=== PATIENT | male | born 1965 | race American Indian/Alaskan Native ===

== ENCOUNTER 2016-04-18 07:01 | Emergency (ER) | payer MEDICAID ==
[2016-04-18 07:39] VITALS: BP 104/67
--- NOTE | 2016-04-18 10:29 | Cat Scan Report ---
CT NECK WITHOUT CONTRAST: 04/18/16 09:53 CLINICAL: Choking, tracheostomy and history of swelling. COMPARISON: CT neck with contrast 01/03/16 and 10/10/15 TECHNIQUE: Volumetric acquisition and 1.25 mm axial scan reconstructions without contrast. FINDINGS: The airway and tracheostomy tube are satisfactory. Numerous bilateral surgical clips status post total laryngectomy. No mass, fluid collection or lymphadenopathy of the neck. Stable moderate thickening of the oral pharyngeal and hypopharyngeal mucosa. Bilateral ethmoid and maxillary sinusitis with air-fluid levels in the maxillary sinuses. The sphenoid sinuses are clear except for mild mucoperiosteal thickening of the right sphenoid sinus. IMPRESSION: Status post total laryngectomy. Persistent moderate idiopathic edema of the oropharynx and hypopharynx but no compromise of the airway.
--- NOTE | 2016-04-18 10:29 | Emergency Department Report ---
HPI - General Chief Complaint: Upper Respiratory Infection Time Seen by Provider: 04/18/16 08:26 - HPI HPI: Chief complaint: Choking HPI: Patient is 50-year-old male with history of throat cancer and has a chronic tracheostomy. Patient was seen yesterday at [facility] for the same problem of feeling like he was choking. Patient was diagnosed with bronchitis and started on Zithromax and a Medrol Dosepak. Patient states he's had 2 doses and is no better and came here. Patient has had previous problems with swelling to his neck area as gleaned from the old chart. Patient himself is difficult to evaluate as he cannot talk secondary to the trach and he cannot read or write. Most of the history was gained from or no questions. Finally patient was able to show me a text on his phone requesting pain medication until he can get back to see his doctor. Patient takes MS Contin daily and hydrocodone for breakthrough pain. Mode of arrival: EMS Source: Patient old chart Began: 4-5 days Duration: 4-5 days Context: Patient states he's been coughing up white sputum but denies fever but complains of chills. Quality: Unable to assess Severity: Improved with: Nothing Worsened with: Drinking fluids seems to make the choking worse Associated signs and symptoms: Denies nausea vomiting or diarrhea. 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 Removal of peg tube,. skin grafts, removed from left wrist and right inner thigh - Social History Smoking Status: Former Smoker Substance Use Type: None - Medications Home Medications: Home Medications Medication Instructions Recorded Confirmed Last Taken Type Docusate Sodium [Colace CAP] 100 mg PO BID PRN 10/01/15 04/18/16 04/18/16 History Hydrochlorothiazide [HCTZ] 25 mg PO QDAY 10/01/15 04/18/16 04/18/16 History Oxycodone HCl [Oxycontin] 10 mg PO QID 10/01/15 04/18/16 04/18/16 History Aspirin EC [Aspirin Enteric Coated 325 mg PO QDAY #30 tablet. 10/02/15 Unknown Rx TAB] Morphine ER [Ms Contin ER] 15 mg PO BID 10/10/15 04/18/16 04/18/16 History ALPRAZolam [Xanax TAB] 0.25 mg PO BID PRN #10 tab 10/28/15 04/18/16 Unknown Rx Pregabalin [Lyrica] 50 mg PO BID 10/28/15 04/18/16 04/18/16 History ALBUTEROL Inhaler [ProAir HFA 2 puff IH QID PRN #1 inhalation 03/05/16 04/18/16 Unknown Rx Inhaler] Cetirizine HCl [ZyrTEC] 10 mg PO QDAY #20 capsule 03/05/16 04/18/16 Unknown Rx Azithromycin [Zithromax Z-FLIP] 250 mg PO DAILY 04/18/16 04/18/16 04/18/16 History HYDROcodone/APAP 7.5-325 [[place] 1 each PO Q6HR PRN #14 tablet 04/18/16 Unknown Rx 7.5/325] methylPREDNISolone [Medrol Dose 0 mg PO QDAY 04/18/16 04/18/16 04/18/16 History Flip] ED Review of Systems ROS: Stated complaint: YOSVANY Other details as noted in HPI Comment: Unobtainable due to pts medical conditions (unable to obtain further than HPI neuro to trach and patient's inability to read and write) Physical Exam - Physical Exam Vital Signs: Vital Signs 04/18/16 07:20 Temperature 98.4 F Pulse Rate 84 Respiratory 16 Rate Blood Pressure 104/67 O2 Sat by Pulse 96 Oximetry Physical Exam: GENERAL: The patient is well-developed well-nourished . HEENT: Normocephalic. Atraumatic. Extraocular motions are intact. Patient has moist mucous membranes. Patient with a trach and collar. NECK: Supple. No meningitic signs are noted. There is no adenopathy noted. CHEST/LUNGS: Clear to auscultation. There is no respiratory distress noted. No respiratory difficulty and no drainage from the trach. HEART/CARDIOVASCULAR: Regular. There is no tachycardia. There is no gallop rub or murmur. ABDOMEN: Abdomen is soft, nontender. Patient has normal bowel sounds. There is no abdominal distention. SKIN: There is no rash. There is no edema. There is no diaphoresis. NEURO: The patient is awake, alert, and appropriate. The patient is cooperative. The patient has normal speech. MUSCULOSKELETAL: There is no tenderness or deformity. There is no limitation range of motion. There is no evidence of acute injury. ED Course Vital Signs 04/18/16 07:20 Temperature 98.4 F Pulse Rate 84 Respiratory 16 Rate Blood Pressure 104/67 O2 Sat by Pulse 96 Oximetry - Reevaluation(s) Reevaluation #1: 04/18/16 10:31 Respiratory checked trach and there is no problem. Patient then given hydrocodone with improvement. ED Medical Decision Making - Radiology Data Radiology results: report reviewed (CT of the neck showed no acute changes. Chronic edema.) Critical care attestation.: If time is entered above; I have spent that time in minutes in the direct care of this critically ill patient, excluding procedure time. ED Disposition Clinical Impression: Tracheostomy dependent Chronic pain Qualifiers: Chronic pain type: due to neoplasm Qualified Code(s): G89.3 - Neoplasm related pain (acute) (chronic) Disposition: DISCHARGED TO HOME OR SELFCARE Is pt being admited?: No Does the pt Need Aspirin: No Instructions: Tracheostomy Care (ED), Chronic Pain (ED) Prescriptions: HYDROcodone/APAP 7.5-325 [[place] 7.5/325] 1 each PO Q6HR PRN #14 tablet PRN Reason: Pain Referrals: RANDALL PÉREZ MD [Primary Care Provider] - 3-5 Days Time of Disposition: 10:42
[2016-04-18] MEDS ORDERED: NORCO 7.5/325 ONE (10:48)
[2016-04-18] MEDS ORDERED: NORCO 7.5/325 PO ONE (10:52)
== END 2016-04-18 10:58 | disposition home or self-care (01) ==
LOC: ED 07:01
DX: G89.3 Neoplasm related pain (acute) (chronic) (principal); I10 Essential (primary) hypertension; Z99.11 Dependence on respirator [ventilator] status; Z87.891 Personal history of nicotine dependence
CPT/HCPCS: 70490

== ENCOUNTER 2016-05-07 12:03 | Emergency (ER) | payer MEDICAID ==
--- NOTE | 2016-05-07 14:57 | XRay Report ---
CHEST 2 VIEWS INDICATION: Cough, fever. COMPARISON: 03/05/2016 FINDINGS: PA and lateral chest radiographs, 3 images, demonstrate better inspiration with now normal cardiomediastinal silhouette and clearing of bibasilar atelectasis. Slight increased right lateral costophrenic angle blunting though not excluded for subtle pleural fluid or pleural thickening. No large pleural effusions or CHF however. Multiple surgical clips about the thoracic inlet again seen. CONCLUSION: No significant acute chest process except for slight costophrenic angle blunting on the right, as described. Please correlate. Thank you for the opportunity to participate in this patient's care.
--- NOTE | 2016-05-07 18:14 | Emergency Department Report ---
- General Chief Complaint: Upper Respiratory Infection Stated Complaint: COUGH/YOSVANY Time Seen by Provider: 05/07/16 17:45 Source: patient Mode of arrival: Ambulatory Limitations: No Limitations - History of Present Illness Initial Comments: Patient with many PMH including HTN, TIA, and throat cancer w/ permanent tracheostomy c/o of cough productive of greenish sputum x 2 dyas. Reports fever and chills, body aches. Denies chest pain or discomfort, spitting/coughing up blood, SOB, wheezing, N/V/ D, abdominal discomfort, symptoms. Denies self treatment. Denies known sick contacts. - Related Data Home Medications Medication Instructions Recorded Confirmed Last Taken Docusate Sodium [Colace CAP] 100 mg PO BID PRN 10/01/15 04/18/16 04/18/16 Hydrochlorothiazide [HCTZ] 25 mg PO QDAY 10/01/15 04/18/16 04/18/16 Oxycodone HCl [Oxycontin] 10 mg PO QID 10/01/15 04/18/16 04/18/16 Morphine ER [Ms Contin ER] 15 mg PO BID 10/10/15 04/18/16 04/18/16 Pregabalin [Lyrica] 50 mg PO BID 10/28/15 04/18/16 04/18/16 methylPREDNISolone [Medrol Dose 0 mg PO QDAY 04/18/16 04/18/16 04/18/16 Flip] Previous Rx's Medication Instructions Recorded Last Taken Type Aspirin EC [Aspirin Enteric Coated 325 mg PO QDAY #30 tablet. 10/02/15 Unknown Rx TAB] ALPRAZolam [Xanax TAB] 0.25 mg PO BID PRN #10 tab 10/28/15 Unknown Rx Cetirizine HCl [ZyrTEC] 10 mg PO QDAY #20 capsule 03/05/16 Unknown Rx HYDROcodone/APAP 7.5-325 [[place] 1 each PO Q6HR PRN #14 tablet 04/18/16 Unknown Rx 7.5/325] ALBUTEROL Inhaler [ProAir HFA 2 puff IH QID PRN #1 inhalation 05/07/16 Unknown Rx Inhaler] Azithromycin [Zithromax Z-FLIP] 250 mg PO DAILY #6 tablet 05/07/16 Unknown Rx Allergies Allergy/AdvReac Type Severity Reaction Status Date / Time No Known Allergies Allergy Verified 05/07/16 14:15 ED Review of Systems ROS: Stated complaint: COUGH/YOSVANY Other details as noted in HPI Comment: All other systems reviewed and negative ED Past Medical Hx - Past Medical History Hx Hypertension: Yes Hx Congestive Heart Failure: No Hx Diabetes: No Hx Deep Vein Thrombosis: Yes (left upper extremity secondary to a port) Hx Asthma: No Hx COPD: No Additional medical history: throat cancer, trach placed 2012; 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 Removal of peg tube,. skin grafts, removed from left wrist and right inner thigh - Social History Smoking Status: Former Smoker Substance Use Type: None - Medications Home Medications: Home Medications Medication Instructions Recorded Confirmed Last Taken Type Docusate Sodium [Colace CAP] 100 mg PO BID PRN 10/01/15 04/18/16 04/18/16 History Hydrochlorothiazide [HCTZ] 25 mg PO QDAY 10/01/15 04/18/16 04/18/16 History Oxycodone HCl [Oxycontin] 10 mg PO QID 10/01/15 04/18/16 04/18/16 History Aspirin EC [Aspirin Enteric Coated 325 mg PO QDAY #30 tablet.dr 10/02/15 Unknown Rx TAB] Morphine ER [Ms Contin ER] 15 mg PO BID 10/10/15 04/18/16 04/18/16 History ALPRAZolam [Xanax TAB] 0.25 mg PO BID PRN #10 tab 10/28/15 04/18/16 Unknown Rx Pregabalin [Lyrica] 50 mg PO BID 10/28/15 04/18/16 04/18/16 History Cetirizine HCl [ZyrTEC] 10 mg PO QDAY #20 capsule 03/05/16 04/18/16 Unknown Rx HYDROcodone/APAP 7.5-325 [[place] 1 each PO Q6HR PRN #14 tablet 04/18/16 Unknown Rx 7.5/325] methylPREDNISolone [Medrol Dose 0 mg PO QDAY 04/18/16 04/18/16 04/18/16 History Flip] ALBUTEROL Inhaler [ProAir HFA 2 puff IH QID PRN #1 inhalation 05/07/16 Unknown Rx Inhaler] Azithromycin [Zithromax Z-FLIP] 250 mg PO DAILY #6 tablet 05/07/16 Unknown Rx ED Physical Exam - General Limitations: No Limitations General appearance: alert, in no apparent distress - Head Head exam: Present: atraumatic, normocephalic - Eye Eye exam: Present: normal appearance, PERRL, EOMI - ENT ENT exam: Present: normal exam, normal orophraynx, mucous membranes moist, TM's normal bilaterally, normal external ear exam - Neck Neck exam: Absent: normal inspection (thracheostomy), tenderness, meningismus, full ROM (contracture.), lymphadenopathy - Respiratory Respiratory exam: Present: normal lung sounds bilaterally. Absent: respiratory distress, wheezes, rales, rhonchi, stridor, chest wall tenderness, accessory muscle use, decreased breath sounds, prolonged expiratory - Cardiovascular Cardiovascular Exam: Present: regular rate, normal rhythm - GI/Abdominal GI/Abdominal exam: Present: soft, normal bowel sounds. Absent: distended, tenderness - Extremities Exam Extremities exam: Present: normal inspection, full ROM, normal capillary refill. Absent: tenderness, pedal edema, joint swelling, calf tenderness - Back Exam Back exam: Present: normal inspection, full ROM. Absent: tenderness, CVA tenderness (R), CVA tenderness (L) - Neurological Exam Neurological exam: Present: alert, oriented X3, normal gait, reflexes normal. Absent: motor sensory deficit - Psychiatric Psychiatric exam: Present: normal affect, normal mood - Skin Skin exam: Present: warm, dry, intact, normal color. Absent: rash, cyanosis, diaphoretic, petechiae, pallor ED Course Vital Signs 05/07/16 14:17 Temperature 99.1 F Pulse Rate 82 Respiratory 19 Rate Blood Pressure 142/81 O2 Sat by Pulse 100 Oximetry ED Medical Decision Making - Radiology Data Radiology results: report reviewed [facility] radiology report CXR, slight blunting of right costophrenic angle (see full report). - Differential Diagnosis pneumonia, bronchitis Critical care attestation.: If time is entered above; I have spent that time in minutes in the direct care of this critically ill patient, excluding procedure time. ED Disposition Clinical Impression: Bronchitis Disposition: DISCHARGED TO HOME OR SELFCARE Is pt being admited?: No Does the pt Need Aspirin: No Condition: Stable Instructions: Acute Bronchitis (ED) Prescriptions: ALBUTEROL Inhaler [ProAir HFA Inhaler] 2 puff IH QID PRN #1 inhalation PRN Reason: Shortness Of Breath Azithromycin [Zithromax Z-FLIP] 250 mg PO DAILY #6 tablet Referrals: DION GRIER MD [Primary Care Provider] - 2-3 Days
[2016-05-07 18:41] VITALS: BP 135/84
== END 2016-05-07 18:41 | disposition home or self-care (01) ==
LOC: ED 12:03
DX: J40 Bronchitis, not specified as acute or chronic (principal); I10 Essential (primary) hypertension; Z79.82 Long term (current) use of aspirin; Z86.73 Personal history of transient ischemic attack (TIA), and cerebral infarction without residual deficits; Z85.89 Personal history of malignant neoplasm of other organs and systems; Z86.718 Personal history of other venous thrombosis and embolism; Z87.891 Personal history of nicotine dependence
CPT/HCPCS: 71020

== ENCOUNTER 2016-05-21 05:23 | Inpatient (IN) | payer MEDICAID ==
[2016-05-21 07:45] LABS: Basophils % (Auto) 0.5 % (0.0-1.8); Eosinophils % (Auto) 0.5 % (0.0-4.3); Hemoglobin 9.6 gm/dl (11.8-15.2); Mean Corpuscular HGB Conc 33 % (32-34); Mean Corpuscular Hemoglobin 32 pg (28-32); Mean Corpuscular Volume 97 fl (84-94); Platelet Count 205 K/mm3 (140-440); Red Blood Count 2.99 M/mm3 (3.65-5.03); Red Cell Distribution Width 15.9 % (13.2-15.2); White Blood Count 4.9 K/mm3 (4.5-11.0)
--- NOTE | 2016-05-21 07:55 | Admit Criteria Form ---
Admission Criteria Documentation: SYNCOPE Clinical Indications for Admission to Inpatient Care ( Place 'X' for any and all applicable criteria): Admission is indicated for syncope and ANY ONE of the following (1)(2)(3)(4)(5) (6)(7) : [X ]I. Inpatient admission required rather than observation care (Also use Syncope: Observation Care Criteria as appropriate) because of ANY ONE of the following: [ ]a) Hemodynamic instability that is severe or persistent [ ]b) Cardiac arrhythmias of immediate concern identified or strongly suspected (eg, needs electrophysiologic study) [ ]c) Acute coronary syndrome identified (Also use Myocardial Infarction or Angina Criteria form ) [ ]d) Structural cardiac disorder (eg, aortic stenosis) suspected as cause that requires immediate correction [ ]e) Respiratory symptoms (eg, dyspnea, tachypnea) that are severe or persistent [X ]f) Neurologic signs or symptoms that are severe or persistent ( eg, stroke, seizures, altered mental status) [ ]g) Severe electrolyte abnormalities requiring inpatient care [ ]h) Supplemental oxygen or respiratory treatment for over 24 hrs that are performable only in acute inpatient setting [ ]i) IV fluid to replace significant ongoing (eg, for over 24 hrs ) losses (>3 L/m2 per day) [ ]j) Continuous intravenous infusion of anticoagulation, platelet inhibitor, vasoactive, or antiarrhythmic medication(15)(16) [ ]k) Pulmonary artery catheter monitoring [ ]l) Temporary pacemaker placement(17) [ ]m) Emergent cardioversion(18) [ ]n) Other conditions, treatment or monitoring requiring inpatient admission [ ]II. Suspicion of imminently dangerous cause (eg, rare causes like pericardial tamponade, pulmonary embolism) [ ]III. Syncope causing severe injury requiring hospitalization Extended stay beyond goal length of stay may be needed for(28) [ ]a) Dangerous arrhythmia(15)(23)(27)(29) [ ]b) Myocardial ischemia [ ]c) Seizure disorder [ ]d) Syncope-related injuries The original [place] content created by [employer] has been revised. The portions of the content which have been revised are identified through the use of italic text or in bold, and [facility] [employer] has neither reviewed nor approved the modified material. All other unmodified content is copyright [employer] [facility] [employer]. Please see references footnoted in the original [facility] edition 2016 Admission Criteria Met: Yes
[2016-05-21 08:15] LABS: Anion Gap 19 mmol/L; BUN/Creatinine Ratio 18.33; Blood Urea Nitrogen 11 mg/dL (9-20); Calcium 8.8 mg/dL (8.4-10.2); Carbon Dioxide 23 mmol/L (22-30); Chloride 98.1 mmol/L (98-107); Glucose 92 mg/dL (75-100); Potassium 3.7 mmol/L (3.6-5.0); Sodium 136 mmol/L (137-145)
--- NOTE | 2016-05-21 08:17 | Cat Scan Report ---
CT HEAD WITHOUT CONTRAST INDICATION: Headache. COMPARISON: 10/01/2015. FINDINGS: Noncontrast head CT again demonstrates age appropriate ventricles and sulci with mild periventricular and mild to moderate bilateral kruse radiata hypodense small vessel ischemic disease extending to the vertex as on axial image 39, series 2, amongst others. No definite acute infarct, hemorrhage, mass effect or midline shift. No abnormal extra-axial fluid collections. Normal posterior fossa with preserved basilar cisterns. Severe left and moderate to severe right ethmoid air cell opacification again noted as also mild bilateral sphenoid sinusitis. Right frontal sinus hypoplastic. Minimal left frontal sinus mucosal thickening. Moderate to severe bilateral mastoid air cell opacification also again seen. Mild atherosclerotic internal carotid artery calcifications. Intact calvarium. Normal scalp. Right earring. Right more than left external auditory canal debris may be directly visualized. Edentulous jaw. Numerous surgical clips in the neck. CONCLUSION: No acute intracranial CT abnormality or significant interval change with age appropriate atrophy, microvascular changes, extensive sinus disease and mastoiditis noted, as described. Thank you for the opportunity to participate in this patient's care.
--- NOTE | 2016-05-21 08:24 | Emergency Department Report ---
HPI - General Chief Complaint: Syncope Time Seen by Provider: 05/21/16 07:47 - HPI HPI: 50-year-old Afro[place] male presents to the emergency department by EMS from home after he had 4 episodes of loss of consciousness. Patient's brothers bedside and says that he heard the patient walking around and then heard a noise and found the patient unresponsive on the ground. He did not feel that the patient had a pulse that he started doing chest compressions and shaking the patient and eventually the patient appeared to take a deep breath and became more awake. After that time the patient was sitting on the bed and his eyes rolled in the back of his head and he appeared to become very rigid and unresponsive it again. The brother says that this happened about 4 times in total. The patient is been complaining of a headache down the left side of his face, 10 out of 10, that is been going on for the past few days. Patient is nonverbal at baseline secondary to a tracheostomy. Patient took 2 Tylenol this morning and one oxycodone. He has a past medical history of DVT to the left upper extremity secondary to a port, hypertension, throat cancer and trach placement. 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 Removal of peg tube,. skin grafts, removed from left wrist and right inner thigh - Social History Smoking Status: Former Smoker Substance Use Type: None - Medications Home Medications: Home Medications Medication Instructions Recorded Confirmed Last Taken Type Docusate Sodium [Colace CAP] 100 mg PO BID PRN 10/01/15 05/21/16 04/18/16 History Hydrochlorothiazide [HCTZ] 25 mg PO QDAY 10/01/15 05/21/16 04/18/16 History Oxycodone HCl [Oxycontin] 10 mg PO QID 10/01/15 05/21/16 04/18/16 History Morphine ER [Ms Contin ER] 15 mg PO BID 10/10/15 05/21/16 04/18/16 History Pregabalin [Lyrica] 50 mg PO BID 10/28/15 05/21/16 04/18/16 History HYDROcodone/APAP 7.5-325 [[place] 1 each PO Q6HR PRN #14 tablet 04/18/16 05/21/16 Unknown Rx 7.5/325] ALBUTEROL Inhaler [ProAir HFA 2 puff IH QID PRN #1 inhalation 05/07/16 05/21/16 Unknown Rx Inhaler] Potassium Chloride [K-Dur] 10 meq PO DAILY 05/21/16 05/21/16 Unknown History ED Review of Systems ROS: Stated complaint: SYNCOPE Other details as noted in HPI Comment: All other systems reviewed and negative Constitutional: denies: chills, fever Eyes: denies: eye pain, eye discharge, vision change ENT: denies: ear pain, throat pain Respiratory: denies: cough, shortness of breath, wheezing Cardiovascular: syncope. denies: chest pain, palpitations Gastrointestinal: denies: abdominal pain, nausea, diarrhea Genitourinary: denies: urgency, dysuria Musculoskeletal: denies: back pain, joint swelling, arthralgia Skin: denies: rash, lesions Neurological: headache. denies: numbness Physical Exam - Physical Exam Vital Signs: Vital Signs 05/21/16 05/21/16 05/21/16 05:26 05:57 06:00 Temperature 97.6 F Pulse Rate 52 L 50 L Respiratory 18 15 Rate Blood Pressure 83/57 89/55 78/47 Blood Pressure [Left] O2 Sat by Pulse 99 91 Oximetry 05/21/16 05/21/16 05/21/16 06:05 06:11 06:15 Temperature Pulse Rate 53 L 50 L 52 L Respiratory 17 16 22 Rate Blood Pressure 92/58 92/58 92/58 Blood Pressure [Left] O2 Sat by Pulse 99 95 97 Oximetry 05/21/16 05/21/16 05/21/16 06:21 06:25 06:31 Temperature Pulse Rate 49 L 74 58 L Respiratory 12 15 17 Rate Blood Pressure 92/58 92/58 89/55 Blood Pressure [Left] O2 Sat by Pulse 99 97 Oximetry 05/21/16 05/21/16 05/21/16 06:35 06:41 06:45 Temperature Pulse Rate 57 L 52 L 56 L Respiratory 19 14 14 Rate Blood Pressure 93/56 93/56 93/56 Blood Pressure [Left] O2 Sat by Pulse 100 97 74 L Oximetry 05/21/16 05/21/16 05/21/16 06:51 06:55 07:00 Temperature Pulse Rate 77 56 L 55 L Respiratory 17 15 19 Rate Blood Pressure 93/56 93/56 94/59 Blood Pressure [Left] O2 Sat by Pulse 99 95 97 Oximetry 05/21/16 05/21/16 05/21/16 07:05 07:11 07:15 Temperature Pulse Rate 57 L 52 L 58 L Respiratory 13 17 19 Rate Blood Pressure 94/59 94/59 94/59 Blood Pressure [Left] O2 Sat by Pulse 98 98 89 Oximetry 05/21/16 05/21/16 07:22 07:38 Temperature Pulse Rate 50 L 74 Respiratory 20 Rate Blood Pressure Blood Pressure 100/69 [Left] O2 Sat by Pulse Oximetry Physical Exam: GENERAL: The patient is well-developed well-nourished. HEENT: Normocephalic. Atraumatic. Extraocular motions are intact. Patient has moist mucous membranes. Pupils equal reactive to light bilateral. No nystagmus. NECK: Supple. Trachea is midline. Trach and collar in place. CHEST/LUNGS: Clear to auscultation. There is no respiratory distress noted. HEART/CARDIOVASCULAR: Regular. There is no tachycardia. There is no gallop rub or murmur. ABDOMEN: Abdomen is soft, nontender. Patient has normal bowel sounds. There is no abdominal distention. SKIN: There is no rash. There is no edema. There is no diaphoresis. NEURO: The patient is awake, alert, and oriented. The patient is cooperative. The patient has no focal neurologic deficits. Patient is nonverbal secondary to tracheostomy. MUSCULOSKELETAL: There is no tenderness or deformity. There is no limitation range of motion. There is no evidence of acute injury. ED Course Vital Signs 05/21/16 05/21/16 05/21/16 05:26 05:57 06:00 Temperature 97.6 F Pulse Rate 52 L 50 L Respiratory 18 15 Rate Blood Pressure 83/57 89/55 78/47 Blood Pressure [Left] O2 Sat by Pulse 99 91 Oximetry 05/21/16 05/21/16 05/21/16 06:05 06:11 06:15 Temperature Pulse Rate 53 L 50 L 52 L Respiratory 17 16 22 Rate Blood Pressure 92/58 92/58 92/58 Blood Pressure [Left] O2 Sat by Pulse 99 95 97 Oximetry 05/21/16 05/21/16 05/21/16 06:21 06:25 06:31 Temperature Pulse Rate 49 L 74 58 L Respiratory 12 15 17 Rate Blood Pressure 92/58 92/58 89/55 Blood Pressure [Left] O2 Sat by Pulse 99 97 Oximetry 05/21/16 05/21/16 05/21/16 06:35 06:41 06:45 Temperature Pulse Rate 57 L 52 L 56 L Respiratory 19 14 14 Rate Blood Pressure 93/56 93/56 93/56 Blood Pressure [Left] O2 Sat by Pulse 100 97 74 L Oximetry 05/21/16 05/21/16 05/21/16 06:51 06:55 07:00 Temperature Pulse Rate 77 56 L 55 L Respiratory 17 15 19 Rate Blood Pressure 93/56 93/56 94/59 Blood Pressure [Left] O2 Sat by Pulse 99 95 97 Oximetry 05/21/16 05/21/16 05/21/16 07:05 07:11 07:15 Temperature Pulse Rate 57 L 52 L 58 L Respiratory 13 17 19 Rate Blood Pressure 94/59 94/59 94/59 Blood Pressure [Left] O2 Sat by Pulse 98 98 89 Oximetry 05/21/16 05/21/16 07:22 07:38 Temperature Pulse Rate 50 L 74 Respiratory 20 Rate Blood Pressure Blood Pressure 100/69 [Left] O2 Sat by Pulse Oximetry ED Medical Decision Making - Lab Data Result diagrams: 05/21/16 07:30 05/21/16 07:30 - EKG Data -: EKG Interpreted by Me EKG shows normal: sinus rhythm, axis, intervals, QRS complexes, ST-T waves Rate: normal - EKG Data When compared to previous EKG there are: previous EKG unavailable Interpretation: normal EKG - Radiology Data Radiology results: report reviewed, image reviewed interpreted by me: Chest x-ray did not show any acute process. Heart is normal shape and size. No effusions. No pneumothorax. No signs of pneumonia seen. - Medical Decision Making This is a 50-year-old male presents to the emergency department after having 4 syncopal episodes that may have also been seizures, with 3 of them witnessed. Since being in the emergency department the patient has been awake and alert and there is been no further syncope or seizure-like activity. Patient's EKG shows normal sinus rhythm without ST elevation IA, dysrhythmia or ischemia. Patient's labs and an mostly unremarkable other than signs of hypothyroidism with a TSH greater than 25. However with multiple recurring episodes of loss of consciousness, the patient will need continued monitoring and further evaluation and has been accepted for admission by the hospitalist. - Differential Diagnosis syncope, seizure, brain bleed, CVA Critical Care Time: No Critical care attestation.: If time is entered above; I have spent that time in minutes in the direct care of this critically ill patient, excluding procedure time. ED Disposition Clinical Impression: Syncope Qualifiers: Syncope type: unspecified Qualified Code(s): R55 - Syncope and collapse Hypothyroid Qualifiers: Hypothyroidism type: unspecified Qualified Code(s): E03.9 - Hypothyroidism, unspecified Anemia Qualifiers: Anemia type: unspecified type Qualified Code(s): D64.9 - Anemia, unspecified Hypotension Qualifiers: Hypotension type: unspecified hypotension type Qualified Code(s): I95.9 - Hypotension, unspecified Disposition: OP ADMITTED IP TO THIS HOSP Is pt being admited?: Yes Condition: Stable Time of Disposition: 14:12
[2016-05-21] MEDS ORDERED: NACL 0.9% 1000 ML 1,000 ML IV ONE (08:25)
--- NOTE | 2016-05-21 10:56 | XRay Report ---
SINGLE VIEW CHEST: Compared to 05/07/16. HISTORY: Syncope/hypertension. FINDINGS: Normal cardiomediastinal silhouette. Trachea is midline. No consolidation, pneumothorax or pleural effusion. IMPRESSION: No acute cardiopulmonary findings.
[2016-05-21] MEDS ORDERED: DULCOLAX PR PRN (11:20)
[2016-05-21] MEDS ORDERED: TYLENOL PO PRN (11:20)
[2016-05-21] MEDS ORDERED: ZOFRAN IV PRN (11:20)
[2016-05-21] MEDS ORDERED: MILK OF MAGNESIA PO PRN (11:20)
[2016-05-21] MEDS ORDERED: ATIVAN IV PRN (11:24)
[2016-05-21] MEDS ORDERED: XANAX PO PRN (11:25)
[2016-05-21] MEDS ORDERED: CLARITIN PO ONE (11:26)
[2016-05-21] MEDS ORDERED: PROVENTIL IH PRN (11:26)
[2016-05-21] MEDS ORDERED: CLARITIN ONE (13:12)
[2016-05-21] MEDS ORDERED: COLACE PO PRN (14:28)
--- NOTE | 2016-05-21 14:34 | History and Physical Report ---
History of Present Illness Date of examination: 05/21/16 Date of admission: 05/21/16 11:20 Chief complaint: Witnessed Seizure History of present illness: Patient is a 50 year old male with hx of laryngeal carcinoma S/p Trach, HTN, Remote hx of DVT, skin graft who presented to the ER after 4 episodes of witnessed seizure following a syncopal episode. The patient who is non verbal secondary to the Trache and Throat CA according to the brother Who reported that he heard a loud noise and when he went to check on him found the patient unresponsive on the ground. he placed him on the bed and when he did not feel that the patient had a pulse that he started doing chest compressions and shaking the patient and eventually the patient appeared to take a deep breath and became more awake. After that time the patient was sitting on the bed and his eyes rolled in the back of his head and he appeared to become very rigid and unresponsive it again. The brother says that this happened about 4 times in total. The patient denies any knowledge of the event or any prior event. In the ER he complained of headache down the left side of his face, 10 out of 10, but reports its been going on for the past few days. ER documentation shows Patient took 2 Tylenol this morning and one oxycodone. ROS Constitutional: No fever, fatigue or weight loss. Skin: No rash. Eyes: No recent vision problems or eye pain. ENT: No congestion, ear pain, or sore throat. Endocrine: No thyroid problems. Cardiovascular: No chest pain. Respiratory: No cough, shortness of breath, congestion, or wheezing. Gastrointestinal: No abdominal pain, nausea, vomiting, or diarrhea. Genitourinary: No dysuria. Musculoskeletal: No joint swelling. Neurologic: Positive headache, from a reported seizure and syncopal episode . Hematologic: No unusual bruising or bleeding. Psychiatric: No psychiatric problems, hallucinations or depression. All other systems reviewed and otherwise negative. Past History Past Medical History: cancer (Throat CA), DVT (secondary to port) Past Surgical History: Other (tracheostomy, peg tube placement, skin graft) Family history: no significant family history Medications and Allergies Allergies Allergy/AdvReac Type Severity Reaction Status Date / Time No Known Allergies Allergy Verified 05/07/16 14:15 Home Medications Medication Instructions Recorded Confirmed Last Taken Type Docusate Sodium [Colace CAP] 100 mg PO BID PRN 10/01/15 05/21/16 04/18/16 History Hydrochlorothiazide [HCTZ] 25 mg PO QDAY 10/01/15 05/21/16 04/18/16 History Oxycodone HCl [Oxycontin] 10 mg PO QID 10/01/15 05/21/16 04/18/16 History Morphine ER [Ms Contin ER] 15 mg PO BID 10/10/15 05/21/16 04/18/16 History Pregabalin [Lyrica] 50 mg PO BID 10/28/15 05/21/16 04/18/16 History HYDROcodone/APAP 7.5-325 [[place] 1 each PO Q6HR PRN #14 tablet 04/18/16 05/21/16 Unknown Rx 7.5/325] ALBUTEROL Inhaler [ProAir HFA 2 puff IH QID PRN #1 inhalation 05/07/16 05/21/16 Unknown Rx Inhaler] Potassium Chloride [K-Dur] 10 meq PO DAILY 05/21/16 05/21/16 Unknown History Active Meds: Active Medications Acetaminophen (Tylenol) 650 mg PO Q4H PRN PRN Reason: Pain MILD(1-3)/Fever >100.5/HERNANDEZ Acetaminophen/Hydrocodone Bitart ([place] 7.5/325) 1 each PO Q6HR PRN PRN Reason: Pain Albuterol (Proventil) 2.5 mg IH Q4H PRN PRN Reason: shortness of breath Albuterol/Ipratropium (Duoneb 0.5 Mg-3 Mg/3 Ml Soln) 1 ampul IH TIDRT DB Alprazolam (Xanax) 0.25 mg PO BID PRN PRN Reason: Anxiety Bisacodyl (Dulcolax) 10 mg MA QDAY PRN PRN Reason: Constipation unrelieved by MOM Docusate Sodium (Colace) 100 mg PO BID PRN PRN Reason: Nausea And Vomiting Hydrochlorothiazide (Hctz) 25 mg PO QDAY DB Lorazepam (Ativan) 1 mg IV Q4H PRN PRN Reason: Seizures Magnesium Hydroxide (Milk Of Magnesia) 30 ml PO Q4H PRN PRN Reason: Constipation Morphine Sulfate (Ms Contin Er) 15 mg PO BID DB Ondansetron HCl (Zofran) 4 mg IV Q8H PRN PRN Reason: N/V unrelieved by Reglan Potassium Chloride (K-Dur) 10 meq PO DAILY DB Pregabalin (Lyrica) 50 mg PO BID DB Exam - Physical Exam Narrative exam: VITAL SIGNS: Reviewed. GENERAL: The patient appeared well nourished and normally developed. Vital signs as documented. HEAD: No signs of head trauma. EYES: Pupils are equal. Extraocular motions intact. EARS: Hearing grossly intact. MOUTH: Oropharynx is normal. NECK: Tracheostomy, no DJD CHEST: Chest with clear breath sounds bilaterally. No wheezes, rales, or rhonchi. CARDIAC: Regular rate and rhythm. S1 and S2, without murmurs, gallops, or rubs. VASCULAR: No Edema. Peripheral pulses normal and equal in all extremities. ABDOMEN: Soft, without detectable tenderness. No sign of distention. No rebound or guarding, and no masses palpated. Bowel Sounds normal. MUSCULOSKELETAL: Good range of motion of all major joints. Extremities without clubbing, cyanosis or edema. NEUROLOGIC EXAM: Alert and oriented x 3. No focal sensory or strength deficits. Speech normal. Follows commands. PSYCHIATRIC: Mood normal. SKIN: skin graft. - Constitutional Vitals: Temp Pulse Resp BP Pulse Ox 0.3 F L 59 L 18 114/72 97 05/21/16 13:00 05/21/16 13:00 05/21/16 13:00 05/21/16 13:00 05/21/16 13:00 Results - Labs CBC & Chem 7: 05/22/16 06:33 05/21/16 07:30 Labs: Laboratory Last Values WBC 4.9 K/mm3 (4.5-11.0) 05/21/16 07:30 RBC 2.99 M/mm3 (3.65-5.03) L 05/21/16 07:30 Hgb 9.6 gm/dl (11.8-15.2) L 05/21/16 07:30 Hct 29.0 % (35.5-45.6) L 05/21/16 07:30 MCV 97 fl (84-94) H 05/21/16 07:30 MCH 32 pg (28-32) 05/21/16 07:30 MCHC 33 % (32-34) 05/21/16 07:30 RDW 15.9 % (13.2-15.2) H 05/21/16 07:30 Plt Count 205 K/mm3 (140-440) 05/21/16 07:30 Lymph % (Auto) 12.0 % (13.4-35.0) L 05/21/16 07:30 [place] % (Auto) 9.4 % (0.0-7.3) H 05/21/16 07:30 Eos % (Auto) 0.5 % (0.0-4.3) 05/21/16 07:30 Baso % (Auto) 0.5 % (0.0-1.8) 05/21/16 07:30 Lymph # 0.6 K/mm3 (1.2-5.4) L 05/21/16 07:30 [place] # 0.5 K/mm3 (0.0-0.8) 05/21/16 07:30 Eos # 0.0 K/mm3 (0.0-0.4) 05/21/16 07:30 Baso # 0.0 K/mm3 (0.0-0.1) 05/21/16 07:30 Seg Neutrophils % 77.6 % (40.0-70.0) H 05/21/16 07:30 Seg Neutrophils # 3.8 K/mm3 (1.8-7.7) 05/21/16 07:30 Sodium 136 mmol/L (137-145) L 05/21/16 07:30 Potassium 3.7 mmol/L (3.6-5.0) 05/21/16 07:30 Chloride 98.1 mmol/L (98-107) 05/21/16 07:30 Carbon Dioxide 23 mmol/L (22-30) 05/21/16 07:30 Anion Gap 19 mmol/L 05/21/16 07:30 BUN 11 mg/dL (9-20) 05/21/16 07:30 Creatinine 0.6 mg/dL (0.8-1.5) L 05/21/16 07:30 Estimated GFR > 60 ml/min 05/21/16 07:30 BUN/Creatinine Ratio 18.33 % 05/21/16 07:30 Glucose 92 mg/dL (75-100) 05/21/16 07:30 Calcium 8.8 mg/dL (8.4-10.2) 05/21/16 07:30 Total Creatine Kinase 70 units/L (55-170) 05/21/16 09:41 Troponin T < 0.010 ng/mL (0.00-0.029) 05/21/16 09:31 TSH 25.270 mlU/mL (0.270-4.200) H 05/21/16 09:41 - Imaging and Cardiology MRI - head: pending Assessment and Plan Assessment and plan: Patient is a 50 year old male with hx of laryngeal carcinoma S/p Trach, HTN, Remote hx of DVT, skin graft who presented to the ER after 4 episodes of witnessed seizure following a syncopal episode. The patient who is non verbal secondary to the Trache and Throat CA according to the brother Who reported that he heard a loud noise and when he went to check on him found the patient unresponsive on the ground. he placed him on the bed and when he did not feel that the patient had a pulse that he started doing chest compressions and shaking the patient and eventually the patient appeared to take a deep breath and became more awake. After that time the patient was sitting on the bed and his eyes rolled in the back of his head and he appeared to become very rigid and unresponsive it again. The brother says that this happened about 4 times in total. The patient denies any knowledge of the event or any prior event. In the ER he complained of headache down the left side of his face, 10 out of 10, but reports its been going on for the past few days. ER documentation shows Patient took 2 Tylenol this morning and one oxycodone. * Recurrent seizure-witnessed with postictal phase * Syncope * Laryngeal carcinoma status post tracheostomy Plan * Admit to [facility] * Check echocardiogram * EEG * Neurology consult * Check MRI brain to rule out metastatic disease * Ativan IV when necessary for seizure * Resume Medications * DVT/GI Prophy Advance Directives: Yes Plan of care discussed with patient/family: Yes
[2016-05-21] MEDS: DUONEB 0.5 MG-3 MG/3 ML SOLN IH SCH ×2 (14:54→20:10)
[2016-05-21] MEDS: LYRICA PO SCH ×2 (15:13→22:00)
[2016-05-21] MEDS: MS CONTIN ER PO SCH ×2 (15:14→22:01)
--- NOTE | 2016-05-21 19:49 | Magnetic Resonance Report ---
FINAL REPORT PROCEDURE: MR BRAIN WO/W CON TECHNIQUE: Magnetic resonance imaging of the brain was performed before and after the IV injection of paramagnetic contrast. HISTORY: Seizure. History of throat cancer. COMPARISON: CT scan of the brain dated 05/21/2016. FINDINGS: Skull base and calvarium: Normal. Paranasal sinuses: Pansinusitis, with hypoplastic right frontal sinus. Findings most severe in the ethmoid sinuses. Mild rightward septal deviation. Bilateral mastoiditis. Cerebellum: No evidence of hemorrhage, ischemia or mass . Brainstem: No evidence of hemorrhage, ischemia or mass . Cerebrum: No evidence of hemorrhage, ischemia or mass. Mild atrophy. Subtle area of abnormal signal intensity on diffusion-weighted imaging seen in the medulla/foramina magnum. Similar punctate areas of abnormal diffusion weighted signal intensity in the bilateral basal ganglia. 2-3 millimeter areas of CSF signal intensity on FLAIR imaging seen bilaterally at the vertices. These do not enhance. Moderate periventricular white matter abnormal signal intensity, best seen on FLAIR imaging. Ventricles: Normal in size and morphology for the patient's age. Pituitary gland and sella: Normal. Globes and orbits: Normal. Vasculature: Normal arterial and venous flow voids. Abnormal enhancement: None. Other: None. IMPRESSION: Subtle focal area of abnormal diffusion weighted imaging in the foramen magnum/medulla with punctate areas of abnormal diffusion signal intensity in the basal ganglia, may be artifact. Consider further evaluation and followup if there is concern for subtle ischemia this area. Atrophy. White matter changes likely related to chronic small vessel ischemic change. Also consider demyelination, infectious/inflammatory process, and can be seen with migraines. 2-3 millimeters areas of CSF signal intensity in the bilateral vertices, likely prominent perivascular spaces. These can also be re-evaluated on followup examination. No enhancing mass lesion. Pansinusitis and mastoiditis.
[2016-05-22 07:06] LABS: Basophils % (Auto) 0.9 % (0.0-1.8); Eosinophils % (Auto) 0.9 % (0.0-4.3); Hematocrit 30.7 % (35.5-45.6); Hemoglobin 10.1 gm/dl (11.8-15.2); Mean Corpuscular HGB Conc 33 % (32-34); Mean Corpuscular Hemoglobin 32 pg (28-32); Mean Corpuscular Volume 96 fl (84-94); Platelet Count 234 K/mm3 (140-440); Red Blood Count 3.19 M/mm3 (3.65-5.03); Red Cell Distribution Width 16.1 % (13.2-15.2); White Blood Count 4.1 K/mm3 (4.5-11.0)
[2016-05-22 07:41] LABS: BUN/Creatinine Ratio 14.28; Blood Urea Nitrogen 10 mg/dL (9-20); Carbon Dioxide 26 mmol/L (22-30); Chloride 103.7 mmol/L (98-107); Glucose 91 mg/dL (75-100); Potassium 3.9 mmol/L (3.6-5.0); Sodium 142 mmol/L (137-145)
[2016-05-22 07:56] LABS: Anion Gap 16 mmol/L
[2016-05-22] MEDS: NORCO 7.5/325 PO PRN ×2 (08:05→16:15)
[2016-05-22] MEDS: DUONEB 0.5 MG-3 MG/3 ML SOLN IH SCH ×3 (08:23→19:29)
[2016-05-22] MEDS: HCTZ PO SCH (10:39)
[2016-05-22] MEDS: MS CONTIN ER PO SCH ×2 (10:39→21:51)
[2016-05-22] MEDS: K-DUR PO SCH (10:40)
[2016-05-22] MEDS: LYRICA PO SCH ×2 (10:45→21:50)
--- NOTE | 2016-05-22 13:48 | Progress Note ---
Assessment and Plan Assessment and plan: 1. Syncopal episode Syncopal episode followed by seizure activity per family member report Cardiac enzymes within normal limits, EKG with no ischemic changes; will obtain echocardiogram 2. New-onset seizures Patient with laryngeal cancer, concern for brain metastasis as etiology of seizures CT had obtained and showed no acute abnormality, age-related atrophy MRI brain also obtained and showed no mass, atrophy, softer changes not clearly described EEG ordered Will await neurology evaluation and recommendations Will rule out infection (chest x-ray normal, obtain UA) and other possible etiologies (electrolytes within normal limits; check UDS) 3. Hypothyroidism Levothyroxine dose unknown by family TSH elevated, but free T4 within normal limits Start levothyroxine 75 mcg and adjust if needed 3. Hypertension On HCTZ Monitor BP 4. Macrocytic anemia Check B12 and folate 5. Laryngeal carcinoma status post tracheostomy 6. Remote DVT port related 7. DVT prophylaxis Start Lovenox History Interval history: Doing well, no seizure activity after admitted, no other symptoms Family at bedside Hospitalist Physical - Constitutional Vitals: Temp Pulse Resp BP Pulse Ox 98.2 F 75 18 116/77 99 05/22/16 12:35 05/22/16 12:35 05/22/16 12:35 05/22/16 12:35 05/22/16 10:00 General appearance: Present: no acute distress, well-nourished - EENT Eyes: Present: PERRL, EOM intact - Neck Neck: Present: supple, normal ROM. Absent: masses or JVD - Respiratory Respiratory effort: normal Respiratory: bilateral: CTA, negative: rales, rhonchi, wheezing - Cardiovascular Rhythm: regular Heart Sounds: Present: S1 & S2. Absent: systolic murmur - Extremities Extremities: no ischemia - Abdominal General gastrointestinal: soft, non-tender, non-distended, normal bowel sounds - Neurologic Neurologic: CNII-XII intact, no focal deficits Results - Labs CBC & Chem 7: 05/22/16 06:33 05/22/16 06:33 Labs: Laboratory Last Values WBC 4.1 K/mm3 (4.5-11.0) L 05/22/16 06:33 RBC 3.19 M/mm3 (3.65-5.03) L 05/22/16 06:33 Hgb 10.1 gm/dl (11.8-15.2) L 05/22/16 06:33 Hct 30.7 % (35.5-45.6) L 05/22/16 06:33 MCV 96 fl (84-94) H 05/22/16 06:33 MCH 32 pg (28-32) 05/22/16 06:33 MCHC 33 % (32-34) 05/22/16 06:33 RDW 16.1 % (13.2-15.2) H 05/22/16 06:33 Plt Count 234 K/mm3 (140-440) 05/22/16 06:33 Lymph % (Auto) 23.7 % (13.4-35.0) 05/22/16 06:33 [place] % (Auto) 9.6 % (0.0-7.3) H 05/22/16 06:33 Eos % (Auto) 0.9 % (0.0-4.3) 05/22/16 06:33 Baso % (Auto) 0.9 % (0.0-1.8) 05/22/16 06:33 Lymph # 1.0 K/mm3 (1.2-5.4) L 05/22/16 06:33 [place] # 0.4 K/mm3 (0.0-0.8) 05/22/16 06:33 Eos # 0.0 K/mm3 (0.0-0.4) 05/22/16 06:33 Baso # 0.0 K/mm3 (0.0-0.1) 05/22/16 06:33 Seg Neutrophils % 64.9 % (40.0-70.0) 05/22/16 06:33 Seg Neutrophils # 2.7 K/mm3 (1.8-7.7) 05/22/16 06:33 Sodium 142 mmol/L (137-145) 05/22/16 06:33 Potassium 3.9 mmol/L (3.6-5.0) 05/22/16 06:33 Chloride 103.7 mmol/L (98-107) 05/22/16 06:33 Carbon Dioxide 26 mmol/L (22-30) 05/22/16 06:33 Anion Gap 16 mmol/L 05/22/16 06:33 BUN 10 mg/dL (9-20) 05/22/16 06:33 Creatinine 0.7 mg/dL (0.8-1.5) L 05/22/16 06:33 Estimated GFR > 60 ml/min 05/22/16 06:33 BUN/Creatinine Ratio 14.28 % 05/22/16 06:33 Glucose 91 mg/dL (75-100) 05/22/16 06:33 Calcium 9.0 mg/dL (8.4-10.2) 05/22/16 06:33 Total Creatine Kinase 70 units/L (55-170) 05/21/16 09:41 Troponin T < 0.010 ng/mL (0.00-0.029) 05/21/16 14:31 TSH 25.270 mlU/mL (0.270-4.200) H 05/21/16 09:41 Free T4 0.83 ng/dL (0.76-1.46) 05/22/16 10:14 - Imaging and Cardiology Chest x-ray: image reviewed (no acute process) CT Scan - head: report reviewed MRI - head: report reviewed
[2016-05-22 15:23] LABS: Urine Drugs of Abuse Note Disclamer
[2016-05-22 15:58] LABS: Bilirubin,Urine NEG (Negative); Blood,Urine NEG (Negative); Ketones,Urine NEG (Negative); Leukocyte Esterase,Urine NEG (Negative); Nitrite,Urine NEG (Negative); Protein,Urine <15 mg/dL mg/dL (Negative); Urobilinogen,Urine < 2.0 mg/dL (<2.0)
[2016-05-22 16:41] LABS: RBC,Urine < 1.0 /HPF (0.0-6.0); WBC,Urine < 1.0 /HPF (0.0-6.0)
[2016-05-22] MEDS: LOVENOX SUB-Q SCH (21:53)
[2016-05-23] MEDS: NORCO 7.5/325 PO PRN ×3 (01:48→14:28)
[2016-05-23] MEDS: SYNTHROID PO SCH (05:56)
[2016-05-23] MEDS: DUONEB 0.5 MG-3 MG/3 ML SOLN IH SCH (08:35)
[2016-05-23] MEDS: LYRICA PO SCH ×2 (09:01→22:09)
[2016-05-23] MEDS: K-DUR PO SCH (09:01)
[2016-05-23] MEDS: MS CONTIN ER PO SCH ×2 (09:02→22:08)
[2016-05-23] MEDS: HCTZ PO SCH (09:02)
--- NOTE | 2016-05-23 16:31 | Progress Note ---
Assessment and Plan Assessment and plan: 1. Syncopal episode Syncopal episode followed by seizure activity per family member report Cardiac enzymes within normal limits, EKG with no ischemic changes; echocardiogram obtaine, results pending 2. New-onset seizures Patient with laryngeal cancer, concern for brain metastasis as etiology of seizures CT had obtained and showed no acute abnormality, age-related atrophy MRI brain also obtained and showed no mass, atrophy, softer changes not clearly described EEG ordered Will await neurology evaluation and recommendations Other etiologies ruled out - infection (chest x-ray, UA normal) and other possible etiologies (electrolytes within normal limits; UDS negative except for opiates that he received after being admitted) 3. Hypothyroidism Levothyroxine dose unknown by family TSH elevated, but free T4 within normal limits Start levothyroxine 75 mcg and adjust if needed 4. Hypertension On HCTZ Monitor BP 5. Macrocytic anemia B12 and folate within normal limits 6. Laryngeal carcinoma status post tracheostomy 7. Remote DVT port related 8. DVT prophylaxis Lovenox History Interval history: Doing well, no seizure activity after admitted, no other symptoms Family present Hospitalist Physical - Constitutional Vitals: Temp Pulse Resp BP Pulse Ox 98.2 F 99 H 15 113/76 96 05/23/16 08:49 05/23/16 08:49 05/23/16 09:02 05/23/16 08:49 05/23/16 08:41 General appearance: Present: no acute distress, well-nourished - EENT Eyes: Present: PERRL, EOM intact - Neck Neck: Present: supple, normal ROM, other (trach). Absent: masses or JVD - Respiratory Respiratory effort: normal Respiratory: bilateral: CTA, negative: rales, rhonchi, wheezing - Cardiovascular Rhythm: regular Heart Sounds: Present: S1 & S2. Absent: systolic murmur - Extremities Extremities: no ischemia - Abdominal General gastrointestinal: soft, non-tender, non-distended, normal bowel sounds - Integumentary Integumentary: Present: warm, dry. Absent: jaundice, rash - Psychiatric Psychiatric: cooperative - Neurologic Neurologic: CNII-XII intact, no focal deficits Results - Labs CBC & Chem 7: 05/22/16 06:33 05/22/16 06:33 Labs: Laboratory Last Values WBC 4.1 K/mm3 (4.5-11.0) L 05/22/16 06:33 RBC 3.19 M/mm3 (3.65-5.03) L 05/22/16 06:33 Hgb 10.1 gm/dl (11.8-15.2) L 05/22/16 06:33 Hct 30.7 % (35.5-45.6) L 05/22/16 06:33 MCV 96 fl (84-94) H 05/22/16 06:33 MCH 32 pg (28-32) 05/22/16 06:33 MCHC 33 % (32-34) 05/22/16 06:33 RDW 16.1 % (13.2-15.2) H 05/22/16 06:33 Plt Count 234 K/mm3 (140-440) 05/22/16 06:33 Lymph % (Auto) 23.7 % (13.4-35.0) 05/22/16 06:33 [place] % (Auto) 9.6 % (0.0-7.3) H 05/22/16 06:33 Eos % (Auto) 0.9 % (0.0-4.3) 05/22/16 06:33 Baso % (Auto) 0.9 % (0.0-1.8) 05/22/16 06:33 Lymph # 1.0 K/mm3 (1.2-5.4) L 05/22/16 06:33 [place] # 0.4 K/mm3 (0.0-0.8) 05/22/16 06:33 Eos # 0.0 K/mm3 (0.0-0.4) 05/22/16 06:33 Baso # 0.0 K/mm3 (0.0-0.1) 05/22/16 06:33 Seg Neutrophils % 64.9 % (40.0-70.0) 05/22/16 06:33 Seg Neutrophils # 2.7 K/mm3 (1.8-7.7) 05/22/16 06:33 Sodium 142 mmol/L (137-145) 05/22/16 06:33 Potassium 3.9 mmol/L (3.6-5.0) 05/22/16 06:33 Chloride 103.7 mmol/L (98-107) 05/22/16 06:33 Carbon Dioxide 26 mmol/L (22-30) 05/22/16 06:33 Anion Gap 16 mmol/L 05/22/16 06:33 BUN 10 mg/dL (9-20) 05/22/16 06:33 Creatinine 0.7 mg/dL (0.8-1.5) L 05/22/16 06:33 Estimated GFR > 60 ml/min 05/22/16 06:33 BUN/Creatinine Ratio 14.28 % 05/22/16 06:33 Glucose 91 mg/dL (75-100) 05/22/16 06:33 POC Glucose 83 (70-105) 05/23/16 06:05 Calcium 9.0 mg/dL (8.4-10.2) 05/22/16 06:33 Total Creatine Kinase 70 units/L (55-170) 05/21/16 09:41 Troponin T < 0.010 ng/mL (0.00-0.029) 05/21/16 14:31 Vitamin B12 374.2 pg/mL (211-911) 05/22/16 15:13 Folate 15.87 ng/mL (7.3-26.0) 05/22/16 15:13 TSH 25.270 mlU/mL (0.270-4.200) H 05/21/16 09:41 Free T4 0.83 ng/dL (0.76-1.46) 05/22/16 10:14 Urine Color Straw (Yellow) 05/22/16 15:21 Urine Turbidity Clear (Clear) 05/22/16 15:21 Urine pH 6.0 (5.0-7.0) 05/22/16 15:21 Ur Specific Section 1.008 (1.003-1.030) 05/22/16 15:21 Urine Protein <15 mg/dl mg/dL (Negative) 05/22/16 15:21 Urine Glucose (UA) Neg mg/dL (Negative) 05/22/16 15:21 Urine Ketones Neg mg/dL (Negative) 05/22/16 15:21 Urine Blood Neg (Negative) 05/22/16 15:21 Urine Nitrite Neg (Negative) 05/22/16 15:21 Urine Bilirubin Neg (Negative) 05/22/16 15:21 Urine Urobilinogen < 2.0 mg/dL (<2.0) 05/22/16 15:21 Ur Leukocyte Esterase Neg (Negative) 05/22/16 15:21 Urine WBC (Auto) < 1.0 /HPF (0.0-6.0) 05/22/16 15:21 Urine RBC (Auto) < 1.0 /HPF (0.0-6.0) 05/22/16 15:21 Urine Opiates Screen Presumptive positive 05/22/16 15:21 Urine Methadone Screen Presumptive negative 05/22/16 15:21 Ur Barbiturates Screen Presumptive negative 05/22/16 15:21 Ur Phencyclidine Scrn Presumptive negative 05/22/16 15:21 Ur Amphetamines Screen Presumptive negative 05/22/16 15:21 U Benzodiazepines Scrn Presumptive negative 05/22/16 15:21 Urine Cocaine Screen Presumptive negative 05/22/16 15:21 U Marijuana (THC) Screen Presumptive negative 05/22/16 15:21 Drugs of Abuse Note Disclamer 05/22/16 15:21
[2016-05-23] MEDS: LOVENOX SUB-Q SCH (22:08)
[2016-05-24] MEDS: NORCO 7.5/325 PO PRN ×2 (06:15→13:55)
[2016-05-24] MEDS: SYNTHROID PO SCH (06:15)
[2016-05-24] MEDS: K-DUR PO SCH (10:02)
[2016-05-24] MEDS: MS CONTIN ER PO SCH (10:02)
[2016-05-24] MEDS: HCTZ PO SCH (10:02)
[2016-05-24] MEDS: LYRICA PO SCH (10:02)
--- NOTE | 2016-05-24 12:09 | Consultation ---
History of Present Illness Consult date: 05/24/16 Requesting physician: LEVON CUMMINGS Reason for Consult: syncope Chief complaint: loss of consciousness History of present illness: 50 year old male with hx of laryngeal carcinoma S/p Trach, HTN, Remote hx of DVT , skin graft who presented to the ER on 05/21 after a single episode of loss of consciousness. Pt was walking and felt lightheaded/faint. He then feels he fell and was told he lost consciousness. He was quickly back to consciousness within 1 min but does report he continued to have lightheadedness. There was no convulsion or tongue bite or clear residual deficit. Brother found pt without a pulse that he started doing chest compressions and shaking the patient and eventually the patient appeared to take a deep breath and became more awake. He may have had recurrent events of near loss of consciousness in upright position when assisted by brother but again no clear convulsion or tongue bite. The patient denies any knowledge of the event or any prior event. He complains of headache down the left side of his face, which has been ongoing for several days but improving. Past History Past Medical History: cancer (Throat CA), DVT (secondary to port) Past Surgical History: Other (tracheostomy, peg tube placement, skin graft) Family history: no significant family history Medications and Allergies Allergies Allergy/AdvReac Type Severity Reaction Status Date / Time No Known Allergies Allergy Verified 05/07/16 14:15 Home Medications Medication Instructions Recorded Confirmed Last Taken Type Docusate Sodium [Colace CAP] 100 mg PO BID PRN 10/01/15 05/21/16 04/18/16 History Hydrochlorothiazide [HCTZ] 25 mg PO QDAY 10/01/15 05/21/16 04/18/16 History Oxycodone HCl [Oxycontin] 10 mg PO QID 10/01/15 05/21/16 04/18/16 History Morphine ER [Ms Contin ER] 15 mg PO BID 10/10/15 05/21/16 04/18/16 History Pregabalin [Lyrica] 50 mg PO BID 10/28/15 05/21/16 04/18/16 History HYDROcodone/APAP 7.5-325 [[place] 1 each PO Q6HR PRN #14 tablet 04/18/16 05/21/16 Unknown Rx 7.5/325] ALBUTEROL Inhaler [ProAir HFA 2 puff IH QID PRN #1 inhalation 05/07/16 05/21/16 Unknown Rx Inhaler] Potassium Chloride [K-Dur] 10 meq PO DAILY 05/21/16 05/21/16 Unknown History Active Meds: Active Medications Acetaminophen (Tylenol) 650 mg PO Q4H PRN PRN Reason: Pain MILD(1-3)/Fever >100.5/HERNANDEZ Acetaminophen/Hydrocodone Bitart ([place] 7.5/325) 1 each PO Q6HR PRN PRN Reason: Pain, Moderate (4-6) Last Admin: 05/24/16 06:15 Dose: 1 each Albuterol (Proventil) 2.5 mg IH Q4H PRN PRN Reason: shortness of breath Alprazolam (Xanax) 0.25 mg PO BID PRN PRN Reason: Anxiety Bisacodyl (Dulcolax) 10 mg HI QDAY PRN PRN Reason: Constipation unrelieved by MOM Docusate Sodium (Colace) 100 mg PO BID PRN PRN Reason: Nausea And Vomiting Enoxaparin Sodium (Lovenox) 40 mg SUB-Q QDAY@2200 [facility] Last Admin: 05/23/16 22:08 Dose: 40 mg Hydrochlorothiazide (Hctz) 25 mg PO QDAY [facility] Last Admin: 05/24/16 10:02 Dose: 25 mg Levothyroxine Sodium (Synthroid) 75 mcg PO DAILY@0600 [facility] Last Admin: 05/24/16 06:15 Dose: 75 mcg Lorazepam (Ativan) 1 mg IV Q4H PRN PRN Reason: Seizures Magnesium Hydroxide (Milk Of Magnesia) 30 ml PO Q4H PRN PRN Reason: Constipation Morphine Sulfate (Ms Contin Er) 15 mg PO BID [facility] Last Admin: 05/24/16 10:02 Dose: 15 mg Ondansetron HCl (Zofran) 4 mg IV Q8H PRN PRN Reason: N/V unrelieved by Reglan Potassium Chloride (K-Dur) 10 meq PO DAILY [facility] Last Admin: 05/24/16 10:02 Dose: 10 meq Pregabalin (Lyrica) 50 mg PO BID [facility] Last Admin: 05/24/16 10:02 Dose: 50 mg Review of Systems All systems: negative Neurological: syncope, headaches Physical Examination - Vital Signs Vital Signs: Vital Signs Temp Pulse Resp BP Pulse Ox 97.6 F 52 L 18 83/57 99 05/21/16 05:26 05/21/16 05:26 05/21/16 05:26 05/21/16 05:05/21/16 05:26 - Constitutional General appearance: comfortable - EENT EENT: Present: ATNC, PERRL, mucous membranes moist, hearing intact - Respiratory Respiratory: Present: chest non-tender, normal breath sounds - Cardiovascular Cardiovascular: Present: regular rate Extremities: Present: no peripheral edema bilatateraly, no clubbing, cyanosis, no inflammation, no ischemia or petechiae - Gastrointestinal Gastrointestinal: Present: normoactive bowel sounds, non-distended - Integumentary Integumentary: Present: normal - Neurologic Cranial nerve examination: PERRL, EOMI, VFF, V1/V2/V3 grossly intact, face symmetric, tongue midline, intact, intact shoulder shrug, Intact Vestibulo- ocular r, normal palatal elevation Speech examination: other (speech anarthric but writing/reading normal) Sensorimotor examination: intact Detailed motor examination: full strength in all nickie Motor examination - right side: 5/5: biceps, triceps, wrist flexion, wrist extension, hot stone setter, hip flexors, knee extensors, dorsiflexion, toe extension (EHL) , plantarflexion Motor examination - left side: 5/5: biceps, triceps, wrist flexion, wrist extension, hot stone setter, hip flexors, knee extensors, dorsiflexion, toe extension (EHL) , plantarflexion Detailed sensory examination: intact, light touch, temperature Reflex and gait examination: normal gait Reflexes: 2+: ankle, bicep, knee, tricep - Musculoskeletal Musculoskeletal: Present: no fluid collection, no pain, normal range of motion - Psychiatric Psychiatric: Present: mood/affect appropriate, cooperative Results - Laboratory Findings CBC and BMP: 05/22/16 06:33 05/22/16 06:33 Abnormal Lab Findings: Abnormal Labs 05/22/16 05/22/16 06:33 06:33 WBC 4.1 L RBC 3.19 L Hgb 10.1 L Hct 30.7 L MCV 96 H RDW 16.1 H [place] % (Auto) 9.6 H Lymph # 1.0 L Creatinine 0.7 L - Diagnostic Findings Additional findings: MRI Brain nonacute T2 white matter disease Assessment and Plan 50 year old male with hx of laryngeal carcinoma S/p Trach on Chemo who is a/w at least 1 clear episode of LOC while walking w/ classic premonitory presyncopal syndrome and reported pulselessness. Pt may have had recurrent episodes when assisted to seated position accompanied by rigidity but no clear convulsion or tongue bite or clear residual deficit to suggest post ictal state. Clinical syn appears to be classic for orthostatic syncope. MRI Brain +/ - chronic small vessel disease/nonacute. BPs on arrival markedly hypotensive. Recs: 1. Telemetry bed w/ Q4 hour neuro checks 2. Labs: Serum/Urine Tox, UA/UCx, Electrolytes especially Na, Ca, Mg, and Glucose, TSH, 3. AED therapy: No clear indication for AED therapy 4. Orthostatic vital signs 5. Conservative management e.g. tapering of BP meds, [place] Hose, encourage PO intake, etc 6. With seemingly clear etiology for syncope there is no clear grounds for driving privilege withdrawal 7. We can revisit as needed. Pt neurologically clear for discharge.
--- NOTE | 2016-05-24 13:03 | Discharge Summary ---
Providers - Providers Date of Admission: 05/21/16 11:20 Date of discharge: 05/24/16 Attending physician: ELI HALEY CONSULTS; Neurology Primary care physician: NEUROLOGY EPILEPSY PHYSICIAN Hospitalization Reason for admission: seizure Condition: Stable Pertinent studies: CT head MRI brain ECHO Hospital course: Patient is a 50 years old -[place] male with history of laryngeal cancer status post tracheostomy was brought to the hospital for a possible syncopal episode followed by new onset seizure per family member report witnessed episodes; there were no tonicoclonic movements and no incontinence. CT head and brain MRI obtained to exclude the possibility of brain metastasis; also other causes have been ruled out. Evaluated by neurology considered that no other testing is warranted, there is no indication for AED and he can be safely discharged. Discharge diagnosis: 1. Syncopal episode Syncopal episode followed by seizure activity per family member report Cardiac enzymes within normal limits, EKG with no ischemic changes; echocardiogram normal Questionable; possible vasovagal syncope 2. New-onset seizures ? Patient with laryngeal cancer, concern for brain metastasis as etiology of seizures CT had obtained and showed no acute abnormality, age-related atrophy MRI brain also obtained and showed no mass, atrophy, subtle changes not clearly described EEG also obtained Other etiologies have been ruled out - infection (chest x-ray, UA normal) and other possible etiologies (electrolytes within normal limits; UDS negative except for opiates that he received after being admitted) Evaluated by Neurology and no indication for AED 3. Hypothyroidism TSH elevated, but free T4 within normal limits Continue levothyroxine 4. Hypertension On HCTZ; BP controlled 5. Macrocytic anemia B12 and folate within normal limits 6. Laryngeal carcinoma status post tracheostomy 7. Remote DVT port related Disposition: DISCHARGED TO HOME OR SELFCARE Time spent for discharge: 35 min Core Measure Documentation - Palliative Care Palliative Care/ Comfort Measures: Not Applicable - Core Measures Any of the following diagnoses?: none Exam - Physical Exam Narrative exam: Patient seen and examined; - Constitutional Vitals: Temp Pulse Resp BP Pulse Ox 98.3 F 64 20 120/70 97 05/24/16 08:10 05/24/16 08:10 05/24/16 08:10 05/24/16 08:10 05/24/16 09:35 General appearance: Present: no acute distress, well-nourished - EENT Eyes: Present: PERRL, EOM intact. Absent: scleral icterus, conjunctival injection - Neck Neck: Present: supple, normal ROM, other (trach). Absent: masses or JVD - Respiratory Respiratory effort: normal Respiratory: bilateral: CTA, negative: rales, rhonchi, wheezing - Cardiovascular Rhythm: regular Heart Sounds: Present: S1 & S2. Absent: systolic murmur - Extremities Extremities: no ischemia - Abdominal General gastrointestinal: Present: soft, non-tender, non-distended, normal bowel sounds - Integumentary Integumentary: Present: warm, dry. Absent: jaundice, rash - Musculoskeletal Musculoskeletal: strength equal bilaterally - Psychiatric Psychiatric: cooperative - Neurologic Neurologic: CNII-XII intact, no focal deficits Plan Activity: advance as tolerated Diet: low cholesterol, low salt Follow up with: PRIMARY CARE, [Primary Care Provider] - 3-5 Days Prescriptions: Levothyroxine [Synthroid] 75 mcg PO DAILY@0600 #30 tablet
[2016-05-24 17:54] VITALS: BP 0/0
[2016-05-24] MEDS ORDERED: FLUARIX QUAD 2016-2017(36 MOS+) IM ONE (18:30)
== END 2016-05-24 18:00 | disposition home or self-care (01) | DRG 312 ==
LOC: ED 05:23 → 3A 11:20
PROVIDERS: ADMIT Internal Medicine; ATTEND Internal Medicine
DX: R55 Syncope and collapse (principal); I10 Essential (primary) hypertension; D53.9 Nutritional anemia, unspecified; E03.9 Hypothyroidism, unspecified; Z86.718 Personal history of other venous thrombosis and embolism; Z93.0 Tracheostomy status; Z87.891 Personal history of nicotine dependence; Z83.3 Family history of diabetes mellitus; Z80.9 Family history of malignant neoplasm, unspecified; Z82.49 Family history of ischemic heart disease and other diseases of the circulatory system; Z85.21 Personal history of malignant neoplasm of larynx; R56.9 Unspecified convulsions
CPT/HCPCS: 36415; 70450; 70553; 71010; 80048; 80307; 81001; 82550; 82607; 82747; 82962; 84439; 84443; 84484; 85025; 90686; 93005; 93010; 93306; 94640; 94760; 95819; 96360; A9577; J1650

== ENCOUNTER 2016-08-05 16:41 | Emergency (ER) | payer MEDICAID ==
[2016-08-05 17:50] LABS: Basophils % (Auto) 0.9 % (0.0-1.8); Eosinophils % (Auto) 2.3 % (0.0-4.3); Hematocrit 35.5 % (35.5-45.6); Hemoglobin 11.6 gm/dl (11.8-15.2); Mean Corpuscular HGB Conc 33 % (32-34); Mean Corpuscular Hemoglobin 29 pg (28-32); Mean Corpuscular Volume 90 fl (84-94); Platelet Count 218 K/mm3 (140-440); Red Blood Count 3.94 M/mm3 (3.65-5.03); Red Cell Distribution Width 13.8 % (13.2-15.2); White Blood Count 4.1 K/mm3 (4.5-11.0)
[2016-08-05 18:10] LABS: Anion Gap 17 mmol/L; Blood Urea Nitrogen 13 mg/dL (9-20); Calcium 9.2 mg/dL (8.4-10.2); Carbon Dioxide 28 mmol/L (22-30); Chloride 99.6 mmol/L (98-107); Creatine Kinase 72 units/L (55-170); Creatine Kinase MB 1.1 ng/mL (0.0-4.0); Glucose 87 mg/dL (75-100); Potassium 3.8 mmol/L (3.6-5.0); Sodium 141 mmol/L (137-145)
[2016-08-05 22:57] VITALS: BP 113/74
[2016-08-05] MEDS ORDERED: NORCO 7.5/325 PO ONE (23:01)
[2016-08-05] MEDS ORDERED: ZOFRAN ODT PO ONE (23:01)
--- NOTE | 2016-08-05 23:05 | Emergency Department Report ---
HPI - General Chief Complaint: Chest Pain Time Seen by Provider: 08/05/16 21:03 - HPI HPI: The patient is a 50-year-old male presents for evaluation of chest pain. The patient reports left-sided chest pain, radiating into the left arm, mild in severity, sharp in quality, exacerbated with movement of the left arm at the shoulder joint, present since onset 1 night ago, approximately 24 hours prior to my evaluation. The patient denies fever, trauma to the chest, left shoulder, left arm, neck pain, parasthesias, dyspnea, cough, hemoptysis, palpitations, dizziness, syncope, unilateral leg swelling, calf muscle pain. Patient also denies cocaine or other stimulant use, history of DVT or PE, recent immobilization, or history of cancer. 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 Removal of peg tube,. skin grafts, removed from left wrist and right inner thigh - Social History Smoking Status: Never Smoker Substance Use Type: None - Medications Home Medications: Home Medications Medication Instructions Recorded Confirmed Last Taken Type Docusate Sodium [Colace CAP] 100 mg PO BID PRN 10/01/15 05/21/16 04/18/16 History Hydrochlorothiazide [HCTZ] 25 mg PO QDAY 10/01/15 05/21/16 04/18/16 History Oxycodone HCl [Oxycontin] 10 mg PO QID 10/01/15 05/21/16 04/18/16 History Morphine ER [Ms Contin ER] 15 mg PO BID 10/10/15 05/21/16 04/18/16 History Pregabalin [Lyrica] 50 mg PO BID 10/28/15 05/21/16 04/18/16 History HYDROcodone/APAP 7.5-325 [[place] 1 each PO Q6HR PRN #14 tablet 04/18/16 05/21/16 Unknown Rx 7.5-325 mg TAB] ALBUTEROL Inhaler [ProAir HFA 2 puff IH QID PRN #1 inhalation 05/07/16 05/21/16 Unknown Rx Inhaler] Potassium Chloride [K-Dur] 10 meq PO DAILY 05/21/16 05/21/16 Unknown History Levothyroxine [Synthroid] 75 mcg PO DAILY@0600 #30 tablet 05/24/16 Unknown Rx HYDROcodone/APAP 7.5-325 [[place] 1 each PO Q8HR PRN #12 tablet 08/05/16 Unknown Rx 7.5-325 mg TAB] ED Review of Systems ROS: Stated complaint: ARMS PAIN Other details as noted in HPI Constitutional: denies: fever ENT: denies: throat or neck pain Respiratory: denies: cough, shortness of breath Cardiovascular: reports chest pain Endocrine: denies unexplained weight loss or gain Gastrointestinal: denies: abdominal pain, nausea Genitourinary: denies: dysuria Musculoskeletal: denies: leg swelling Skin: denies: rash Neurological: denies: headache Hematological/Lymphatic: denies: easy bleeding or easy bruising Psych: denies sadness or hopelessness Physical Exam - Physical Exam Vital Signs: Vital Signs 08/05/16 08/05/16 08/05/16 17:09 20:49 20:51 Temperature 98.4 F Pulse Rate 68 55 L 55 L Respiratory 16 17 19 Rate Blood Pressure 124/82 O2 Sat by Pulse 97 99 99 Oximetry 08/05/16 08/05/16 08/05/16 20:55 20:56 21:00 Temperature Pulse Rate 56 L 53 L Respiratory 15 18 15 Rate Blood Pressure 122/78 O2 Sat by Pulse 98 99 Oximetry 08/05/16 08/05/16 08/05/16 21:01 21:05 21:11 Temperature Pulse Rate 71 54 L 53 L Respiratory 13 16 Rate Blood Pressure 122/78 122/78 O2 Sat by Pulse 99 98 Oximetry 08/05/16 08/05/16 08/05/16 21:15 21:21 21:25 Temperature Pulse Rate 57 L 58 L 55 L Respiratory 15 18 15 Rate Blood Pressure 122/78 122/78 122/78 O2 Sat by Pulse 99 97 95 Oximetry 08/05/16 08/05/16 08/05/16 21:30 21:35 21:41 Temperature Pulse Rate 58 L 60 71 Respiratory 12 16 15 Rate Blood Pressure 116/71 116/71 116/71 O2 Sat by Pulse 97 97 97 Oximetry 08/05/16 08/05/16 08/05/16 21:45 21:51 21:55 Temperature Pulse Rate 62 59 L 60 Respiratory 22 16 16 Rate Blood Pressure 116/71 116/71 116/71 O2 Sat by Pulse 98 99 97 Oximetry 08/05/16 08/05/16 08/05/16 22:01 22:05 22:11 Temperature Pulse Rate 94 H 60 59 L Respiratory 23 16 16 Rate Blood Pressure 116/71 116/71 116/71 O2 Sat by Pulse 89 96 97 Oximetry 08/05/16 08/05/16 08/05/16 22:15 22:21 22:25 Temperature Pulse Rate 57 L 58 L 57 L Respiratory 17 17 16 Rate Blood Pressure 116/71 116/71 116/71 O2 Sat by Pulse 96 95 96 Oximetry 08/05/16 08/05/16 08/05/16 22:30 22:35 22:41 Temperature Pulse Rate 57 L 59 L 61 Respiratory 14 16 14 Rate Blood Pressure 113/74 113/74 113/74 O2 Sat by Pulse 96 96 96 Oximetry 08/05/16 08/05/16 22:45 22:51 Temperature Pulse Rate 62 62 Respiratory 16 19 Rate Blood Pressure 113/74 113/74 O2 Sat by Pulse 96 97 Oximetry Physical Exam: General: well-nourished, well-developed, no acute distress Head: Normocephalic, atraumatic Eyes: normal sclera ENT: Mucous membranes are pink and moist Neck: trachea midline, neck supple, No neck stiffness, no cervical adenopathy Respiratory: Breath sounds equal bilaterally, no wheezing, rales, or rhonchi Cardio: S1 and S2 present, no murmurs, rubs, gallops, capillary refill is brisk Abdomen: Normoactive bowel sounds, soft abdomen, no rigidity, no guarding or rebound tenderness Chest WALL/Back: tenderness to palpation of the left chest wall present, no crepitus, swelling, fluctuance, ecchymosis or redness, no CVA tenderness with percussion Musc: Full passive range of motion to the left shoulder intact Skin: No rash Neuro: no facial drooping, normal speech Psych: Normal affect ED Course Vital Signs 08/05/16 08/05/16 08/05/16 17:09 20:49 20:51 Temperature 98.4 F Pulse Rate 68 55 L 55 L Respiratory 16 17 19 Rate Blood Pressure 124/82 O2 Sat by Pulse 97 99 99 Oximetry 08/05/16 08/05/16 08/05/16 20:55 20:56 21:00 Temperature Pulse Rate 56 L 53 L Respiratory 15 18 15 Rate Blood Pressure 122/78 O2 Sat by Pulse 98 99 Oximetry 08/05/16 08/05/16 08/05/16 21:01 21:05 21:11 Temperature Pulse Rate 71 54 L 53 L Respiratory 13 16 Rate Blood Pressure 122/78 122/78 O2 Sat by Pulse 99 98 Oximetry 08/05/16 08/05/16 08/05/16 21:15 21:21 21:25 Temperature Pulse Rate 57 L 58 L 55 L Respiratory 15 18 15 Rate Blood Pressure 122/78 122/78 122/78 O2 Sat by Pulse 99 97 95 Oximetry 08/05/16 08/05/16 08/05/16 21:30 21:35 21:41 Temperature Pulse Rate 58 L 60 71 Respiratory 12 16 15 Rate Blood Pressure 116/71 116/71 116/71 O2 Sat by Pulse 97 97 97 Oximetry 08/05/16 08/05/16 08/05/16 21:45 21:51 21:55 Temperature Pulse Rate 62 59 L 60 Respiratory 22 16 16 Rate Blood Pressure 116/71 116/71 116/71 O2 Sat by Pulse 98 99 97 Oximetry 08/05/16 08/05/16 08/05/16 22:01 22:05 22:11 Temperature Pulse Rate 94 H 60 59 L Respiratory 23 16 16 Rate Blood Pressure 116/71 116/71 116/71 O2 Sat by Pulse 89 96 97 Oximetry 08/05/16 08/05/16 08/05/16 22:15 22:21 22:25 Temperature Pulse Rate 57 L 58 L 57 L Respiratory 17 17 16 Rate Blood Pressure 116/71 116/71 116/71 O2 Sat by Pulse 96 95 96 Oximetry 08/05/16 08/05/16 08/05/16 22:30 22:35 22:41 Temperature Pulse Rate 57 L 59 L 61 Respiratory 14 16 14 Rate Blood Pressure 113/74 113/74 113/74 O2 Sat by Pulse 96 96 96 Oximetry 08/05/16 08/05/16 22:45 22:51 Temperature Pulse Rate 62 62 Respiratory 16 19 Rate Blood Pressure 113/74 113/74 O2 Sat by Pulse 96 97 Oximetry ED Medical Decision Making - Lab Data Result diagrams: 08/05/16 17:35 08/05/16 17:35 - Medical Decision Making The patient was seen and examined by myself. The patient is placed on a cardiac monitor technician and continuous pulse ox. On initial evaluation, the patient was found to be in no distress. EKG was negative for findings suggestive of acute cardiac infarct. Labs and imaging are obtained. The patient is given a tablet of [place] for his pain. Chest x-ray is negative for pneumothorax, focal consolidation, pulmonary vascular congestion, pleural effusion, or other obvious acute cardiopulmonary disease process. Lab results were non-concerning including levels of troponin, WBC, hemoglobin, hematocrit, electrolytes, renal function. The patient was reevaluated and reported that their symptoms were markedly improved. As the patient has a AZAR risk score less than 2, and a well 's score less than 2, the patient is at low risk of ACS or pulmonary emboli etiology of their symptoms. The patient is stable for discharge with outpatient follow-up. The patient is given follow-up and return instructions. The patient expressed understanding and agreed with the plan. The patient is discharged in stable condition. Critical care attestation.: If time is entered above; I have spent that time in minutes in the direct care of this critically ill patient, excluding procedure time. ED Disposition Clinical Impression: Acute chest pain Disposition: DISCHARGED TO HOME OR SELFCARE Is pt being admited?: No Does the pt Need Aspirin: No Condition: Stable Instructions: Chest Pain (ED), Shoulder Sprain (ED) Prescriptions: HYDROcodone/APAP 7.5-325 [[place] 7.5-325 mg TAB] 1 each PO Q8HR PRN #12 tablet PRN Reason: Pain Referrals: PRIMARY CARE, [Primary Care Provider] - 3-5 Days Time of Disposition: 23:02
--- NOTE | 2016-08-06 07:24 | XRay Report ---
CHEST 2 VIEWS INDICATION: Chest pain. Prior laryngectomy for throat cancer. COMPARISON: 05/21/2016 FINDINGS: PA and lateral chest radiographs now demonstrate mild bibasilar horizontal atelectasis. Otherwise clear lungs. No pleural effusions or CHF. Normal cardiomediastinal silhouette. Multiple surgical josefa about the lower neck/upper chest again present. An upper abdominal surgical clip anteriorly may also be seen. Intact bones. CONCLUSION: Mild bibasilar atelectasis and few other incidental findings, as above. Thank you for the opportunity to participate in this patient's care.
== END 2016-08-05 23:39 | disposition home or self-care (01) ==
LOC: ED 16:41
DX: R07.89 Other chest pain (principal); I10 Essential (primary) hypertension; Z86.718 Personal history of other venous thrombosis and embolism; Z98.890 Other specified postprocedural states
CPT/HCPCS: 36415; 71020; 80048; 82550; 82553; 84484; 85025; 93005; 93010; 99285; Q0162

== ENCOUNTER 2016-12-21 13:14 | Emergency (ER) | payer MEDICAID ==
--- NOTE | 2016-12-21 13:29 | Emergency Department Report ---
Chief Complaint: Dyspnea/Respdistress Stated Complaint: SOB/DIZZINESS W/TRACH Time Seen by Provider: 12/21/16 13:25 - HPI History of Present Illness: pt c/o feeling hot and dizzy. pt has a hx of laryngeal cancer and trach - ROS Review of Systems: + dizziness - chest pain + decrease po intake - Exam Vital Signs: Vital Signs 12/21/16 13:23 Temperature 98.3 F Pulse Rate 81 Respiratory 18 Rate Blood Pressure 128/85 O2 Sat by Pulse 99 Oximetry Physical Exam: pt is alert, with trach steady gait MSE screening note: Focused history and physical exam performed. Due to findings the following was ordered: ekg, labs, xr ED Disposition for MSE Condition: Stable
--- NOTE | 2016-12-21 14:00 | XRay Report ---
ROUTINE CHEST, TWO VIEWS: HISTORY: Fever, dizziness. The trachea, heart, mediastinal contour, lung le and bony thorax are unremarkable. Multiple surgical clips near the thoracic inlet are noted. No significant change since 08/05/16. IMPRESSION: No acute cardiopulmonary process.
[2016-12-21 15:21] LABS: Basophils % (Auto) 0.8 % (0.0-1.8); Eosinophils % (Auto) 1.4 % (0.0-4.3); Hematocrit 41.1 % (35.5-45.6); Hemoglobin 13.1 gm/dl (11.8-15.2); Mean Corpuscular HGB Conc 32 % (32-34); Mean Corpuscular Hemoglobin 28 pg (28-32); Mean Corpuscular Volume 87 fl (84-94); Platelet Count 264 K/mm3 (140-440); Red Cell Distribution Width 13.3 % (13.2-15.2); White Blood Count 5.9 K/mm3 (4.5-11.0)
[2016-12-22 06:02] LABS: Alanine Aminotransferase 6 units/L (7-56); Albumin 4.5 g/dL (3.9-5); Albumin/Globulin Ratio 1.8 %; Alkaline Phosphatase 70 units/L (35-129); Anion Gap 29 mmol/L; BUN/Creatinine Ratio 15.71; Blood Urea Nitrogen 11 mg/dL (9-20); Calcium 9.9 mg/dL (8.4-10.2); Carbon Dioxide 20 mmol/L (22-30); Chloride 95.8 mmol/L (98-107); Glucose 66 mg/dL (75-100); Potassium 4.6 mmol/L (3.6-5.0); Sodium 140 mmol/L (137-145)
[2016-12-22] MEDS: TYLENOL PO ONE (06:04)
--- NOTE | 2016-12-22 06:33 | Emergency Department Report ---
HPI - General Chief Complaint: Dyspnea/Respdistress Time Seen by Provider: 12/21/16 13:25 - HPI HPI: Patient came to er with sob, headache, facial discomfort. patient has been taking meds at home without relief. patient states headache, is frontal, without radiation or neck pain. patient has had similar headache in the past. patient states that symptoms have been there for about 3 days but worse today. patient denies any fever, chills, thick secretions from trach, nausea or vomiting. Patient has a history of throat cancer secondary to tobacco abuse and currently has a tracheostomy and therefore is mostly nonverbal but does communicate by mouthing words and with hand gestures. Patient has not taken anything for symptoms prior to presentation. No history of VT, CVA, PE/DVT. 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 Removal of peg tube,. skin grafts, removed from left wrist and right inner thigh - Social History Smoking Status: Former Smoker Substance Use Type: Prescribed - Medications Home Medications: Home Medications Medication Instructions Recorded Confirmed Last Taken Type Docusate Sodium [Colace CAP] 100 mg PO BID 10/01/15 12/22/16 04/18/16 History Hydrochlorothiazide [HCTZ] 25 mg PO QDAY 10/01/15 12/22/16 04/18/16 History Oxycodone HCl [Oxycontin] 10 mg PO QID PRN 10/01/15 12/22/16 04/18/16 History Pregabalin [Lyrica] 50 mg PO BID 10/28/15 12/22/16 04/18/16 History Potassium Chloride [K-Dur] 20 meq PO DAILY 05/21/16 12/22/16 Unknown History Albuterol Sulfate [Albuterol 0.63% 0.63 mg IH Q4H PRN 12/22/16 12/22/16 Unknown History NEBS] Aspirin [Aspirin TAB] 325 mg PO QDAY 12/22/16 12/22/16 Unknown History Fluticasone/Salmeterol [Advair 1 puff IH BID 12/22/16 12/22/16 Unknown History Diskus 250-50 mcg] Ibuprofen [Motrin 800 MG tab] 800 mg PO Q8HR PRN #45 tablet 12/22/16 Unknown Rx Levothyroxine [Synthroid] 125 mcg PO QAM 12/22/16 12/22/16 Unknown History Magnesium Oxide [Mag-Ox] 400 mg PO QDAY 12/22/16 12/22/16 Unknown History Morphine Sulfate [Ms Contin] 120 mg PO Q8H PRN 12/22/16 12/22/16 Unknown History Pantoprazole [Protonix TAB] 40 mg PO QDAY #30 tablet 12/22/16 Unknown Rx Simvastatin [Zocor TAB] 40 mg PO QHS 12/22/16 12/22/16 Unknown History ED Review of Systems ROS: Stated complaint: SOB/DIZZINESS W/TRACH Other details as noted in HPI Comment: All other systems reviewed and negative Constitutional: no symptoms reported Musculoskeletal: as per HPI Neurological: headache Physical Exam - Physical Exam Vital Signs: Vital Signs 12/21/16 12/22/16 12/22/16 13:23 01:03 01:26 Temperature 98.3 F Pulse Rate 81 60 Respiratory 18 16 Rate Blood Pressure 128/85 128/92 Blood Pressure [Left] O2 Sat by Pulse 99 99 99 Oximetry 12/22/16 12/22/16 05:26 06:04 Temperature Pulse Rate 67 Respiratory 16 15 Rate Blood Pressure Blood Pressure 136/80 [Left] O2 Sat by Pulse 100 Oximetry Physical Exam: GENERAL: The patient is well-developed well-nourished. Patient does not appear in any acute distress. HEENT: Normocephalic. Atraumatic. Extraocular motions are intact. Patient has moist mucous membranes. Pupils equal reactive to light bilaterally. NECK: Supple. Patient has a tracheostomy and collar in place. There is some chronic scarring to the bilateral neck that appears consistent with previous radiation therapy. CHEST/LUNGS: Clear to auscultation. There is no respiratory distress noted. HEART/CARDIOVASCULAR: Regular. There is no tachycardia. There is no gallop rub or murmur. ABDOMEN: Abdomen is soft, nontender. Patient has normal bowel sounds. There is no abdominal distention. SKIN: There is no rash. There is no edema. There is no diaphoresis. NEURO: The patient is awake, alert, and oriented. Patient is nonverbal secondary to his tracheostomy but is responsive. The patient is cooperative. The patient has no focal neurologic deficits. The patient has normal speech and gait. MUSCULOSKELETAL: There is no tenderness or deformity. There is no limitation range of motion. There is no evidence of acute injury. ED Course Vital Signs 12/21/16 12/22/16 12/22/16 13:23 01:03 01:26 Temperature 98.3 F Pulse Rate 81 60 Respiratory 18 16 Rate Blood Pressure 128/85 128/92 Blood Pressure [Left] O2 Sat by Pulse 99 99 99 Oximetry 12/22/16 12/22/16 05:26 06:04 Temperature Pulse Rate 67 Respiratory 16 15 Rate Blood Pressure Blood Pressure 136/80 [Left] O2 Sat by Pulse 100 Oximetry - Reevaluation(s) Reevaluation #1: 12/22/16 06:40 patient has been in er for about 17 hrs prior to me seeing him. he appears stable and lab results were discussed with him at length. He was given tylenol for his headache. ED Medical Decision Making - Lab Data Result diagrams: 12/21/16 15:05 12/21/16 15:05 Critical care attestation.: If time is entered above; I have spent that time in minutes in the direct care of this critically ill patient, excluding procedure time. ED Disposition Clinical Impression: Gastritis Qualifiers: Gastritis type: other gastritis Chronicity: chronic Gastritis bleeding: without bleeding Qualified Code(s): K29.50 - Unspecified chronic gastritis without bleeding Headache Qualifiers: Headache type: tension-type Headache chronicity pattern: acute headache Intractability: not intractable Qualified Code(s): G44.209 - Tension-type headache, unspecified, not intractable Disposition: DC-01 TO HOME OR SELFCARE Is pt being admited?: No Does the pt Need Aspirin: No Condition: Stable Instructions: Gastritis (ED), Tension Headache (ED) Prescriptions: Ibuprofen [Motrin 800 MG tab] 800 mg PO Q8HR PRN #45 tablet PRN Reason: Pain Pantoprazole [Protonix TAB] 40 mg PO QDAY #30 tablet Referrals: NHAN HOFFMAN MD [Primary Care Provider] - 3-5 Days PRITESH MENON MD [Staff Physician] - 3-5 Days
[2016-12-22 06:41] VITALS: BP 134/80
== END 2016-12-22 06:55 | disposition home or self-care (01) ==
LOC: ED 13:14
DX: K29.50 Unspecified chronic gastritis without bleeding (principal); G44.209 Tension-type headache, unspecified, not intractable; I10 Essential (primary) hypertension; I82.402 Acute embolism and thrombosis of unspecified deep veins of left lower extremity; Z87.891 Personal history of nicotine dependence
CPT/HCPCS: 36415; 71020; 80053; 82962; 83690; 84443; 85025; 93005; 93010

== ENCOUNTER 2017-01-02 22:31 | Emergency (ER) | payer MEDICAID ==
[2017-01-03] MEDS ORDERED: XYLOCAINE 1% 20 mL INFILTRATI ONE (01:58)
[2017-01-03] MEDS ORDERED: XYLOCAINE 2% INFILTRATI ONE ×2 (02:02→02:13)
[2017-01-03] MEDS ORDERED: LET TOPICAL TP ONE ×2 (02:03→02:13)
[2017-01-03 02:52] VITALS: BP 144/89
[2017-01-03] MEDS ORDERED: MOTRIN PO ONE ×2 (02:55→03:03)
--- NOTE | 2017-01-03 02:55 | Emergency Department Report ---
- General Chief complaint: Earache Stated complaint: LFT EAR DISCOMFORT Time Seen by Provider: 01/03/17 01:24 Source: patient Mode of arrival: Ambulatory Limitations: Other - History of Present Illness Initial comments: 51M PMH trach p/w c/o feeling of insect in his left ear x 5 hours. States he feels it moving in his ear complaint: foreign body (insect left ear) Onset/Timin -: hour(s) Severity: moderate Severity scale (0 -10): 4 Quality: constant Consistency: constant Worsens with: none Context: none Treatments Prior to Arrival: none - Related Data Home Medications Medication Instructions Recorded Confirmed Last Taken RX: Docusate Sodium [Colace CAP] 100 mg PO BID 10/01/15 12/22/16 04/18/16 RX: Hydrochlorothiazide [HCTZ] 25 mg PO QDAY 10/01/15 12/22/16 04/18/16 RX: Oxycodone HCl [Oxycontin] 10 mg PO QID PRN 10/01/15 12/22/16 04/18/16 RX: Pregabalin [Lyrica] 50 mg PO BID 10/28/15 12/22/16 04/18/16 RX: Potassium Chloride [K-Dur] 20 meq PO DAILY 05/21/16 12/22/16 Unknown Albuterol Sulfate [Albuterol 0.63% 0.63 mg IH Q4H PRN 12/22/16 12/22/16 Unknown NEBS] Aspirin [Aspirin TAB] 325 mg PO QDAY 12/22/16 12/22/16 Unknown Fluticasone/Salmeterol [Advair 1 puff IH BID 12/22/16 12/22/16 Unknown Diskus 250-50 mcg] Levothyroxine [Synthroid] 125 mcg PO QAM 12/22/16 12/22/16 Unknown Magnesium Oxide [Mag-Ox] 400 mg PO QDAY 12/22/16 12/22/16 Unknown Morphine Sulfate [Ms Contin] 120 mg PO Q8H PRN 12/22/16 12/22/16 Unknown Simvastatin [Zocor TAB] 40 mg PO QHS 12/22/16 12/22/16 Unknown Previous Rx's Medication Instructions Recorded Last Taken Type RX: Ibuprofen [Motrin 800 MG tab] 800 mg PO Q8HR PRN #45 tablet 12/22/16 Unknown Rx RX: Pantoprazole [Protonix TAB] 40 mg PO QDAY #30 tablet 12/22/16 Unknown Rx Ibuprofen [Motrin] 800 mg PO Q8HR PRN #15 tablet 01/03/17 Unknown Rx Neomy/Polymyx B/Hc (Otic) Soln 4 drops OTIC TID #1 bottle 01/03/17 Unknown Rx [Cortisporin (Otic) Soln] Allergies Allergy/AdvReac Type Severity Reaction Status Date / Time No Known Allergies Allergy Verified 05/07/16 14:15 Abscess Boil HPI - HPI Chief Complaint: Earache Stated Complaint: LFT EAR DISCOMFORT Time Seen by Provider: 01/03/17 01:24 Home Medications: Home Medications Medication Instructions Recorded Confirmed Last Taken RX: Docusate Sodium [Colace CAP] 100 mg PO BID 10/01/15 12/22/16 04/18/16 RX: Hydrochlorothiazide [HCTZ] 25 mg PO QDAY 10/01/15 12/22/16 04/18/16 RX: Oxycodone HCl [Oxycontin] 10 mg PO QID PRN 10/01/15 12/22/16 04/18/16 RX: Pregabalin [Lyrica] 50 mg PO BID 10/28/15 12/22/16 04/18/16 RX: Potassium Chloride [K-Dur] 20 meq PO DAILY 05/21/16 12/22/16 Unknown Albuterol Sulfate [Albuterol 0.63% 0.63 mg IH Q4H PRN 12/22/16 12/22/16 Unknown NEBS] Aspirin [Aspirin TAB] 325 mg PO QDAY 12/22/16 12/22/16 Unknown Fluticasone/Salmeterol [Advair 1 puff IH BID 12/22/16 12/22/16 Unknown Diskus 250-50 mcg] Levothyroxine [Synthroid] 125 mcg PO QAM 12/22/16 12/22/16 Unknown Magnesium Oxide [Mag-Ox] 400 mg PO QDAY 12/22/16 12/22/16 Unknown Morphine Sulfate [Ms Contin] 120 mg PO Q8H PRN 12/22/16 12/22/16 Unknown Simvastatin [Zocor TAB] 40 mg PO QHS 12/22/16 12/22/16 Unknown Previous Rx's Medication Instructions Recorded Last Taken Type RX: Ibuprofen [Motrin 800 MG tab] 800 mg PO Q8HR PRN #45 tablet 12/22/16 Unknown Rx RX: Pantoprazole [Protonix TAB] 40 mg PO QDAY #30 tablet 12/22/16 Unknown Rx Ibuprofen [Motrin] 800 mg PO Q8HR PRN #15 tablet 01/03/17 Unknown Rx Neomy/Polymyx B/Hc (Otic) Soln 4 drops OTIC TID #1 bottle 01/03/17 Unknown Rx [Cortisporin (Otic) Soln] Allergies/Adverse Reactions: Allergies Allergy/AdvReac Type Severity Reaction Status Date / Time No Known Allergies Allergy Verified 05/07/16 14:15 ED Review of Systems ROS: Stated complaint: LFT EAR DISCOMFORT Other details as noted in HPI Constitutional: denies: chills, fever Eyes: denies: eye pain, eye discharge, vision change ENT: ear pain (left ear discomfort). denies: throat pain Respiratory: denies: cough, shortness of breath, wheezing Cardiovascular: denies: chest pain, palpitations Endocrine: no symptoms reported Gastrointestinal: denies: abdominal pain, nausea, diarrhea Genitourinary: denies: urgency, dysuria Musculoskeletal: denies: back pain, joint swelling, arthralgia Skin: denies: rash, lesions Neurological: denies: headache, weakness, paresthesias Psychiatric: denies: anxiety, depression Hematological/Lymphatic: denies: easy bleeding, easy bruising ED Past Medical Hx - Past Medical History Previous Medical History?: Yes Hx Hypertension: Yes Hx Congestive Heart Failure: No Hx Diabetes: No Hx Deep Vein Thrombosis: Yes (left upper extremity secondary to a port) Hx Asthma: No Hx COPD: No Additional medical history: throat cancer, trach placed 2012; 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 Removal of peg tube,. skin grafts, removed from left wrist and right inner thigh - Social History Smoking Status: Former Smoker Substance Use Type: None - Medications Home Medications: Home Medications Medication Instructions Recorded Confirmed Last Taken Type RX: Docusate Sodium [Colace CAP] 100 mg PO BID 10/01/15 12/22/16 04/18/16 History RX: Hydrochlorothiazide [HCTZ] 25 mg PO QDAY 10/01/15 12/22/16 04/18/16 History RX: Oxycodone HCl [Oxycontin] 10 mg PO QID PRN 10/01/15 12/22/16 04/18/16 History RX: Pregabalin [Lyrica] 50 mg PO BID 10/28/15 12/22/16 04/18/16 History RX: Potassium Chloride [K-Dur] 20 meq PO DAILY 05/21/16 12/22/16 Unknown History Albuterol Sulfate [Albuterol 0.63% 0.63 mg IH Q4H PRN 12/22/16 12/22/16 Unknown History NEBS] Aspirin [Aspirin TAB] 325 mg PO QDAY 12/22/16 12/22/16 Unknown History Fluticasone/Salmeterol [Advair 1 puff IH BID 12/22/16 12/22/16 Unknown History Diskus 250-50 mcg] Levothyroxine [Synthroid] 125 mcg PO QAM 12/22/16 12/22/16 Unknown History Magnesium Oxide [Mag-Ox] 400 mg PO QDAY 12/22/16 12/22/16 Unknown History Morphine Sulfate [Ms Contin] 120 mg PO Q8H PRN 12/22/16 12/22/16 Unknown History RX: Ibuprofen [Motrin 800 MG tab] 800 mg PO Q8HR PRN #45 tablet 12/22/16 Unknown Rx RX: Pantoprazole [Protonix TAB] 40 mg PO QDAY #30 tablet 12/22/16 Unknown Rx Simvastatin [Zocor TAB] 40 mg PO QHS 12/22/16 12/22/16 Unknown History Ibuprofen [Motrin] 800 mg PO Q8HR PRN #15 tablet 01/03/17 Unknown Rx Neomy/Polymyx B/Hc (Otic) Soln 4 drops OTIC TID #1 bottle 01/03/17 Unknown Rx [Cortisporin (Otic) Soln] ED Physical Exam - General Limitations: Other General appearance: alert, in no apparent distress - Head Head exam: Present: atraumatic, normocephalic - Eye Eye exam: Present: normal appearance - ENT ENT exam: Present: mucous membranes moist - Expanded ENT Exam Expanded TM/Canal exam: Erythema: Left TM (insect visible in left ear canal) - Neck Neck exam: Present: normal inspection - Respiratory Respiratory exam: Present: normal lung sounds bilaterally. Absent: respiratory distress - Cardiovascular Cardiovascular Exam: Present: regular rate, normal rhythm. Absent: systolic murmur, diastolic murmur, rubs, gallop - GI/Abdominal GI/Abdominal exam: Present: soft, normal bowel sounds - Rectal Rectal exam: Present: deferred - Extremities Exam Extremities exam: Present: normal inspection - Back Exam Back exam: Present: normal inspection - Neurological Exam Neurological exam: Present: alert, oriented X3 - Psychiatric Psychiatric exam: Present: normal affect, normal mood - Skin Skin exam: Present: warm, dry, intact, normal color. Absent: rash ED Course Vital Signs 01/02/17 01/03/17 01/03/17 23:48 02:51 03:19 Temperature 98.7 F Pulse Rate 86 80 Respiratory 18 18 18 Rate Blood Pressure 127/81 Blood Pressure 144/89 [Left] O2 Sat by Pulse 98 99 Oximetry - Foreign Body Removal Ear Location: ear canal (L) Foreign Body Suspected: insect (earwig bug) If Insect Suspected: ear canal instilled with Foreign Body Removed: yes Foreign Body Removal Technique: forceps Tympanic Membrane Intact: Yes Patient Tolerated Procedure: no complications ED Medical Decision Making - Medical Decision Making a/p: insect removal left ear canal 1- removal successful, insect intact, post removal examination shows some canal erythema, will give ABX drops, TM is intact on exam 2- f/u with PMD, motrin prn for pain Critical care attestation.: If time is entered above; I have spent that time in minutes in the direct care of this critically ill patient, excluding procedure time. ED Disposition Clinical Impression: Foreign body in left ear Qualifiers: Encounter type: initial encounter Qualified Code(s): T16.2XXA - Foreign body in left ear, initial encounter Disposition: TO HOME OR SELFCARE Is pt being admited?: No Does the pt Need Aspirin: No Condition: Stable Instructions: Ear Foreign Body (ED) Prescriptions: Ibuprofen [Motrin] 800 mg PO Q8HR PRN #15 tablet PRN Reason: Pain Neomy/Polymyx B/Hc (Otic) Soln [Cortisporin (Otic) Soln] 4 drops OTIC TID #1 bottle Referrals: HEIDI ALANIS MD [Staff Physician] - 3-5 Days Forms: Work/School Release Form(ED)
[2017-01-03] MEDS ORDERED: MOTRIN ONE (03:07)
== END 2017-01-03 03:20 | disposition home or self-care (01) ==
LOC: ED 22:31
DX: T16.2XXA Foreign body in left ear, initial encounter (principal); I10 Essential (primary) hypertension; Z86.718 Personal history of other venous thrombosis and embolism; Z87.891 Personal history of nicotine dependence; Z79.82 Long term (current) use of aspirin; W45.8XXA Other foreign body or object entering through skin, initial encounter; Y93.89 Activity, other specified; Y92.89 Other specified places as the place of occurrence of the external cause; Y99.8 Other external cause status

== ENCOUNTER 2017-01-06 04:26 | Emergency (ER) | payer MEDICAID ==
[2017-01-06 05:29] LABS: Anion Gap 19 mmol/L; Blood Urea Nitrogen 9 mg/dL (9-20); Carbon Dioxide 26 mmol/L (22-30); Chloride 100.3 mmol/L (98-107); Glucose 87 mg/dL (75-100); Potassium 3.9 mmol/L (3.6-5.0); Sodium 141 mmol/L (137-145)
[2017-01-06 05:44] LABS: Basophils % (Auto) 0.5 % (0.0-1.8); Hematocrit 34.4 % (35.5-45.6); Hemoglobin 11.6 gm/dl (11.8-15.2); Mean Corpuscular HGB Conc 34 % (32-34); Mean Corpuscular Hemoglobin 29 pg (28-32); Mean Corpuscular Volume 85 fl (84-94); Platelet Count 255 K/mm3 (140-440); Red Blood Count 4.06 M/mm3 (3.65-5.03); Red Cell Distribution Width 13.1 % (13.2-15.2); White Blood Count 6.3 K/mm3 (4.5-11.0)
--- NOTE | 2017-01-06 07:30 | XRay Report ---
ROUTINE CHEST, TWO VIEWS: HISTORY: Cough. The trachea, heart, mediastinal contour, lung le and bony thorax are unremarkable. Numerous surgical clips are noted in the neck, correlate with history. No significant change since 12/21/16. IMPRESSION: No acute cardiopulmonary process identified.
[2017-01-06] MEDS ORDERED: MORPHINE IV ONE (13:46)
[2017-01-06] MEDS ORDERED: NORCO 5/325 PO ONE (13:53)
--- NOTE | 2017-01-06 13:53 | Emergency Department Report ---
ED General Adult HPI - General Chief complaint: Dyspnea/Respdistress Stated complaint: YOSVANY Time Seen by Provider: 01/06/17 13:27 Source: patient, EMS Mode of arrival: Ambulatory Limitations: No Limitations - History of Present Illness Initial comments: Patient is a 51-year-old male past medical history of laryngeal cancer status post tracheostomy who presents with bilateral shoulder pain. Patient states that short pain started 5 hours ago. Patient is nonverbal and is communicating via written text. Patient states the pains an 8 out of 10 moving the shoulders makes it worse nothing makes it better. He states that he has some slight shortness of breath but that's typical for him. His pain is an achy type of pain. And radiates bilaterally through his shoulders. Patient also states that he's been feeling cold and sweaty. No nausea or fever or chest pain. Severity scale (0 -10): 10 - Related Data Home Medications Medication Instructions Recorded Confirmed Last Taken Docusate Sodium [Colace CAP] 100 mg PO BID 10/01/15 12/22/16 04/18/16 Hydrochlorothiazide [HCTZ] 25 mg PO QDAY 10/01/15 12/22/16 04/18/16 Oxycodone HCl [Oxycontin] 10 mg PO QID PRN 10/01/15 12/22/16 04/18/16 Potassium Chloride [K-Dur] 20 meq PO DAILY 05/21/16 12/22/16 Unknown Albuterol Sulfate [Albuterol 0.63% 0.63 mg IH Q4H PRN 12/22/16 12/22/16 Unknown NEBS] Aspirin [Aspirin TAB] 325 mg PO QDAY 12/22/16 12/22/16 Unknown Fluticasone/Salmeterol [Advair 1 puff IH BID 12/22/16 12/22/16 Unknown Diskus 250-50 mcg] Levothyroxine [Synthroid] 125 mcg PO QAM 12/22/16 12/22/16 Unknown Magnesium Oxide [Mag-Ox] 400 mg PO QDAY 12/22/16 12/22/16 Unknown Morphine Sulfate [Ms Contin] 120 mg PO Q8H PRN 12/22/16 12/22/16 Unknown Simvastatin [Zocor TAB] 40 mg PO QHS 12/22/16 12/22/16 Unknown Previous Rx's Medication Instructions Recorded Last Taken Type Ibuprofen [Motrin 800 MG tab] 800 mg PO Q8HR PRN #45 tablet 12/22/16 Unknown Rx Pantoprazole [Protonix TAB] 40 mg PO QDAY #30 tablet 12/22/16 Unknown Rx Ibuprofen [Motrin] 800 mg PO Q8HR PRN #15 tablet 01/03/17 Unknown Rx Neomy/Polymyx B/Hc (Otic) Soln 4 drops OTIC TID #1 bottle 01/03/17 Unknown Rx [Cortisporin (Otic) Soln] HYDROcodone/APAP 10-325 [[place] 1 each PO Q6HR PRN #15 tablet 01/06/17 Unknown Rx 10/325] Pregabalin [Lyrica] 50 mg PO BID #30 capsule 01/06/17 Unknown Rx Allergies Allergy/AdvReac Type Severity Reaction Status Date / Time No Known Allergies Allergy Verified 05/07/16 14:15 ED Review of Systems ROS: Stated complaint: YOSVANY Other details as noted in HPI Constitutional: denies: chills, fever Eyes: denies: eye pain, eye discharge, vision change ENT: denies: ear pain, throat pain Respiratory: shortness of breath. denies: cough, wheezing Cardiovascular: denies: chest pain, palpitations Endocrine: no symptoms reported Gastrointestinal: denies: abdominal pain, nausea, diarrhea Genitourinary: denies: urgency, dysuria Musculoskeletal: other (shoulder pain). 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 Removal of peg tube,. skin grafts, removed from left wrist and right inner thigh - Social History Smoking Status: Never Smoker Substance Use Type: None - Medications Home Medications: Home Medications Medication Instructions Recorded Confirmed Last Taken Type Docusate Sodium [Colace CAP] 100 mg PO BID 10/01/15 12/22/16 04/18/16 History Hydrochlorothiazide [HCTZ] 25 mg PO QDAY 10/01/15 12/22/16 04/18/16 History Oxycodone HCl [Oxycontin] 10 mg PO QID PRN 10/01/15 12/22/16 04/18/16 History Potassium Chloride [K-Dur] 20 meq PO DAILY 05/21/16 12/22/16 Unknown History Albuterol Sulfate [Albuterol 0.63% 0.63 mg IH Q4H PRN 12/22/16 12/22/16 Unknown History NEBS] Aspirin [Aspirin TAB] 325 mg PO QDAY 12/22/16 12/22/16 Unknown History Fluticasone/Salmeterol [Advair 1 puff IH BID 12/22/16 12/22/16 Unknown History Diskus 250-50 mcg] Ibuprofen [Motrin 800 MG tab] 800 mg PO Q8HR PRN #45 tablet 12/22/16 Unknown Rx Levothyroxine [Synthroid] 125 mcg PO QAM 12/22/16 12/22/16 Unknown History Magnesium Oxide [Mag-Ox] 400 mg PO QDAY 12/22/16 12/22/16 Unknown History Morphine Sulfate [Ms Contin] 120 mg PO Q8H PRN 12/22/16 12/22/16 Unknown History Pantoprazole [Protonix TAB] 40 mg PO QDAY #30 tablet 12/22/16 Unknown Rx Simvastatin [Zocor TAB] 40 mg PO QHS 12/22/16 12/22/16 Unknown History Ibuprofen [Motrin] 800 mg PO Q8HR PRN #15 tablet 01/03/17 Unknown Rx Neomy/Polymyx B/Hc (Otic) Soln 4 drops OTIC TID #1 bottle 01/03/17 Unknown Rx [Cortisporin (Otic) Soln] HYDROcodone/APAP 10-325 [[place] 1 each PO Q6HR PRN #15 tablet 01/06/17 Unknown Rx 10/325] Pregabalin [Lyrica] 50 mg PO BID #30 capsule 01/06/17 Unknown Rx ED Physical Exam - General Limitations: No Limitations General appearance: alert, in no apparent distress - Head Head exam: Present: atraumatic, normocephalic - Eye Eye exam: Present: normal appearance - ENT ENT exam: Present: mucous membranes moist - Neck Neck exam: Present: other (tracheostomy ) - Respiratory Respiratory exam: Present: normal lung sounds bilaterally. Absent: respiratory distress - Cardiovascular Cardiovascular Exam: Present: regular rate, normal rhythm. Absent: systolic murmur, diastolic murmur, rubs, gallop - GI/Abdominal GI/Abdominal exam: Present: soft, normal bowel sounds - Rectal Rectal exam: Present: deferred - Extremities Exam Extremities exam: Present: normal inspection - Back Exam Back exam: Present: normal inspection - Neurological Exam Neurological exam: Present: alert, oriented X3 - Psychiatric Psychiatric exam: Present: normal affect, normal mood - Skin Skin exam: Present: warm, dry, intact, normal color. Absent: rash ED Course Vital Signs 01/06/17 01/06/17 04:39 11:30 Temperature 98.6 F 98.5 F Pulse Rate 72 64 Respiratory 18 20 Rate Blood Pressure 119/82 Blood Pressure 131/90 [Left] O2 Sat by Pulse 99 100 Oximetry - Reevaluation(s) Reevaluation #1: 01/06/17 16:13 Patient is feeling better after after IV pain medication I will send patient home ED Medical Decision Making - Lab Data Result diagrams: 01/06/17 04:47 01/06/17 04:47 Lab Results 01/06/17 01/06/17 01/06/17 Range/Units 04:38 04:47 04:47 WBC 6.3 (4.5-11.0) K/mm3 RBC 4.06 (3.65-5.03) M/mm3 Hgb 11.6 L (11.8-15.2) gm/dl Hct 34.4 L (35.5-45.6) % MCV 85 (84-94) fl MCH 29 (28-32) pg MCHC 34 (32-34) % RDW 13.1 L (13.2-15.2) % Plt Count 255 (140-440) K/mm3 Lymph % (Auto) 11.7 L (13.4-35.0) % [place] % (Auto) 6.2 (0.0-7.3) % Eos % (Auto) 1.0 (0.0-4.3) % Baso % (Auto) 0.5 (0.0-1.8) % Lymph # 0.7 L (1.2-5.4) K/mm3 [place] # 0.4 (0.0-0.8) K/mm3 Eos # 0.1 (0.0-0.4) K/mm3 Baso # 0.0 (0.0-0.1) K/mm3 Seg Neutrophils % 80.6 H (40.0-70.0) % Seg Neutrophils # 5.1 (1.8-7.7) K/mm3 Sodium 141 (137-145) mmol/L Potassium 3.9 (3.6-5.0) mmol/L Chloride 100.3 (98-107) mmol/L Carbon Dioxide 26 (22-30) mmol/L Anion Gap 19 mmol/L BUN 9 (9-20) mg/dL Creatinine 0.6 L (0.8-1.5) mg/dL Estimated GFR > 60 ml/min BUN/Creatinine Ratio 15.00 % Glucose 87 (75-100) mg/dL POC Glucose 91 (70-105) Calcium 10.0 (8.4-10.2) mg/dL - Radiology Data Radiology results: report reviewed Chest x-ray: No acute cardiopulmonary disease - Medical Decision Making Chief medical diagnosis: Shoulder sprain Differential medical diagnosis: Pneumonia, electrolyte abnormality I'll give patient IV pain medication, CBC, CMP, chest x-ray Patient states he does not want a breathing treatment and he feels that he feels good to go after that IV pain medication. He is asking for refills on his Lyrica and his [place]. Patient given discharge instructions and additional verbal discharge instructions were given. He agrees with discharge. Critical care attestation.: If time is entered above; I have spent that time in minutes in the direct care of this critically ill patient, excluding procedure time. ED Disposition Clinical Impression: SOB (shortness of breath), Laryngeal cancer, Tracheostomy care Shoulder pain, bilateral Qualifiers: Chronicity: acute Qualified Code(s): M25.511 - Pain in right shoulder; M25.512 - Pain in left shoulder Disposition: - TO HOME OR SELFCARE Is pt being admited?: No Does the pt Need Aspirin: No Condition: Stable Instructions: Tracheostomy Care (ED), Shoulder Sprain (ED) Prescriptions: HYDROcodone/APAP 10-325 [[place] 10/325] 1 each PO Q6HR PRN #15 tablet PRN Reason: Pain Pregabalin [Lyrica] 50 mg PO BID #30 capsule Referrals: REED JOHNSON MD [Primary Care Provider] - 3-5 Days
[2017-01-06 16:53] VITALS: BP 126/78
== END 2017-01-06 17:35 | disposition home or self-care (01) ==
LOC: ED 04:26
DX: M25.511 Pain in right shoulder (principal); R06.02 Shortness of breath; C32.9 Malignant neoplasm of larynx, unspecified; I10 Essential (primary) hypertension
CPT/HCPCS: 36415; 71020; 80048; 82962; 85025; 96374; 99284; J2270

== ENCOUNTER 2017-06-03 14:24 | Emergency (ER) | payer MEDICAID ==
[2017-06-03 15:15] LABS: Basophils # (Auto) 0.1 K/mm3 (0.0-0.1); Basophils % (Auto) 1.3 % (0.0-1.8); Eosinophils # (Auto) 0.2 K/mm3 (0.0-0.4); Eosinophils % (Auto) 2.6 % (0.0-4.3); Hematocrit 40.8 % (35.5-45.6); Hemoglobin 13.2 gm/dl (11.8-15.2); Lymphocytes # (Auto) 1.4 K/mm3 (1.2-5.4); Lymphocytes % (Auto) 23.4 % (13.4-35.0); Mean Corpuscular HGB Conc 32 % (32-34); Mean Corpuscular Hemoglobin 28 pg (28-32); Mean Corpuscular Volume 87 fl (84-94); Monocytes # (Auto) 0.4 K/mm3 (0.0-0.8); Monocytes % (Auto) 7.6 % (0.0-7.3); Platelet Count 279 K/mm3 (140-440); Red Blood Count 4.68 M/mm3 (3.65-5.03); Red Cell Distribution Width 12.9 % (13.2-15.2)
[2017-06-03 15:29] LABS: Alanine Aminotransferase 12 units/L (7-56); Albumin 4.4 g/dL (3.9-5); BUN/Creatinine Ratio 20; Blood Urea Nitrogen 10 mg/dL (9-20); Calcium 9.5 mg/dL (8.4-10.2); Hemolysis Index 10; Lipase 11 units/L (13-60)
[2017-06-03 15:32] LABS: INR 0.83 (0.87-1.13)
[2017-06-03 15:33] LABS: Partial Thromboplastin Time 37.8 Sec. (24.2-36.6)
--- NOTE | 2017-06-03 16:03 | Emergency Department Report ---
Blank Doc - Documentation Documentation: Patient is a 51-year-old -[place] male whose presenting with a GI bleed times 2:02 days. Patient states he has some mild crampy l
[2017-06-03] MEDS ORDERED: K-DUR PO ONE (17:53)
--- NOTE | 2017-06-03 17:53 | Emergency Department Report ---
ED GI Bleed HPI - General Chief complaint: GI Bleed Stated complaint: GIB Time Seen by Provider: 06/03/17 15:43 Source: patient Mode of arrival: Ambulatory Limitations: Other - History of Present Illness Initial comments: This is a 51 y.o. male presents with bloody stools for 2 days. Patient reports 2 episodes. He is currently receiving chemotherapy for throat cancer. Recent tracheostomy, used written verbalization. Patient states he went for treatment and had to have potassium replaced because chemotherapy is causing depletion. He is having abdominal pain intermittently in lower abdomen. Denies constipation, hemorrhoids, or nausea/vomiting. MD complaint: blood streaked stool -: days(s) (2) Location: periumbilical Radiation: none Severity scale (0 -10): 5 Quality: cramping Consistency: intermittent Improves with: none Worsens with: none Associated Symptoms: abdominal pain (periumbilical pain) Treatments Prior to Arrival: OTC meds (prescribed medication) - Related Data Home Medications Medication Instructions Recorded Confirmed Last Taken Docusate Sodium [Colace CAP] 100 mg PO BID 10/01/15 12/22/16 04/18/16 Hydrochlorothiazide [HCTZ] 25 mg PO QDAY 10/01/15 12/22/16 04/18/16 Oxycodone HCl [Oxycontin] 10 mg PO QID PRN 10/01/15 12/22/16 04/18/16 Potassium Chloride [K-Dur] 20 meq PO DAILY 05/21/16 12/22/16 Unknown Albuterol Sulfate [Albuterol 0.63% 0.63 mg IH Q4H PRN 12/22/16 12/22/16 Unknown NEBS] Aspirin [Aspirin TAB] 325 mg PO QDAY 12/22/16 12/22/16 Unknown Fluticasone/Salmeterol [Advair 1 puff IH BID 12/22/16 12/22/16 Unknown Diskus 250-50 mcg] Levothyroxine [Synthroid] 125 mcg PO QAM 12/22/16 12/22/16 Unknown Magnesium Oxide [Mag-Ox] 400 mg PO QDAY 12/22/16 12/22/16 Unknown Morphine Sulfate [Ms Contin] 120 mg PO Q8H PRN 12/22/16 12/22/16 Unknown Simvastatin [Zocor TAB] 40 mg PO QHS 12/22/16 12/22/16 Unknown Previous Rx's Medication Instructions Recorded Last Taken Type Ibuprofen [Motrin 800 MG tab] 800 mg PO Q8HR PRN #45 tablet 12/22/16 Unknown Rx Pantoprazole [Protonix TAB] 40 mg PO QDAY #30 tablet 12/22/16 Unknown Rx Ibuprofen [Motrin] 800 mg PO Q8HR PRN #15 tablet 01/03/17 Unknown Rx Neomy/Polymyx B/Hc (Otic) Soln 4 drops OTIC TID #1 bottle 01/03/17 Unknown Rx [Cortisporin (Otic) Soln] HYDROcodone/APAP 10-325 [[place] 1 each PO Q6HR PRN #15 tablet 01/06/17 Unknown Rx 10/325] Pregabalin [Lyrica] 50 mg PO BID #30 capsule 01/06/17 Unknown Rx Allergies Allergy/AdvReac Type Severity Reaction Status Date / Time No Known Allergies Allergy Verified 06/03/17 14:29 ED Review of Systems ROS: Stated complaint: GIB Other details as noted in HPI Constitutional: denies: chills, fever Respiratory: denies: cough, shortness of breath, wheezing Cardiovascular: denies: chest pain, palpitations Gastrointestinal: abdominal pain (periumbilical), hematochezia (2 times). denies: nausea, diarrhea Neurological: denies: headache, weakness, paresthesias ED Past Medical Hx - Past Medical History Hx Hypertension: Yes Hx Congestive Heart Failure: No Hx Diabetes: No Hx Deep Vein Thrombosis: Yes (left upper extremity secondary to a port) Hx Asthma: No Hx COPD: No Additional medical history: throat cancer, trach placed 2012; 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 Removal of peg tube,. skin grafts, removed from left wrist and right inner thigh - Social History Smoking Status: Never Smoker Substance Use Type: None - Medications Home Medications: Home Medications Medication Instructions Recorded Confirmed Last Taken Type Docusate Sodium [Colace CAP] 100 mg PO BID 10/01/15 12/22/16 04/18/16 History Hydrochlorothiazide [HCTZ] 25 mg PO QDAY 10/01/15 12/22/16 04/18/16 History Oxycodone HCl [Oxycontin] 10 mg PO QID PRN 10/01/15 12/22/16 04/18/16 History Potassium Chloride [K-Dur] 20 meq PO DAILY 05/21/16 12/22/16 Unknown History Albuterol Sulfate [Albuterol 0.63% 0.63 mg IH Q4H PRN 12/22/16 12/22/16 Unknown History NEBS] Aspirin [Aspirin TAB] 325 mg PO QDAY 12/22/16 12/22/16 Unknown History Fluticasone/Salmeterol [Advair 1 puff IH BID 12/22/16 12/22/16 Unknown History Diskus 250-50 mcg] Ibuprofen [Motrin 800 MG tab] 800 mg PO Q8HR PRN #45 tablet 12/22/16 Unknown Rx Levothyroxine [Synthroid] 125 mcg PO QAM 12/22/16 12/22/16 Unknown History Magnesium Oxide [Mag-Ox] 400 mg PO QDAY 12/22/16 12/22/16 Unknown History Morphine Sulfate [Ms Contin] 120 mg PO Q8H PRN 12/22/16 12/22/16 Unknown History Pantoprazole [Protonix TAB] 40 mg PO QDAY #30 tablet 12/22/16 Unknown Rx Simvastatin [Zocor TAB] 40 mg PO QHS 12/22/16 12/22/16 Unknown History Ibuprofen [Motrin] 800 mg PO Q8HR PRN #15 tablet 01/03/17 Unknown Rx Neomy/Polymyx B/Hc (Otic) Soln 4 drops OTIC TID #1 bottle 01/03/17 Unknown Rx [Cortisporin (Otic) Soln] HYDROcodone/APAP 10-325 [[place] 1 each PO Q6HR PRN #15 tablet 01/06/17 Unknown Rx 10/325] Pregabalin [Lyrica] 50 mg PO BID #30 capsule 01/06/17 Unknown Rx ED Physical Exam - General Limitations: Other General appearance: alert, in no apparent distress - Respiratory Respiratory exam: Present: normal lung sounds bilaterally. Absent: respiratory distress - Cardiovascular Cardiovascular Exam: Present: regular rate, normal rhythm. Absent: systolic murmur, diastolic murmur, rubs, gallop - GI/Abdominal GI/Abdominal exam: Present: soft, tenderness (at umbilical on palpation), normal bowel sounds. Absent: distended, guarding, rebound, rigid, organomegaly , mass - Rectal Rectal exam: Present: deferred - Neurological Exam Neurological exam: Present: alert, oriented X3, normal gait - Skin Skin exam: Present: warm, dry, intact, normal color. Absent: rash ED Course Vital Signs 06/03/17 14:29 Temperature 98.2 F Pulse Rate 96 H Respiratory 18 Rate Blood Pressure 139/90 O2 Sat by Pulse 100 Oximetry ED Medical Decision Making - Lab Data Result diagrams: 06/03/17 14:47 06/03/17 14:47 - Radiology Data Radiology results: report reviewed, image reviewed IMPRESSION: 1. no acute intra-abdominal process noted. No etiology for gastrointestinal hemorrhage is seen. 2. Common bile duct is mildly dilated without definite etiology. 3. Left adrenal mass which should be further evaluated with dedicated adrenal CT. 4. High-density material layering in the dependent stomach. This is probably related to prior oral contrast administration or oral ingestion of calcium (TUMS). - Medical Decision Making 51 y.o. male presents with abdominal pain and hematochezia for 2 days. Currently receiving chemotherapy. Received treatment 06/01/2017. Patient examined by me and in no distress. Vitals stable. EKG read and obtained by Peter Elizondo and NS. CT of abdomen and pelvis obtained and read by radiologist. Patient informed of left adrenal mass, which require dedicated adrenal CT. Obtained CBC, CMP, PT, and PTT/INR. Potassium 3.4 and replaced with klor-con 40 mEq po once in ER. Referred to gastroenterology for outpatient CT of adrenal. No prescriptions started. Discharged home. Critical care attestation.: If time is entered above; I have spent that time in minutes in the direct care of this critically ill patient, excluding procedure time. ED Disposition Clinical Impression: Bloody stools, Adrenal mass, left Disposition: DC-01 TO HOME OR SELFCARE Is pt being admited?: No Does the pt Need Aspirin: No Condition: Stable Instructions: Laxative, Stool Softeners (By mouth), High Fiber Diet (ED) Additional Instructions: Follow up with Gastroenterology for CT of adrenal. Referrals: LUNA AGRAWAL MD [Staff Physician] - 3-5 Days CRISTIANA CHERRY MD [Staff Physician] - 3-5 Days Time of Disposition: 21:47 Print Language: YORUBA
[2017-06-03] MEDS ORDERED: NACL ONE (19:03)
--- NOTE | 2017-06-03 20:47 | Cat Scan Report ---
FINAL REPORT EXAM: CT ABDOMEN PELVIS W CON HISTORY: GI bleed TECHNIQUE: Standard enhanced CT of the abdomen and pelvis. Coronal and sagittal reconstruction was also performed. Delayed imaging through the kidneys and bladder is and obtained. Contrast: Intravenous contrast was given. PRIORS: None. FINDINGS: Within the abdomen, the liver, spleen, pancreas, gallbladder, adrenal glands, and kidneys are unremarkable. The common bile duct measures 8.9 mm in diameter which is abnormal for the patient's age. However, no obstructing mass or calculus is noted. The gallbladder is not distended. No intrahepatic biliary dilatation is noted. There is a 2.6 x 2.2 cm well-defined mass in the left adrenal gland. This partially enhances. Differential is in broad. This should be further evaluated with dedicated adrenal CT. High-density material layers in the stomach, probably due to prior oral contrast or oral ingestion of calcium (TUMS). No evidence for retroperitoneal or pelvic lymphadenopathy is seen. Moderate stool is present throughout the colon. The bowel loops have normal caliber. No soft tissue mass, fluid collection, inflammatory change, or free air is seen within the abdomen or pelvis. The appendix is normal. Mild calcification of the aorta is seen. Within the pelvis, the bladder is collapsed. The prostate is normal. No evidence for mass or lymphadenopathy is seen in the pelvis. Images through the upper abdomen include the lung bases which are expanded and clear. Bony structures show no focal abnormalities and are intact. IMPRESSION: 1. no acute intra-abdominal process noted. No etiology for gastrointestinal hemorrhage is seen. 2. Common bile duct is mildly dilated without definite etiology. 3. Left adrenal mass which should be further evaluated with dedicated adrenal CT. 4. High-density material layering in the dependent stomach. This is probably related to prior oral contrast administration or oral ingestion of calcium (TUMS).
[2017-06-03 22:03] VITALS: BP 129/84
== END 2017-06-03 22:06 | disposition home or self-care (01) ==
LOC: ED 14:24
DX: K92.1 Melena (principal); E27.8 Other specified disorders of adrenal gland; I10 Essential (primary) hypertension
CPT/HCPCS: 36415; 74177; 80053; 83690; 85025; 85610; 85730; 86850; 86900; 86901; 93005; 93010; 99284; Q9967

== ENCOUNTER 2017-10-20 07:23 | Emergency (ER) | payer MEDICAID ==
[2017-10-20 07:48] VITALS: BP 100/72
[2017-10-20 08:18] LABS: Basophils % (Auto) 0.7 % (0.0-1.8); Eosinophils # (Auto) 0.1 K/mm3 (0.0-0.4); Eosinophils % (Auto) 1.8 % (0.0-4.3); Hematocrit 39.5 % (35.5-45.6); Hemoglobin 13.1 gm/dl (11.8-15.2); Lymphocytes # (Auto) 0.8 K/mm3 (1.2-5.4); Lymphocytes % (Auto) 12.6 % (13.4-35.0); Mean Corpuscular HGB Conc 33 % (32-34); Mean Corpuscular Hemoglobin 29 pg (28-32); Mean Corpuscular Volume 88 fl (84-94); Monocytes # (Auto) 0.5 K/mm3 (0.0-0.8); Monocytes % (Auto) 8.4 % (0.0-7.3); Platelet Count 272 K/mm3 (140-440); Red Cell Distribution Width 13.2 % (13.2-15.2)
[2017-10-20 08:48] LABS: Alanine Aminotransferase 9 units/L (7-56); BUN/Creatinine Ratio 20; Blood Urea Nitrogen 10 mg/dL (9-20); Calcium 9.3 mg/dL (8.4-10.2); Hemolysis Index 12
[2017-10-20] MEDS ORDERED: XYLOCAINE 2%/ EPI 1:200,000 INFILTRATI ONE (11:37)
[2017-10-20] MEDS ORDERED: TRIPLE ANTIBIOTIC TP ONE (11:38)
--- NOTE | 2017-10-20 11:42 | Emergency Department Report ---
ED Head Trauma HPI - General Chief complaint: Wound/Laceration Stated complaint: LAC. TO HEAD/FALL Time Seen by Provider: 10/20/17 11:28 Source: patient Mode of arrival: Ambulatory Limitations: No Limitations - History of Present Illness Initial comments: 52-year-old female past medical history past medical history DVT COPD hypertension throat cancer trach placed 2013 presents with complaint of laceration to anterior forehead. Patient states that at 7 AM he got up to go to the bathroom and he felt slightly faint and fell and hit his head on the ground. Patient is fully lucid is able to communicate although he has difficulty with speech secondary to his trach. Patient is audible however. Patient also uses phone to text message to communicate. Patient is ambulatory. Denies any neck pain. Visible 3-4 cm laceration horizontally across forehead. MD Complaint: head injury, head pain -: This morning Mechanism of Injury: mechanical fall Location: frontal Loss of Consciousness: no Previous Trauma to this Area: Yes Other Injuries: laceration Associated Symptoms: denies other symptoms - Related Data Home Medications Medication Instructions Recorded Confirmed Last Taken Docusate Sodium [Colace CAP] 100 mg PO BID 10/01/15 12/22/16 04/18/16 Hydrochlorothiazide [HCTZ] 25 mg PO QDAY 10/01/15 12/22/16 04/18/16 Oxycodone HCl [Oxycontin] 10 mg PO QID PRN 10/01/15 12/22/16 04/18/16 Potassium Chloride [K-Dur] 20 meq PO DAILY 05/21/16 12/22/16 Unknown Albuterol Sulfate [Albuterol 0.63% 0.63 mg IH Q4H PRN 12/22/16 12/22/16 Unknown NEBS] Aspirin [Aspirin TAB] 325 mg PO QDAY 12/22/16 12/22/16 Unknown Fluticasone/Salmeterol [Advair 1 puff IH BID 12/22/16 12/22/16 Unknown Diskus 250-50 mcg] Levothyroxine [Synthroid] 125 mcg PO QAM 12/22/16 12/22/16 Unknown Magnesium Oxide [Mag-Ox] 400 mg PO QDAY 12/22/16 12/22/16 Unknown Morphine Sulfate [Ms Contin] 120 mg PO Q8H PRN 12/22/16 12/22/16 Unknown Simvastatin [Zocor TAB] 40 mg PO QHS 12/22/16 12/22/16 Unknown Previous Rx's Medication Instructions Recorded Last Taken Type Ibuprofen [Motrin 800 MG tab] 800 mg PO Q8HR PRN #45 tablet 12/22/16 Unknown Rx Pantoprazole [Protonix TAB] 40 mg PO QDAY #30 tablet 12/22/16 Unknown Rx Ibuprofen [Motrin] 800 mg PO Q8HR PRN #15 tablet 01/03/17 Unknown Rx Neomy/Polymyx B/Hc (Otic) Soln 4 drops OTIC TID #1 bottle 01/03/17 Unknown Rx [Cortisporin (Otic) Soln] HYDROcodone/APAP 10-325 [[place] 1 each PO Q6HR PRN #15 tablet 01/06/17 Unknown Rx 10/325] Pregabalin [Lyrica] 50 mg PO BID #30 capsule 01/06/17 Unknown Rx Acetaminophen [Acetaminophen TAB] 500 mg PO Q6HR PRN #20 tablet 10/20/17 Unknown Rx Allergies/Adverse reactions: Allergies Allergy/AdvReac Type Severity Reaction Status Date / Time No Known Allergies Allergy Verified 10/20/17 07:43 ED Review of Systems ROS: Stated complaint: LAC. TO HEAD/FALL Other details as noted in HPI Constitutional: denies: chills, fever Eyes: denies: eye pain, eye discharge, vision change ENT: as per HPI. denies: ear pain, throat pain Respiratory: denies: cough, shortness of breath, wheezing Cardiovascular: denies: chest pain, palpitations Endocrine: no symptoms reported Gastrointestinal: denies: abdominal pain, nausea, diarrhea Genitourinary: denies: urgency, dysuria Musculoskeletal: denies: back pain, joint swelling, arthralgia Skin: denies: rash, lesions Neurological: denies: headache, weakness, paresthesias Psychiatric: denies: anxiety, depression Hematological/Lymphatic: denies: easy bleeding, easy bruising ED Past Medical Hx - Past Medical History Hx Hypertension: Yes Hx Congestive Heart Failure: No Hx Diabetes: No Hx Deep Vein Thrombosis: Yes (left upper extremity secondary to a port) Hx Asthma: No Hx COPD: No Additional medical history: throat cancer, trach placed 2012; 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 Removal of peg tube,. skin grafts, removed from left wrist and right inner thigh - Social History Smoking Status: Former Smoker Substance Use Type: None - Medications Home Medications: Home Medications Medication Instructions Recorded Confirmed Last Taken Type Docusate Sodium [Colace CAP] 100 mg PO BID 10/01/15 12/22/16 04/18/16 History Hydrochlorothiazide [HCTZ] 25 mg PO QDAY 10/01/15 12/22/16 04/18/16 History Oxycodone HCl [Oxycontin] 10 mg PO QID PRN 10/01/15 12/22/16 04/18/16 History Potassium Chloride [K-Dur] 20 meq PO DAILY 05/21/16 12/22/16 Unknown History Albuterol Sulfate [Albuterol 0.63% 0.63 mg IH Q4H PRN 12/22/16 12/22/16 Unknown History NEBS] Aspirin [Aspirin TAB] 325 mg PO QDAY 12/22/16 12/22/16 Unknown History Fluticasone/Salmeterol [Advair 1 puff IH BID 12/22/16 12/22/16 Unknown History Diskus 250-50 mcg] Ibuprofen [Motrin 800 MG tab] 800 mg PO Q8HR PRN #45 tablet 12/22/16 Unknown Rx Levothyroxine [Synthroid] 125 mcg PO QAM 12/22/16 12/22/16 Unknown History Magnesium Oxide [Mag-Ox] 400 mg PO QDAY 12/22/16 12/22/16 Unknown History Morphine Sulfate [Ms Contin] 120 mg PO Q8H PRN 12/22/16 12/22/16 Unknown History Pantoprazole [Protonix TAB] 40 mg PO QDAY #30 tablet 12/22/16 Unknown Rx Simvastatin [Zocor TAB] 40 mg PO QHS 12/22/16 12/22/16 Unknown History Ibuprofen [Motrin] 800 mg PO Q8HR PRN #15 tablet 01/03/17 Unknown Rx Neomy/Polymyx B/Hc (Otic) Soln 4 drops OTIC TID #1 bottle 01/03/17 Unknown Rx [Cortisporin (Otic) Soln] HYDROcodone/APAP 10-325 [[place] 1 each PO Q6HR PRN #15 tablet 01/06/17 Unknown Rx 10/325] Pregabalin [Lyrica] 50 mg PO BID #30 capsule 01/06/17 Unknown Rx Acetaminophen [Acetaminophen TAB] 500 mg PO Q6HR PRN #20 tablet 10/20/17 Unknown Rx ED Physical Exam - General Limitations: No Limitations General appearance: alert, in no apparent distress - Head Head exam: Present: normocephalic - Expanded Head Exam Expanded Head exam: Present: laceration 1 - Horizontal laceration here 4cm not bleeding actively - Eye Eye exam: Present: normal appearance - ENT ENT exam: Present: mucous membranes moist, other (patient has a tracheostomy site) - Neck Neck exam: Present: normal inspection - Respiratory Respiratory exam: Present: normal lung sounds bilaterally. Absent: respiratory distress - Cardiovascular Cardiovascular Exam: Present: regular rate, normal rhythm. Absent: systolic murmur, diastolic murmur, rubs, gallop - GI/Abdominal GI/Abdominal exam: Present: soft, normal bowel sounds - Rectal Rectal exam: Present: deferred - Extremities Exam Extremities exam: Present: normal inspection - Back Exam Back exam: Present: normal inspection - Neurological Exam Neurological exam: Present: alert, oriented X3 - Psychiatric Psychiatric exam: Present: normal affect, normal mood - Skin Skin exam: Present: warm, dry, intact, normal color. Absent: rash ED Course Vital Signs 10/20/17 07:43 Temperature 98.7 F Pulse Rate 81 Respiratory 18 Rate Blood Pressure 100/72 O2 Sat by Pulse 100 Oximetry - Laceration /Wound Repair Anterior Face Wound Location: face Wound Length (cm): 4 Wound's Depth, Shape: superficial, linear Wound Explored: clean Irrigated w/ Saline (ccs): 1,000 Betadine Prep?: Yes Anesthesia: Lidocaine w/ Epi Volume Anesthetic (ccs): 4 Wound Debrided: minimal Wound Repaired With: sutures Suture Size/Type: 5:0, nylon Number of Sutures: 5 Layer Closure?: No Progress: Local anesthesia achieved with lidocaine with epinephrine mixture. Wound irrigated with saline. Approximation achieved using nylon sutures. Good wound closure achieved. Procedure tolerated well with minimal bleeding. Covered with antibiotic ointment and Band-Aid afterward. - Lab Data Result diagrams: 10/20/17 07:57 10/20/17 07:57 Lab Results 10/20/17 10/20/17 10/20/17 Range/Units 07:57 07:57 08:09 WBC 6.1 (4.5-11.0) K/mm3 RBC 4.50 (3.65-5.03) M/mm3 Hgb 13.1 (11.8-15.2) gm/dl Hct 39.5 (35.5-45.6) % MCV 88 (84-94) fl MCH 29 (28-32) pg MCHC 33 (32-34) % RDW 13.2 (13.2-15.2) % Plt Count 272 (140-440) K/mm3 Lymph % (Auto) 12.6 L (13.4-35.0) % Mcdonald % (Auto) 8.4 H (0.0-7.3) % Eos % (Auto) 1.8 (0.0-4.3) % Baso % (Auto) 0.7 (0.0-1.8) % Lymph # 0.8 L (1.2-5.4) K/mm3 Mcdonald # 0.5 (0.0-0.8) K/mm3 Eos # 0.1 (0.0-0.4) K/mm3 Baso # 0.0 (0.0-0.1) K/mm3 Seg Neutrophils % 76.5 H (40.0-70.0) % Seg Neutrophils # 4.7 (1.8-7.7) K/mm3 Sodium 139 (137-145) mmol/L Potassium 3.2 L (3.6-5.0) mmol/L Chloride 96.5 L (98-107) mmol/L Carbon Dioxide 26 (22-30) mmol/L Anion Gap 20 mmol/L BUN 10 (9-20) mg/dL Creatinine 0.5 L (0.8-1.5) mg/dL Estimated GFR > 60 ml/min BUN/Creatinine Ratio 20 % Glucose 89 (75-100) mg/dL Calcium 9.3 (8.4-10.2) mg/dL Total Bilirubin 0.70 (0.1-1.2) mg/dL AST 16 (5-40) units/L ALT 9 (7-56) units/L Alkaline Phosphatase 96 (35-129) units/L Troponin T < 0.010 (0.00-0.029) ng/mL Total Protein 6.7 (6.3-8.2) g/dL Albumin 4.0 (3.9-5) g/dL Albumin/Globulin Ratio 1.5 % - Medical Decision Making A/P: Minor head injury, forehead laceration 1- labs reviewed w/ Dr. Galarza, minimal hyperkalemia will replete orally 2- CT head and C-spine show no acute fractures or intracranial hemorrhage 3- good wound closure achieved via sutures. Sutures to be removed in 5-7 days. 4- Tylenol when necessary. 6- concussion precautions. - NEXUS Criteria Focal neurological deficit present: No Midline spinal tenderness present: No Altered level of consciousness: No Intoxication present: No Distracting injury present: No NEXUS results: C-Spine can be cleared clinically by these results. Imaging is not required. Critical care attestation.: If time is entered above; I have spent that time in minutes in the direct care of this critically ill patient, excluding procedure time. ED Disposition Clinical Impression: Laceration of head Qualifiers: Encounter type: initial encounter Location of open wound of head: scalp Foreign body presence: without foreign body Qualified Code(s): S01.01XA - Laceration without foreign body of scalp, initial encounter Minor head injury without loss of consciousness Qualifiers: Encounter type: initial encounter Qualified Code(s): S09.90XA - Unspecified injury of head, initial encounter Disposition: TO HOME OR SELFCARE Is pt being admited?: No Does the pt Need Aspirin: No Condition: Stable Instructions: Suture Care (ED), Laceration (ED), Minor Head Injury (ED) Additional Instructions: Sutures to be removed in 5-7 days Prescriptions: Acetaminophen [Acetaminophen TAB] 500 mg PO Q6HR PRN #20 tablet PRN Reason: Pain , Severe (7-10) Referrals: [facility] [Outside] - 3-5 Days Time of Disposition: 12:35
--- NOTE | 2017-10-20 12:10 | Cat Scan Report ---
CT HEAD WITHOUT CONTRAST: HISTORY: Status post fall, head trauma. TECHNIQUE: Sequential 2.5mm CT images. COMPARISON: 05/21/16. FINDINGS: Cerebral Parenchyma: Mild nonspecific chronic white matter changes are stable. Otherwise, the remaining brain parenchyma has normal attenuation. Cerebellum: Within normal limits. Brainstem: Within normal limits. Ventricles: Normal. Sella: Normal. Extra-axial spaces: Normal. Basal Cisterns: Normal. Intracranial Hemorrhage: None. Midline Shift: None. Calvarium: Normal. Sinuses: Mucosal thickening or fluid throughout the sinuses has resolved. Mastoid Air Cells: Adequately aerated. Visualized Orbits: Normal. IMPRESSION: No acute intracranial process is identified. Stable chronic white matter changes.
--- NOTE | 2017-10-20 12:14 | Cat Scan Report ---
CT SCAN OF THE CERVICAL SPINE: HISTORY: Pain status post fall. TECHNIQUE: Contiguous 1.25 mm axial images of the cervical spine were obtained. Sagittal and coronal reformatted images. FINDINGS: There is normal alignment of the cervical spine. The body, pedicles and posterior ligaments appear normal. No evidence of fracture or subluxation is seen. The spinal canal appears normal. The prevertebral soft tissues appear normal. Extensive surgical changes are noted in the neck, correlate with history. IMPRESSION: No evidence for acute injury to the cervical spine.
[2017-10-20] MEDS ORDERED: K-DUR PO ONE (12:32)
[2017-10-20] MEDS ORDERED: BOOSTRIX IM ONE (12:35)
[2017-10-20] MEDS ORDERED: TYLENOL PO ONE (12:36)
== END 2017-10-20 12:49 | disposition home or self-care (01) ==
LOC: ED 07:23
DX: S01.81XA Laceration without foreign body of other part of head, initial encounter (principal); S01.01XA Laceration without foreign body of scalp, initial encounter; I10 Essential (primary) hypertension; I82.622 Acute embolism and thrombosis of deep veins of left upper extremity; Z87.891 Personal history of nicotine dependence; Z85.12 Personal history of malignant neoplasm of trachea; Z79.899 Other long term (current) drug therapy; Z98.890 Other specified postprocedural states; W18.30XA Fall on same level, unspecified, initial encounter; Y93.89 Activity, other specified; Y99.8 Other external cause status; Y92.89 Other specified places as the place of occurrence of the external cause
CPT/HCPCS: 36415; 70450; 72125; 80053; 84484; 85025; 90471; 90715; 93005; 93010; A6250

== ENCOUNTER 2017-10-27 08:35 | Emergency (ER) | payer MEDICAID ==
[2017-10-27 08:41] VITALS: BP 114/81
--- NOTE | 2017-10-27 09:20 | Emergency Department Report ---
Suture/Staple Removal - [facility] Chief Complaint: Laceration/Recheck/Suture Stated Complaint: SUTURE REMOVAL Time Seen by Provider: 10/27/17 08:57 When Sutures or Flaca Placed: 5-7 Days Ago Wound Location: anterior forehead ED Review of Systems ROS: Stated complaint: SUTURE REMOVAL Other details as noted in HPI Constitutional: denies: chills, fever Eyes: denies: eye pain, eye discharge, vision change ENT: denies: ear pain, throat pain Respiratory: denies: cough, shortness of breath, wheezing Cardiovascular: denies: chest pain, palpitations Endocrine: no symptoms reported Gastrointestinal: denies: abdominal pain, nausea, diarrhea Genitourinary: denies: urgency, dysuria Musculoskeletal: denies: back pain, joint swelling, arthralgia Skin: denies: rash, lesions Neurological: denies: headache, weakness, paresthesias Psychiatric: denies: anxiety, depression Hematological/Lymphatic: denies: easy bleeding, easy bruising ED Past Medical Hx - Past Medical History Previous Medical History?: Yes Hx Hypertension: Yes Hx Congestive Heart Failure: No Hx Diabetes: No Hx Deep Vein Thrombosis: Yes (left upper extremity secondary to a port) Hx Asthma: No Hx COPD: No Additional medical history: throat cancer, trach placed 2012; 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 Removal of peg tube,. skin grafts, removed from left wrist and right inner thigh - Social History Smoking Status: Former Smoker Substance Use Type: Prescribed - Medications Home Medications: Home Medications Medication Instructions Recorded Confirmed Last Taken Type Docusate Sodium [Colace CAP] 100 mg PO BID 10/01/15 12/22/16 04/18/16 History Hydrochlorothiazide [HCTZ] 25 mg PO QDAY 10/01/15 12/22/16 04/18/16 History Oxycodone HCl [Oxycontin] 10 mg PO QID PRN 10/01/15 12/22/16 04/18/16 History Potassium Chloride [K-Dur] 20 meq PO DAILY 05/21/16 12/22/16 Unknown History Albuterol Sulfate [Albuterol 0.63% 0.63 mg IH Q4H PRN 12/22/16 12/22/16 Unknown History NEBS] Aspirin [Aspirin TAB] 325 mg PO QDAY 12/22/16 12/22/16 Unknown History Fluticasone/Salmeterol [Advair 1 puff IH BID 12/22/16 12/22/16 Unknown History Diskus 250-50 mcg] Ibuprofen [Motrin 800 MG tab] 800 mg PO Q8HR PRN #45 tablet 12/22/16 Unknown Rx Levothyroxine [Synthroid] 125 mcg PO QAM 12/22/16 12/22/16 Unknown History Magnesium Oxide [Mag-Ox] 400 mg PO QDAY 12/22/16 12/22/16 Unknown History Morphine Sulfate [Ms Contin] 120 mg PO Q8H PRN 12/22/16 12/22/16 Unknown History Pantoprazole [Protonix TAB] 40 mg PO QDAY #30 tablet 12/22/16 Unknown Rx Simvastatin [Zocor TAB] 40 mg PO QHS 12/22/16 12/22/16 Unknown History Ibuprofen [Motrin] 800 mg PO Q8HR PRN #15 tablet 01/03/17 Unknown Rx Neomy/Polymyx B/Hc (Otic) Soln 4 drops OTIC TID #1 bottle 01/03/17 Unknown Rx [Cortisporin (Otic) Soln] HYDROcodone/APAP 10-325 [[place] 1 each PO Q6HR PRN #15 tablet 01/06/17 Unknown Rx 10/325] Pregabalin [Lyrica] 50 mg PO BID #30 capsule 01/06/17 Unknown Rx Acetaminophen [Acetaminophen TAB] 500 mg PO Q6HR PRN #20 tablet 10/20/17 Unknown Rx Potassium Chloride [K-Dur] 20 meq PO QDAY #5 tablet 10/20/17 Unknown Rx Suture Removal Exam - Exam General: Vital signs noted. No distress. Alert and acting appropriately. Wound: No Pathologic Erythema, No Tenderness, No Drainage, No Pus, No Wound Dehiscence (wound appears clean and well-healed. No signs of infection) Other Systems: All other systems reviewed and are unremarkable. ED Course Vital Signs 10/27/17 08:38 Temperature 98.4 F Pulse Rate 80 Respiratory 18 Rate Blood Pressure 114/81 O2 Sat by Pulse 98 Oximetry ED Recheck MDM - Differential Diagnosis Suture/Staple Removal - Medical Decision Making A/P: Simple suture removal forehead 1-6 nylon sutures easily removed from anterior forehead. No wound dehiscence or signs of infection. Good wound approximation and healing achieved 2-a few Steri-Strips placed over the site after removal of sutures 3-patient given instructions on suture removal care Critical care attestation.: If time is entered above; I have spent that time in minutes in the direct care of this critically ill patient, excluding procedure time. ED Disposition Clinical Impression: Visit for suture removal Disposition: TO HOME OR SELFCARE Is pt being admited?: No Does the pt Need Aspirin: No Condition: Stable Instructions: Suture Removal (ED) Referrals: PRIMARY CARE, [Primary Care Provider] - 3-5 Days Time of Disposition: 09:20
== END 2017-10-27 09:23 | disposition home or self-care (01) ==
LOC: ED 08:35
DX: Z48.02 Encounter for removal of sutures (principal); I10 Essential (primary) hypertension; Z87.891 Personal history of nicotine dependence

== ENCOUNTER 2017-11-21 09:21 | Emergency (ER) | payer MEDICAID ==
[2017-11-21 09:44] VITALS: BP 132/77
--- NOTE | 2017-11-21 11:18 | Emergency Department Report ---
ED General Adult HPI - General Chief complaint: Neck Pain/Injury Stated complaint: SEVERE NECK PAIN Time Seen by Provider: 11/21/17 10:57 Source: patient Mode of arrival: Ambulatory Limitations: No Limitations - History of Present Illness Initial comments: Patient is currently being treated for throat cancer and is out of his pain medicine and presents to the emergency department for some relief. Patient states he sees his physician on Tuesday and just needs help until then. Patient communicates with me via notes on his phone because he is unable to talk due to the tracheostomy. -: Gradual Radiation: non-radiation Severity scale (0 -10): 9 Quality: sharp Consistency: constant Improves with: none Worsens with: none Associated Symptoms: denies other symptoms Treatments Prior to Arrival: none - Related Data Home Medications Medication Instructions Recorded Confirmed Last Taken Docusate Sodium [Colace CAP] 100 mg PO BID 10/01/15 12/22/16 04/18/16 Hydrochlorothiazide [HCTZ] 25 mg PO QDAY 10/01/15 12/22/16 04/18/16 Oxycodone HCl [Oxycontin] 10 mg PO QID PRN 10/01/15 12/22/16 04/18/16 Potassium Chloride [K-Dur] 20 meq PO DAILY 05/21/16 12/22/16 Unknown Albuterol Sulfate [Albuterol 0.63% 0.63 mg IH Q4H PRN 12/22/16 12/22/16 Unknown NEBS] Aspirin [Aspirin TAB] 325 mg PO QDAY 12/22/16 12/22/16 Unknown Fluticasone/Salmeterol [Advair 1 puff IH BID 12/22/16 12/22/16 Unknown Diskus 250-50 mcg] Levothyroxine [Synthroid] 125 mcg PO QAM 12/22/16 12/22/16 Unknown Magnesium Oxide [Mag-Ox] 400 mg PO QDAY 12/22/16 12/22/16 Unknown Morphine Sulfate [Ms Contin] 120 mg PO Q8H PRN 12/22/16 12/22/16 Unknown Simvastatin [Zocor TAB] 40 mg PO QHS 12/22/16 12/22/16 Unknown Previous Rx's Medication Instructions Recorded Last Taken Type Ibuprofen [Motrin 800 MG tab] 800 mg PO Q8HR PRN #45 tablet 12/22/16 Unknown Rx Pantoprazole [Protonix TAB] 40 mg PO QDAY #30 tablet 12/22/16 Unknown Rx Ibuprofen [Motrin] 800 mg PO Q8HR PRN #15 tablet 01/03/17 Unknown Rx Neomy/Polymyx B/Hc (Otic) Soln 4 drops OTIC TID #1 bottle 01/03/17 Unknown Rx [Cortisporin (Otic) Soln] HYDROcodone/APAP 10-325 [[place] 1 each PO Q6HR PRN #15 tablet 01/06/17 Unknown Rx 10/325] Pregabalin [Lyrica] 50 mg PO BID #30 capsule 01/06/17 Unknown Rx Acetaminophen [Acetaminophen TAB] 500 mg PO Q6HR PRN #20 tablet 10/20/17 Unknown Rx Potassium Chloride [K-Dur] 20 meq PO QDAY #5 tablet 10/20/17 Unknown Rx Morphine ER [Ms Contin ER] 60 mg PO Q12HR PRN #10 tablet 11/21/17 Unknown Rx Allergies Allergy/AdvReac Type Severity Reaction Status Date / Time No Known Allergies Allergy Verified 10/20/17 07:43 ED Review of Systems ROS: Stated complaint: SEVERE NECK PAIN Other details as noted in HPI Constitutional: denies: chills, fever Eyes: denies: eye pain, eye discharge, vision change ENT: denies: ear pain, throat pain Respiratory: denies: cough, shortness of breath, wheezing Cardiovascular: denies: chest pain, palpitations Endocrine: no symptoms reported Gastrointestinal: denies: abdominal pain, nausea, diarrhea Genitourinary: denies: urgency, dysuria Musculoskeletal: denies: back pain, joint swelling, arthralgia Skin: denies: rash, lesions Neurological: denies: headache, weakness, paresthesias Psychiatric: denies: anxiety, depression Hematological/Lymphatic: denies: easy bleeding, easy bruising ED Past Medical Hx - Past Medical History Hx Hypertension: Yes Hx Congestive Heart Failure: No Hx Diabetes: No Hx Deep Vein Thrombosis: Yes (left upper extremity secondary to a port) Hx of Cancer: Yes (throat CA) Hx Asthma: No Hx COPD: No Additional medical history: throat cancer, trach placed 2012; 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 Removal of peg tube,. skin grafts, removed from left wrist and right inner thigh - Social History Smoking Status: Never Smoker Substance Use Type: None - Medications Home Medications: Home Medications Medication Instructions Recorded Confirmed Last Taken Type Docusate Sodium [Colace CAP] 100 mg PO BID 10/01/15 12/22/16 04/18/16 History Hydrochlorothiazide [HCTZ] 25 mg PO QDAY 10/01/15 12/22/16 04/18/16 History Oxycodone HCl [Oxycontin] 10 mg PO QID PRN 10/01/15 12/22/16 04/18/16 History Potassium Chloride [K-Dur] 20 meq PO DAILY 05/21/16 12/22/16 Unknown History Albuterol Sulfate [Albuterol 0.63% 0.63 mg IH Q4H PRN 12/22/16 12/22/16 Unknown History NEBS] Aspirin [Aspirin TAB] 325 mg PO QDAY 12/22/16 12/22/16 Unknown History Fluticasone/Salmeterol [Advair 1 puff IH BID 12/22/16 12/22/16 Unknown History Diskus 250-50 mcg] Ibuprofen [Motrin 800 MG tab] 800 mg PO Q8HR PRN #45 tablet 12/22/16 Unknown Rx Levothyroxine [Synthroid] 125 mcg PO QAM 12/22/16 12/22/16 Unknown History Magnesium Oxide [Mag-Ox] 400 mg PO QDAY 12/22/16 12/22/16 Unknown History Morphine Sulfate [Ms Contin] 120 mg PO Q8H PRN 12/22/16 12/22/16 Unknown History Pantoprazole [Protonix TAB] 40 mg PO QDAY #30 tablet 12/22/16 Unknown Rx Simvastatin [Zocor TAB] 40 mg PO QHS 12/22/16 12/22/16 Unknown History Ibuprofen [Motrin] 800 mg PO Q8HR PRN #15 tablet 01/03/17 Unknown Rx Neomy/Polymyx B/Hc (Otic) Soln 4 drops OTIC TID #1 bottle 01/03/17 Unknown Rx [Cortisporin (Otic) Soln] HYDROcodone/APAP 10-325 [[place] 1 each PO Q6HR PRN #15 tablet 01/06/17 Unknown Rx 10/325] Pregabalin [Lyrica] 50 mg PO BID #30 capsule 01/06/17 Unknown Rx Acetaminophen [Acetaminophen TAB] 500 mg PO Q6HR PRN #20 tablet 10/20/17 Unknown Rx Potassium Chloride [K-Dur] 20 meq PO QDAY #5 tablet 10/20/17 Unknown Rx Morphine ER [Ms Contin ER] 60 mg PO Q12HR PRN #10 tablet 11/21/17 Unknown Rx ED Physical Exam - General Limitations: No Limitations General appearance: alert, in no apparent distress - Head Head exam: Present: atraumatic, normocephalic - Eye Eye exam: Present: normal appearance - ENT ENT exam: Present: mucous membranes moist - Neck Neck exam: Present: normal inspection, other (tracheostomy in place) - Respiratory Respiratory exam: Present: normal lung sounds bilaterally. Absent: respiratory distress - Cardiovascular Cardiovascular Exam: Present: regular rate, normal rhythm. Absent: systolic murmur, diastolic murmur, rubs, gallop - GI/Abdominal GI/Abdominal exam: Present: soft, normal bowel sounds - Rectal Rectal exam: Present: deferred - Extremities Exam Extremities exam: Present: normal inspection - Back Exam Back exam: Present: normal inspection - Neurological Exam Neurological exam: Present: alert, oriented X3 - Psychiatric Psychiatric exam: Present: normal affect, normal mood - Skin Skin exam: Present: warm, dry, intact, normal color. Absent: rash ED Course Vital Signs 11/21/17 09:40 Temperature 98.2 F Pulse Rate 81 Respiratory 18 Rate Blood Pressure 132/77 O2 Sat by Pulse 97 Oximetry ED Medical Decision Making - Medical Decision Making Discussed plan of care with patient Critical care attestation.: If time is entered above; I have spent that time in minutes in the direct care of this critically ill patient, excluding procedure time. ED Disposition Clinical Impression: Pain, cancer Disposition: DC-01 TO HOME OR SELFCARE Is pt being admited?: No Does the pt Need Aspirin: No Condition: Stable Additional Instructions: return if worse Prescriptions: Morphine ER [Ms Contin ER] 60 mg PO Q12HR PRN #10 tablet PRN Reason: Pain , Severe (7-10) Referrals: DION GRIER MD [Primary Care Provider] - 3-5 Days Time of Disposition: 11:16
== END 2017-11-21 11:27 | disposition home or self-care (01) ==
LOC: ED 09:21
DX: C14.0 Malignant neoplasm of pharynx, unspecified (principal); I10 Essential (primary) hypertension; Z86.718 Personal history of other venous thrombosis and embolism; Z79.01 Long term (current) use of anticoagulants
CPT/HCPCS: 99282

== ENCOUNTER 2018-01-22 13:37 | Emergency (ER) | payer MEDICAID ==
[2018-01-22] MEDS ORDERED: MORPHINE IM ONE (15:14)
--- NOTE | 2018-01-22 15:27 | Emergency Department Report ---
ED General Adult HPI - General Chief complaint: Headache Stated complaint: NECK AND HEADACHE Time Seen by Provider: 01/22/18 14:51 Source: patient Mode of arrival: Ambulatory Limitations: Language Barrier - History of Present Illness Initial comments: 52-year-old male with history of throat cancer. Patient currently undergoing chemotherapy treatments. Has undergone surgical resection and currently has tracheostomy in place. Patient reports chronic neck pain. States he sees a powder coat painter, who has prescribed MS Contin and oxycodone. Patient states he ran out of his pain medicine 2 days ago. Patient reported pain to the left side of his face and neck, location of his usual pain. Patient requesting something for pain right now, does not want a prescription. States his sister will call his physician tomorrow during business hours. MD Complaint: neck pain -: days(s) (3) Location: neck Radiation: other (face) Quality: stabbing Consistency: constant Improves with: medication (MS contin, oxycodone) Worsens with: none Associated Symptoms: headaches. denies: fever/chills - Related Data Home Medications Medication Instructions Recorded Confirmed Last Taken Docusate Sodium [Colace CAP] 100 mg PO BID 10/01/15 12/22/16 04/18/16 Oxycodone HCl [Oxycontin] 10 mg PO QID PRN 10/01/15 12/22/16 04/18/16 hydroCHLOROthiazide [HCTZ] 25 mg PO QDAY 10/01/15 12/22/16 04/18/16 Potassium Chloride [K-Dur] 20 meq PO DAILY 05/21/16 12/22/16 Unknown Albuterol Sulfate [Albuterol 0.63% 0.63 mg IH Q4H PRN 12/22/16 12/22/16 Unknown NEBS] Aspirin [Aspirin TAB] 325 mg PO QDAY 12/22/16 12/22/16 Unknown Fluticasone/Salmeterol [Advair 1 puff IH BID 12/22/16 12/22/16 Unknown Diskus 250-50 mcg] Levothyroxine [Synthroid] 125 mcg PO QAM 12/22/16 12/22/16 Unknown Magnesium Oxide [Mag-Ox] 400 mg PO QDAY 12/22/16 12/22/16 Unknown Morphine Sulfate [Ms Contin] 120 mg PO Q8H PRN 12/22/16 12/22/16 Unknown Simvastatin [Zocor TAB] 40 mg PO QHS 12/22/16 12/22/16 Unknown Previous Rx's Medication Instructions Recorded Last Taken Type Ibuprofen [Motrin 800 MG tab] 800 mg PO Q8HR PRN #45 tablet 12/22/16 Unknown Rx Pantoprazole [Protonix TAB] 40 mg PO QDAY #30 tablet 12/22/16 Unknown Rx Ibuprofen [Motrin] 800 mg PO Q8HR PRN #15 tablet 01/03/17 Unknown Rx Neomy/Polymyx B/Hc (Otic) Soln 4 drops OTIC TID #1 bottle 01/03/17 Unknown Rx [Cortisporin (Otic) Soln] HYDROcodone/APAP 10-325 [[place] 1 each PO Q6HR PRN #15 tablet 01/06/17 Unknown Rx 10/325] Pregabalin [Lyrica] 50 mg PO BID #30 capsule 01/06/17 Unknown Rx Acetaminophen [Acetaminophen TAB] 500 mg PO Q6HR PRN #20 tablet 10/20/17 Unknown Rx Potassium Chloride [K-Dur] 20 meq PO QDAY #5 tablet 10/20/17 Unknown Rx Morphine ER [Ms Contin ER] 60 mg PO Q12HR PRN #10 tablet 11/21/17 Unknown Rx Allergies Allergy/AdvReac Type Severity Reaction Status Date / Time No Known Allergies Allergy Verified 10/20/17 07:43 ED Review of Systems ROS: Stated complaint: NECK AND HEADACHE Other details as noted in HPI Comment: All other systems reviewed and negative Constitutional: denies: fever Respiratory: denies: shortness of breath Musculoskeletal: as per HPI Neurological: headache ED Past Medical Hx - Past Medical History Hx Hypertension: Yes Hx Congestive Heart Failure: No Hx Diabetes: No Hx Deep Vein Thrombosis: Yes (left upper extremity secondary to a port) Hx Asthma: No Hx COPD: No Additional medical history: throat cancer, trach placed 2012; 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 Removal of peg tube,. skin grafts, removed from left wrist and right inner thigh - Social History Smoking Status: Former Smoker Substance Use Type: None - Medications Home Medications: Home Medications Medication Instructions Recorded Confirmed Last Taken Type Docusate Sodium [Colace CAP] 100 mg PO BID 10/01/15 12/22/1604/18/17 History Oxycodone HCl [Oxycontin] 10 mg PO QID PRN 10/01/15 12/22/16 04/18/16 History hydroCHLOROthiazide [HCTZ] 25 mg PO QDAY 10/01/15 12/22/16 04/18/16 History Potassium Chloride [K-Dur] 20 meq PO DAILY 05/21/16 12/22/16 Unknown History Albuterol Sulfate [Albuterol 0.63% 0.63 mg IH Q4H PRN 12/22/16 12/22/16 Unknown History NEBS] Aspirin [Aspirin TAB] 325 mg PO QDAY 12/22/16 12/22/16 Unknown History Fluticasone/Salmeterol [Advair 1 puff IH BID 12/22/16 12/22/16 Unknown History Diskus 250-50 mcg] Ibuprofen [Motrin 800 MG tab] 800 mg PO Q8HR PRN #45 tablet 12/22/16 Unknown Rx Levothyroxine [Synthroid] 125 mcg PO QAM 12/22/16 12/22/16 Unknown History Magnesium Oxide [Mag-Ox] 400 mg PO QDAY 12/22/16 12/22/16 Unknown History Morphine Sulfate [Ms Contin] 120 mg PO Q8H PRN 12/22/16 12/22/16 Unknown History Pantoprazole [Protonix TAB] 40 mg PO QDAY #30 tablet 12/22/16 Unknown Rx Simvastatin [Zocor TAB] 40 mg PO QHS 12/22/16 12/22/16 Unknown History Ibuprofen [Motrin] 800 mg PO Q8HR PRN #15 tablet 01/03/17 Unknown Rx Neomy/Polymyx B/Hc (Otic) Soln 4 drops OTIC TID #1 bottle 01/03/17 Unknown Rx [Cortisporin (Otic) Soln] HYDROcodone/APAP 10-325 [[place] 1 each PO Q6HR PRN #15 tablet 01/06/17 Unknown Rx 10/325] Pregabalin [Lyrica] 50 mg PO BID #30 capsule 01/06/17 Unknown Rx Acetaminophen [Acetaminophen TAB] 500 mg PO Q6HR PRN #20 tablet 10/20/17 Unknown Rx Potassium Chloride [K-Dur] 20 meq PO QDAY #5 tablet 10/20/17 Unknown Rx Morphine ER [Ms Contin ER] 60 mg PO Q12HR PRN #10 tablet 11/21/17 Unknown Rx ED Physical Exam - General Limitations: Language Barrier General appearance: alert, in no apparent distress - Head Head exam: Present: atraumatic, normocephalic - Eye Eye exam: Present: normal appearance - Neck Neck exam: Present: other (tracheostomy in place, no obvious swelling/ erythem/ purulent discharge noted) - Respiratory Respiratory exam: Present: normal lung sounds bilaterally. Absent: respiratory distress - Cardiovascular Cardiovascular Exam: Present: regular rate, normal rhythm - GI/Abdominal GI/Abdominal exam: Present: soft. Absent: tenderness - Neurological Exam Neurological exam: Present: alert, oriented X3 - Psychiatric Psychiatric exam: Present: normal affect, normal mood - Skin Skin exam: Present: warm, dry, intact, normal color ED Course Vital Signs 01/22/18 01/22/18 13:52 15:40 Temperature 98.6 F Pulse Rate 80 86 Respiratory 20 100 H Rate Blood Pressure 101/72 Blood Pressure 115/72 [Right] O2 Sat by Pulse 100 Oximetry ED Medical Decision Making - Medical Decision Making 52-year-old male with history of laryngeal cancer currently undergoing treatment presented to the ER with neck pain. Patient states this pain is chronic in nature. Normally takes MS Contin and oxycodone which is prescribed by his pain management physician. Patient states he ran out of medication 2 days ago. And unable to reach his physician as it is the weekend. Patient reports no change in character of pain or location of pain. Patient given an IM dose of morphine for temporary pain relief. States the sister will call his physician tomorrow. Critical care attestation.: If time is entered above; I have spent that time in minutes in the direct care of this critically ill patient, excluding procedure time. ED Disposition Clinical Impression: Chronic pain after surgical procedure for malignant neoplasm Disposition: DC- TO HOME OR SELFCARE Is pt being admited?: No Condition: Stable Instructions: Chronic Pain (ED) Referrals: PRIMARY CARE, [Primary Care Provider] - [facility] Time of Disposition: 15:30
[2018-01-22 15:47] VITALS: BP 115/72
== END 2018-01-22 15:47 | disposition home or self-care (01) ==
LOC: ED 13:37
DX: G89.28 Other chronic postprocedural pain (principal); I10 Essential (primary) hypertension; Z86.718 Personal history of other venous thrombosis and embolism; Z87.891 Personal history of nicotine dependence; Z79.82 Long term (current) use of aspirin
CPT/HCPCS: 96372; 99282; J2270

== ENCOUNTER 2018-04-16 06:41 | Emergency (ER) | payer MEDICAID ==
[2018-04-16] MEDS ORDERED: NACL 0.9% 1000 ML 1,000 ML IV ONE (11:11)
[2018-04-16] MEDS ORDERED: REGLAN IV ONE (11:11)
--- NOTE | 2018-04-16 11:21 | Emergency Department Report ---
HPI - General Chief Complaint: Headache Time Seen by Provider: 04/16/18 11:04 ED Past Medical Hx - Past Medical History Hx Hypertension: Yes Hx Congestive Heart Failure: No Hx Diabetes: No Hx Deep Vein Thrombosis: Yes (left upper extremity secondary to a port) Hx Asthma: No Hx COPD: No Additional medical history: throat cancer, trach placed 2012; 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 Removal of peg tube,. skin grafts, removed from left wrist and right inner thigh - Social History Smoking Status: Never Smoker - Medications Home Medications: Home Medications Medication Instructions Recorded Confirmed Last Taken Type Docusate Sodium [Colace CAP] 100 mg PO BID 10/01/15 12/22/16 04/18/16 History Oxycodone HCl [Oxycontin] 10 mg PO QID PRN 10/01/15 12/22/16 04/18/16 History hydroCHLOROthiazide [HCTZ] 25 mg PO QDAY 10/01/15 12/22/16 04/18/16 History Potassium Chloride [K-Dur] 20 meq PO DAILY 05/21/16 12/22/16 Unknown History Albuterol Sulfate [Albuterol 0.63% 0.63 mg IH Q4H PRN 12/22/16 12/22/16 Unknown History NEBS] Aspirin [Aspirin TAB] 325 mg PO QDAY 12/22/16 12/22/16 Unknown History Fluticasone/Salmeterol [Advair 1 puff IH BID 12/22/16 12/22/16 Unknown History Diskus 250-50 mcg] Ibuprofen [Motrin 800 MG tab] 800 mg PO Q8HR PRN #45 tablet 12/22/16 Unknown Rx Levothyroxine [Synthroid] 125 mcg PO QAM 12/22/16 12/22/16 Unknown History Magnesium Oxide [Mag-Ox] 400 mg PO QDAY 12/22/16 12/22/16 Unknown History Morphine Sulfate [Ms Contin] 120 mg PO Q8H PRN 12/22/16 12/22/16 Unknown History Pantoprazole [Protonix TAB] 40 mg PO QDAY #30 tablet 12/22/16 Unknown Rx Simvastatin [Zocor TAB] 40 mg PO QHS 12/22/16 12/22/16 Unknown History Ibuprofen [Motrin] 800 mg PO Q8HR PRN #15 tablet 01/03/17 Unknown Rx Neomy/Polymyx B/Hc (Otic) Soln 4 drops OTIC TID #1 bottle 01/03/17 Unknown Rx [Cortisporin (Otic) Soln] HYDROcodone/APAP 10-325 [[place] 1 each PO Q6HR PRN #15 tablet 01/06/17 Unknown Rx 10/325] Pregabalin [Lyrica] 50 mg PO BID #30 capsule 01/06/17 Unknown Rx Acetaminophen [Acetaminophen TAB] 500 mg PO Q6HR PRN #20 tablet 10/20/17 Unknown Rx Potassium Chloride [K-Dur] 20 meq PO QDAY #5 tablet 10/20/17 Unknown Rx Morphine ER [Ms Contin ER] 60 mg PO Q12HR PRN #10 tablet 11/21/17 Unknown Rx Naproxen [Naprosyn] 500 mg PO BID #14 tablet 04/03/18 Unknown Rx ED Review of Systems ROS: Stated complaint: HEADACHE Other details as noted in HPI Physical Exam - Physical Exam Vital Signs: Vital Signs 04/16/18 04/16/18 06:46 07:10 Temperature 98.8 F 98.8 F Pulse Rate 82 82 Respiratory 18 18 Rate Blood Pressure 87/59 87/59 O2 Sat by Pulse 97 96 Oximetry ED Course Vital Signs 04/16/18 04/16/18 06:46 07:10 Temperature 98.8 F 98.8 F Pulse Rate 82 82 Respiratory 18 18 Rate Blood Pressure 87/59 87/59 O2 Sat by Pulse 97 96 Oximetry Critical care attestation.: If time is entered above; I have spent that time in minutes in the direct care of this critically ill patient, excluding procedure time. ED Disposition Condition: Stable Referrals: PRIMARY CARE, [Primary Care Provider] - 3-5 Days
--- NOTE | 2018-04-16 11:24 | Emergency Department Report ---
Chief Complaint: Headache Stated Complaint: HEADACHE Time Seen by Provider: 04/16/18 11:04 - HPI History of Present Illness: 52-year-old male with history of previous laryngeal cancer status post tracheostomy, chronic pain syndrome presents to the emergency department with complaint of headache, dizziness, burning to the throat. The patient has been seen here multiple times for these issues including one week ago. He had a CT scan of the head at that time that was negative for any acute process. Total prescription monitoring system shows that the patient had 180 Percocet 15 mg filled 2 days ago and has multiple narcotic pain meds filled in the recent past. However the patient does present with a blood pressure of systolic 87 and therefore should be seen on the main emergency Department side for fluid resuscitation and further workup. - ROS Review of Systems: Positive for headache, dizziness, burning of the throat Negative for fever, chest pain, shortness of breath - Exam Vital Signs: Vital Signs 04/16/18 04/16/18 06:46 07:10 Temperature 98.8 F 98.8 F Pulse Rate 82 82 Respiratory 18 18 Rate Blood Pressure 87/59 87/59 O2 Sat by Pulse 97 96 Oximetry Physical Exam: Patient is a poor historian secondary to his indwelling tracheostomy. He does not appear to have any focal, motor or sensory deficits and cranial nerves appear intact. MSE screening note: Focused history and physical exam performed. Due to findings the following was ordered: Patient moved over to the main emergency permit signed. I have ordered a CBC and BMP to start. An IV will be placed and I have ordered a liter of IV fluid resuscitation. ED Disposition for MSE Condition: Stable Referrals: PRIMARY CARE, [Primary Care Provider] - 3-5 Days
[2018-04-16 11:44] LABS: BUN/Creatinine Ratio 10; Blood Urea Nitrogen 8 mg/dL (9-20); Calcium 9.3 mg/dL (8.4-10.2); Hemolysis Index 8
[2018-04-16 12:06] LABS: Hematocrit 35.8 % (35.5-45.6); Hemoglobin 11.3 gm/dl (11.8-15.2); Mean Corpuscular HGB Conc 32 % (32-34); Mean Corpuscular Volume 87 fl (84-94); Platelet Count 345 K/mm3 (140-440); Red Blood Count 4.11 M/mm3 (3.65-5.03); Red Cell Distribution Width 13.4 % (13.2-15.2)
[2018-04-16] MEDS ORDERED: TORADOL IV ONE (12:08)
--- NOTE | 2018-04-16 12:23 | Emergency Department Report ---
HPI - General Chief Complaint: Headache Time Seen by Provider: 04/16/18 11:04 - HPI HPI: Room 25 The patient is a 52-year-old male presenting with chief complaint of left ear shoulder pain. The patient states for 2 days he's had pain of the left side of his face, left ear and left shoulder. Patient states he also has a sore throat. Patient denies history of fever or cough. Patient states he has had nausea but no vomiting. The patient was seen here 04/09/2018 for a headache. 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 Removal of peg tube,. skin grafts, removed from left wrist and right inner thigh - Family History Family history: no significant - Social History Smoking Status: Never Smoker Substance Use Type: None - Medications Home Medications: Home Medications Medication Instructions Recorded Confirmed Last Taken Type Docusate Sodium [Colace CAP] 100 mg PO BID 10/01/15 12/22/16 04/18/16 History Oxycodone HCl [Oxycontin] 10 mg PO QID PRN 10/01/15 12/22/16 04/18/16 History hydroCHLOROthiazide [HCTZ] 25 mg PO QDAY 10/01/15 12/22/16 04/18/16 History Potassium Chloride [K-Dur] 20 meq PO DAILY 05/21/16 12/22/16 Unknown History Albuterol Sulfate [Albuterol 0.63% 0.63 mg IH Q4H PRN 12/22/16 12/22/16 Unknown History NEBS] Aspirin [Aspirin TAB] 325 mg PO QDAY 12/22/16 12/22/16 Unknown History Fluticasone/Salmeterol [Advair 1 puff IH BID 12/22/16 12/22/16 Unknown History Diskus 250-50 mcg] Ibuprofen [Motrin 800 MG tab] 800 mg PO Q8HR PRN #45 tablet 12/22/16 Unknown Rx Levothyroxine [Synthroid] 125 mcg PO QAM 12/22/16 12/22/16 Unknown History Magnesium Oxide [Mag-Ox] 400 mg PO QDAY 12/22/16 12/22/16 Unknown History Morphine Sulfate [Ms Contin] 120 mg PO Q8H PRN 12/22/16 12/22/16 Unknown History Pantoprazole [Protonix TAB] 40 mg PO QDAY #30 tablet 12/22/16 Unknown Rx Simvastatin [Zocor TAB] 40 mg PO QHS 12/22/16 12/22/16 Unknown History Ibuprofen [Motrin] 800 mg PO Q8HR PRN #15 tablet 01/03/17 Unknown Rx Neomy/Polymyx B/Hc (Otic) Soln 4 drops OTIC TID #1 bottle 01/03/17 Unknown Rx [Cortisporin (Otic) Soln] HYDROcodone/APAP 10-325 [[place] 1 each PO Q6HR PRN #15 tablet 01/06/17 Unknown Rx 10/325] Pregabalin [Lyrica] 50 mg PO BID #30 capsule 01/06/17 Unknown Rx Acetaminophen [Acetaminophen TAB] 500 mg PO Q6HR PRN #20 tablet 10/20/17 Unknown Rx Potassium Chloride [K-Dur] 20 meq PO QDAY #5 tablet 10/20/17 Unknown Rx Morphine ER [Ms Contin ER] 60 mg PO Q12HR PRN #10 tablet 11/21/17 Unknown Rx Naproxen [Naprosyn] 500 mg PO BID #14 tablet 04/03/18 Unknown Rx Amoxicillin/Potassium Clav 10 ml PO Q12HR #200 ml 04/16/18 Unknown Rx [Augmentin 400-57 MG / 5ml] ED Review of Systems ROS: Stated complaint: HEADACHE Other details as noted in HPI Constitutional: denies: fever Eyes: denies: eye pain ENT: ear pain Respiratory: no symptoms reported. denies: cough Cardiovascular: denies: chest pain Endocrine: no symptoms reported Gastrointestinal: nausea. denies: vomiting Genitourinary: denies: dysuria Musculoskeletal: myalgia Physical Exam - Physical Exam Vital Signs: Vital Signs 04/16/18 04/16/18 06:46 07:10 Temperature 98.8 F 98.8 F Pulse Rate 82 82 Respiratory 18 18 Rate Blood Pressure 87/59 87/59 O2 Sat by Pulse 97 96 Oximetry Vital Signs 04/16/18 04/16/18 04/16/18 06:46 07:10 14:05 Temperature 98.8 F 98.8 F 98.0 F Pulse Rate 82 82 72 Respiratory 18 18 20 Rate Blood Pressure 87/59 87/59 Blood Pressure 146/81 [Right] O2 Sat by Pulse 97 96 98 Oximetry 04/16/18 14:07 Temperature Pulse Rate Respiratory 20 Rate Blood Pressure Blood Pressure [Right] O2 Sat by Pulse Oximetry Physical Exam: GENERAL: The patient is well-developed well-nourished male sitting on stretcher not appearing to be in acute distress. [] HEENT: Normocephalic. Atraumatic. Extraocular motions are intact. Patient has moist mucous membranes. Oropharynx reveals mild left peritonsillar edema. There is no fluctuant mass consistent with peritonsillar abscess. TMs clear bilaterally O her patient exhibits significant tenderness to the left auditory canal when the otoscope was introduced NECK: Supple. No meningitic signs are noted. No nuchal rigidity CHEST/LUNGS: Clear to auscultation. There is no respiratory distress noted. HEART/CARDIOVASCULAR: Regular. There is no tachycardia. There is no gallop rub or murmur. ABDOMEN: Abdomen is soft, nontender. Patient has normal bowel sounds. There is no abdominal distention. SKIN: There is no rash. There is no edema. There is no diaphoresis. NEURO: The patient is awake, alert, and oriented. The patient is cooperative. The patient has normal speech MUSCULOSKELETAL: There is no evidence of acute injury. ED Course Vital Signs 04/16/18 04/16/18 06:46 07:10 Temperature 98.8 F 98.8 F Pulse Rate 82 82 Respiratory 18 18 Rate Blood Pressure 87/59 87/59 O2 Sat by Pulse 97 96 Oximetry ED Medical Decision Making - Lab Data Result diagrams: 04/16/18 11:14 04/16/18 11:14 Laboratory Tests 04/16/18 04/16/18 11:14 11:14 WBC 5.8 RBC 4.11 Hgb 11.3 L Hct 35.8 MCV 87 MCH 28 MCHC 32 RDW 13.4 Plt Count 345 Lymph % (Auto) [employer] [place] % (Auto) [employer] Eos % (Auto) [employer] Baso % (Auto) [employer] Lymph # [employer] [place] # [employer] Eos # [employer] Baso # [employer] Seg Neutrophils % [employer]ic Seg Neutrophils # [employer]ic Sodium 136 L Potassium 4.0 Chloride 96.4 L Carbon Dioxide 26 Anion Gap 18 BUN 8 L Creatinine 0.8 Estimated GFR > 60 BUN/Creatinine Ratio 10 Glucose 107 H Calcium 9.3 - Differential Diagnosis otitis externa, URI, pharyngitis Critical care attestation.: If time is entered above; I have spent that time in minutes in the direct care of this critically ill patient, excluding procedure time. ED Disposition Clinical Impression: URI, acute, Earache, left Disposition: DC- TO HOME OR SELFCARE Is pt being admited?: No Does the pt Need Aspirin: No Condition: Stable Additional Instructions: Return to the emergency department immediately should you develop worsening symptoms, fever, inability to tolerate food or liquid or any other concerns. Prescriptions: Amoxicillin/Potassium Clav [Augmentin 400-57 MG / 5ml] 10 ml PO Q12HR #200 ml Referrals: PRIMARY CARE, [Primary Care Provider] - 3-5 Days Time of Disposition: 14:14
[2018-04-16 14:06] VITALS: BP 146/81
== END 2018-04-16 14:46 | disposition home or self-care (01) ==
LOC: ED 06:41
DX: J06.9 Acute upper respiratory infection, unspecified (principal); M25.512 Pain in left shoulder; R42 Dizziness and giddiness; E11.9 Type 2 diabetes mellitus without complications; Z86.718 Personal history of other venous thrombosis and embolism; Z85.21 Personal history of malignant neoplasm of larynx
CPT/HCPCS: 36415; 80048; 85025; 96361; 96374; 96375; 99283; J1885; J2765; J7030

== ENCOUNTER 2018-04-25 04:57 | Emergency (ER) | payer MEDICAID ==
[2018-04-25] MEDS ORDERED: NACL 0.9% 1000 ML 2,000 ML ONE (05:47)
[2018-04-25] MEDS ORDERED: NACL 0.9% 1000 ML 1,000 ML IV ONE ×2 (05:48→06:43)
[2018-04-25] MEDS ORDERED: TORADOL IV ONE (05:48)
[2018-04-25] MEDS ORDERED: MORPHINE IV ONE (05:48)
--- NOTE | 2018-04-25 05:50 | Emergency Department Report ---
Blank Doc - Documentation Documentation: Medical screening exam: Patient is a 52-year-old gentleman who has throat cancer who is complaining of a headache. Patient states headache started at approximately 3 AM. Patient has had headaches occasionally secondary to his cancer diagnosis. Patient's mass does according to his family member present against his carotid. Patient is alert and oriented. Nurses alerted me to come to the room because of a brief episode of hypotension. Patient is on narcotics at home. Blood pressure was 98 systolic on my arrival. Patient ordered to have IV fluids check laboratory studies and the patient will be reassessed.
--- NOTE | 2018-04-25 06:24 | Emergency Department Report ---
ED Headache HPI - General Chief Complaint: Headache Stated Complaint: THROAT CANCER/PAIN Time Seen by Provider: 04/25/18 05:49 - History of Present Illness Initial Comments: 52-year-old male presents to ED with complaint of headache. Patient has history of laryngeal cancer, status post resection and treatment. Patient reports he has a tumor that presses against his jugular vein, which causes chronic left facial pain and headaches. Patient is on pain medication for this, including MS Contin. However, patient reports exacerbation of his pain that began 2 hours ago. Patient characterizes the pain as burning. Patient denies fever. Has tracheostomy in place. Patient presents a card that shows he had an appointment with his oncologist 2 weeks ago. Patient unsure when his next appointment is, he reports that his sister keeps track of that information. Oncologist: Dr Castillo, Dr Norman Timing/Duration: 1-3 hours Quality: severe Recent Head Trauma: no recent headache/trauma, frequent headaches Modifying Factors: worse with: cold therapy, exposure to light, movement Associated Symptoms: facial pain. denies: fever/chills, nausea/vomiting, vision changes Allergies/Adverse Reactions: Allergies No Known Allergies Allergy (Verified 04/16/18 07:10) Home Medications: Ambulatory Orders Docusate Sodium [Colace CAP] 100 mg PO BID 10/01/15 Oxycodone HCl [Oxycontin] 10 mg PO QID PRN 10/01/15 hydroCHLOROthiazide [HCTZ] 25 mg PO QDAY 10/01/15 Potassium Chloride [K-Dur] 20 meq PO DAILY 05/21/16 Albuterol Sulfate [Albuterol 0.63% NEBS] 0.63 mg IH Q4H PRN 12/22/16 Aspirin [Aspirin TAB] 325 mg PO QDAY 12/22/16 Fluticasone/Salmeterol [Advair Diskus 250-50 mcg] 1 puff IH BID 12/22/16 Ibuprofen [Motrin 800 MG tab] 800 mg PO Q8HR PRN #45 tablet 12/22/16 Levothyroxine [Synthroid] 125 mcg PO QAM 12/22/16 Magnesium Oxide [Mag-Ox] 400 mg PO QDAY 12/22/16 Morphine Sulfate [Ms Contin] 120 mg PO Q8H PRN 12/22/16 Pantoprazole [Protonix TAB] 40 mg PO QDAY #30 tablet 12/22/16 Simvastatin [Zocor TAB] 40 mg PO QHS 12/22/16 Ibuprofen [Motrin] 800 mg PO Q8HR PRN #15 tablet 01/03/17 Neomy/Polymyx B/Hc (Otic) Soln [Cortisporin (Otic) Soln] 4 drops OTIC TID #1 bottle 01/03/17 HYDROcodone/APAP 10-325 [[place] 10/325] 1 each PO Q6HR PRN #15 tablet 01/06/17 Pregabalin [Lyrica] 50 mg PO BID #30 capsule 01/06/17 Acetaminophen [Acetaminophen TAB] 500 mg PO Q6HR PRN #20 tablet 10/20/17 Potassium Chloride [K-Dur] 20 meq PO QDAY #5 tablet 10/20/17 Morphine ER [Ms Contin ER] 60 mg PO Q12HR PRN #10 tablet 11/21/17 Naproxen [Naprosyn] 500 mg PO BID #14 tablet 04/03/18 Amoxicillin/Potassium Clav [Augmentin 400-57 MG / 5ml] 10 ml PO Q12HR #200 ml 04/16/18 ED Review of Systems ROS: Stated complaint: THROAT CANCER/PAIN Other details as noted in HPI Comment: All other systems reviewed and negative Constitutional: denies: chills, fever Respiratory: denies: shortness of breath Gastrointestinal: denies: nausea, vomiting Neurological: headache. denies: weakness, numbness, paresthesias ED Past Medical Hx - Past Medical History Hx Hypertension: Yes Hx Congestive Heart Failure: No Hx Diabetes: No Hx Deep Vein Thrombosis: Yes (left upper extremity secondary to a port) Hx Asthma: No Hx COPD: No Additional medical history: throat cancer, trach placed 2012; 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 Removal of peg tube,. skin grafts, removed from left wrist and right inner thigh - Social History Smoking Status: Never Smoker Substance Use Type: None - Medications Home Medications: Home Medications Medication Instructions Recorded Confirmed Last Taken Type Docusate Sodium [Colace CAP] 100 mg PO BID 10/01/15 12/22/16 04/18/16 History Oxycodone HCl [Oxycontin] 10 mg PO QID PRN 10/01/15 12/22/16 04/18/16 History hydroCHLOROthiazide [HCTZ] 25 mg PO QDAY 10/01/15 12/22/16 04/18/16 History Potassium Chloride [K-Dur] 20 meq PO DAILY 05/21/16 12/22/16 Unknown History Albuterol Sulfate [Albuterol 0.63% 0.63 mg IH Q4H PRN 12/22/16 12/22/16 Unknown History NEBS] Aspirin [Aspirin TAB] 325 mg PO QDAY 12/22/16 12/22/16 Unknown History Fluticasone/Salmeterol [Advair 1 puff IH BID 12/22/16 12/22/16 Unknown History Diskus 250-50 mcg] Ibuprofen [Motrin 800 MG tab] 800 mg PO Q8HR PRN #45 tablet 12/22/16 Unknown Rx Levothyroxine [Synthroid] 125 mcg PO QAM 12/22/16 12/22/16 Unknown History Magnesium Oxide [Mag-Ox] 400 mg PO QDAY 12/22/16 12/22/16 Unknown History Morphine Sulfate [Ms Contin] 120 mg PO Q8H PRN 12/22/16 12/22/16 Unknown History Pantoprazole [Protonix TAB] 40 mg PO QDAY #30 tablet 12/22/16 Unknown Rx Simvastatin [Zocor TAB] 40 mg PO QHS 12/22/16 12/22/16 Unknown History Ibuprofen [Motrin] 800 mg PO Q8HR PRN #15 tablet 01/03/17 Unknown Rx Neomy/Polymyx B/Hc (Otic) Soln 4 drops OTIC TID #1 bottle 01/03/17 Unknown Rx [Cortisporin (Otic) Soln] HYDROcodone/APAP 10-325 [[place] 1 each PO Q6HR PRN #15 tablet 01/06/17 Unknown Rx 10/325] Pregabalin [Lyrica] 50 mg PO BID #30 capsule 01/06/17 Unknown Rx Acetaminophen [Acetaminophen TAB] 500 mg PO Q6HR PRN #20 tablet 10/20/17 Unknown Rx Potassium Chloride [K-Dur] 20 meq PO QDAY #5 tablet 10/20/17 Unknown Rx Morphine ER [Ms Contin ER] 60 mg PO Q12HR PRN #10 tablet 11/21/17 Unknown Rx Naproxen [Naprosyn] 500 mg PO BID #14 tablet 04/03/18 Unknown Rx Amoxicillin/Potassium Clav 10 ml PO Q12HR #200 ml 04/16/18 Unknown Rx [Augmentin 400-57 MG / 5ml] ED Physical Exam - General Limitations: Other General appearance: alert, other (in obvious pain) - Head Head exam: Present: atraumatic, normocephalic - Eye Eye exam: Present: normal appearance - ENT ENT exam: Present: mucous membranes moist - Neck Neck exam: Present: other (tracheoostomy in place, no swelling/ erythema/ purulent drainage) - Respiratory Respiratory exam: Present: normal lung sounds bilaterally. Absent: respiratory distress - Cardiovascular Cardiovascular Exam: Present: regular rate, normal rhythm - GI/Abdominal GI/Abdominal exam: Present: soft. Absent: distended - Extremities Exam Extremities exam: Present: normal inspection - Neurological Exam Neurological exam: Present: alert, oriented X3 - Psychiatric Psychiatric exam: Present: normal affect, normal mood - Skin Skin exam: Present: warm, dry, intact, normal color. Absent: rash ED Course Vital Signs 04/25/18 04/25/18 04/25/18 05:04 05:50 06:00 Temperature 98.7 F 99 F Pulse Rate 70 69 Respiratory 17 12 Rate Blood Pressure 148/126 99/65 Blood Pressure 93/65 [Right] O2 Sat by Pulse 99 100 99 Oximetry 04/25/18 06:01 Temperature Pulse Rate Respiratory 15 Rate Blood Pressure Blood Pressure [Right] O2 Sat by Pulse Oximetry - Reevaluation(s) Reevaluation #1: 04/25/18 07:16 Pt asleep in room. Easily arousable. States his pain is improved. ED Medical Decision Making - Lab Data Result diagrams: 04/25/18 06:11 04/25/18 06:11 - Medical Decision Making 52-year-old male with laryngeal cancer presents with exacerbation of his usual chronic headaches and facial pain. Patient had initially slightly low blood pressure, IV fluids and labs drawn. Labs unremarkable. IV morphine was given. Patient reports significant improvement of his pain. Patient able to get some rest here in ED. Will discharge at this time. Patient advised to follow-up with his oncologist. - Differential Diagnosis chronic pain Critical care attestation.: If time is entered above; I have spent that time in minutes in the direct care of this critically ill patient, excluding procedure time. ED Disposition Clinical Impression: Chronic headache Disposition: DC-01 TO HOME OR SELFCARE Is pt being admited?: No Condition: Stable Instructions: Chronic Pain (ED) Referrals: PRIMARY CARE, [Referring] - 3-5 Days Time of Disposition: 07:16
[2018-04-25 06:40] LABS: Basophils # (Auto) 0.1 K/mm3 (0.0-0.1); Basophils % (Auto) 0.8 % (0.0-1.8); Eosinophils # (Auto) 0.1 K/mm3 (0.0-0.4); Eosinophils % (Auto) 1.4 % (0.0-4.3); Hematocrit 29.9 % (35.5-45.6); Hemoglobin 9.7 gm/dl (11.8-15.2); Lymphocytes # (Auto) 0.8 K/mm3 (1.2-5.4); Lymphocytes % (Auto) 11.3 % (13.4-35.0); Mean Corpuscular HGB Conc 33 % (32-34); Mean Corpuscular Volume 86 fl (84-94); Monocytes # (Auto) 0.6 K/mm3 (0.0-0.8); Platelet Count 308 K/mm3 (140-440); Red Blood Count 3.48 M/mm3 (3.65-5.03); Red Cell Distribution Width 13.3 % (13.2-15.2)
[2018-04-25 06:54] LABS: BUN/Creatinine Ratio 11; Blood Urea Nitrogen 9 mg/dL (9-20); Calcium 8.3 mg/dL (8.4-10.2); Hemolysis Index 9
[2018-04-25 09:01] VITALS: BP 121/79
== END 2018-04-25 08:57 | disposition home or self-care (01) ==
LOC: ED 04:57
DX: R51 Headache (principal); I10 Essential (primary) hypertension; Z86.718 Personal history of other venous thrombosis and embolism; Z85.819 Personal history of malignant neoplasm of unspecified site of lip, oral cavity, and pharynx
CPT/HCPCS: 36415; 80048; 85025; 96374; 96375; 99283; J1885; J2270; J7030; 96361

== ENCOUNTER 2018-05-14 05:16 | Emergency (ER) | payer MEDICAID ==
[2018-05-14 05:52] VITALS: BP 125/85
--- NOTE | 2018-05-14 06:08 | Emergency Department Report ---
ED General Adult HPI - General Chief complaint: Pain General Stated complaint: SHOULDER PAIN HEADACHE THROAT DAWSON Time Seen by Provider: 05/14/18 06:05 Source: patient, EMS (ems notes not available at time of chart dictation), RN notes reviewed, old records reviewed Mode of arrival: Ambulatory Limitations: Physical Limitation (patient has a tracheostomy) - History of Present Illness Initial comments: This is a 52-year-old gentleman whom I have evaluated in the past, who has had multiple evaluations in this emergency department, who presents to the ER with a complaint of chronic throat pain, chronic shoulder pain, and chronic musculoskeletal pain. The patient makes no complaint of fever, new or different shortness of breath, chest pain or abdominal pain. The patient is indicating that he would like one of his narcotic prescriptions refilled. Location: neck, left, right, upper extremity Severity scale (0 -10): 10 - Related Data Home Medications Medication Instructions Recorded Confirmed Last Taken Docusate Sodium [Colace CAP] 100 mg PO BID 10/01/15 12/22/16 04/18/16 Oxycodone HCl [Oxycontin] 10 mg PO QID PRN 10/01/15 12/22/16 04/18/16 hydroCHLOROthiazide [HCTZ] 25 mg PO QDAY 10/01/15 12/22/16 04/18/16 Potassium Chloride [K-Dur] 20 meq PO DAILY 05/21/16 12/22/16 Unknown Albuterol Sulfate [Albuterol 0.63% 0.63 mg IH Q4H PRN 12/22/16 12/22/16 Unknown NEBS] Aspirin [Aspirin TAB] 325 mg PO QDAY 12/22/16 12/22/16 Unknown Fluticasone/Salmeterol [Advair 1 puff IH BID 12/22/16 12/22/16 Unknown Diskus 250-50 mcg] Levothyroxine [Synthroid] 125 mcg PO QAM 12/22/16 12/22/16 Unknown Magnesium Oxide [Mag-Ox] 400 mg PO QDAY 12/22/16 12/22/16 Unknown Morphine Sulfate [Ms Contin] 120 mg PO Q8H PRN 12/22/16 12/22/16 Unknown Simvastatin [Zocor TAB] 40 mg PO QHS 12/22/16 12/22/16 Unknown Previous Rx's Medication Instructions Recorded Last Taken Type Ibuprofen [Motrin 800 MG tab] 800 mg PO Q8HR PRN #45 tablet 12/22/16 Unknown Rx Pantoprazole [Protonix TAB] 40 mg PO QDAY #30 tablet 12/22/16 Unknown Rx Ibuprofen [Motrin] 800 mg PO Q8HR PRN #15 tablet 01/03/17 Unknown Rx Neomy/Polymyx B/Hc (Otic) Soln 4 drops OTIC TID #1 bottle 01/03/17 Unknown Rx [Cortisporin (Otic) Soln] HYDROcodone/APAP 10-325 [[place] 1 each PO Q6HR PRN #15 tablet 01/06/17 Unknown Rx 10/325] Pregabalin [Lyrica] 50 mg PO BID #30 capsule 01/06/17 Unknown Rx Acetaminophen [Acetaminophen TAB] 500 mg PO Q6HR PRN #20 tablet 10/20/17 Unknown Rx Potassium Chloride [K-Dur] 20 meq PO QDAY #5 tablet 10/20/17 Unknown Rx Morphine ER [Ms Contin ER] 60 mg PO Q12HR PRN #10 tablet 11/21/17 Unknown Rx Naproxen [Naprosyn] 500 mg PO BID #14 tablet 04/03/18 Unknown Rx Amoxicillin/Potassium Clav 10 ml PO Q12HR #200 ml 04/16/18 Unknown Rx [Augmentin 400-57 MG / 5ml] Acetaminophen [Tylenol Arthritis] 650 mg PO Q6HR PRN #30 tablet.er 05/14/18 Unknown Rx Ibuprofen [Motrin] 600 mg PO Q8H PRN #30 tablet 05/14/18 Unknown Rx Naloxone HCl [Narcan Nasal [place]] 4 mg NS Q1HR PRN #5 spray 05/14/18 Unknown Rx Allergies Allergy/AdvReac Type Severity Reaction Status Date / Time No Known Allergies Allergy Verified 04/16/18 07:10 ED Review of Systems ROS: Stated complaint: SHOULDER PAIN HEADACHE THROAT DAWSON Other details as noted in HPI Constitutional: denies: fever Respiratory: denies: cough, shortness of breath Gastrointestinal: denies: abdominal pain Musculoskeletal: arthralgia, myalgia Neurological: denies: weakness ED Past Medical Hx - Past Medical History Hx Hypertension: Yes Hx Congestive Heart Failure: No Hx Diabetes: No Hx Deep Vein Thrombosis: Yes (left upper extremity secondary to a port) Hx Asthma: No Hx COPD: No Additional medical history: throat cancer, trach placed 2012; 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 Removal of peg tube,. skin grafts, removed from left wrist and right inner thigh - Social History Smoking Status: Never Smoker Substance Use Type: None - Medications Home Medications: Home Medications Medication Instructions Recorded Confirmed Last Taken Type Docusate Sodium [Colace CAP] 100 mg PO BID 10/01/15 12/22/16 04/18/16 History Oxycodone HCl [Oxycontin] 10 mg PO QID PRN 10/01/15 12/22/16 04/18/16 History hydroCHLOROthiazide [HCTZ] 25 mg PO QDAY 10/01/15 12/22/16 04/18/16 History Potassium Chloride [K-Dur] 20 meq PO DAILY 05/21/16 12/22/16 Unknown History Albuterol Sulfate [Albuterol 0.63% 0.63 mg IH Q4H PRN 12/22/16 12/22/16 Unknown History NEBS] Aspirin [Aspirin TAB] 325 mg PO QDAY 12/22/16 12/22/16 Unknown History Fluticasone/Salmeterol [Advair 1 puff IH BID 12/22/16 12/22/16 Unknown History Diskus 250-50 mcg] Ibuprofen [Motrin 800 MG tab] 800 mg PO Q8HR PRN #45 tablet 12/22/16 Unknown Rx Levothyroxine [Synthroid] 125 mcg PO QAM 12/22/16 12/22/16 Unknown History Magnesium Oxide [Mag-Ox] 400 mg PO QDAY 12/22/16 12/22/16 Unknown History Morphine Sulfate [Ms Contin] 120 mg PO Q8H PRN 12/22/16 12/22/16 Unknown History Pantoprazole [Protonix TAB] 40 mg PO QDAY #30 tablet 12/22/16 Unknown Rx Simvastatin [Zocor TAB] 40 mg PO QHS 12/22/16 12/22/16 Unknown History Ibuprofen [Motrin] 800 mg PO Q8HR PRN #15 tablet 01/03/17 Unknown Rx Neomy/Polymyx B/Hc (Otic) Soln 4 drops OTIC TID #1 bottle 01/03/17 Unknown Rx [Cortisporin (Otic) Soln] HYDROcodone/APAP 10-325 [[place] 1 each PO Q6HR PRN #15 tablet 01/06/17 Unknown Rx 10/325] Pregabalin [Lyrica] 50 mg PO BID #30 capsule 01/06/17 Unknown Rx Acetaminophen [Acetaminophen TAB] 500 mg PO Q6HR PRN #20 tablet 10/20/17 Unknown Rx Potassium Chloride [K-Dur] 20 meq PO QDAY #5 tablet 10/20/17 Unknown Rx Morphine ER [Ms Contin ER] 60 mg PO Q12HR PRN #10 tablet 11/21/17 Unknown Rx Naproxen [Naprosyn] 500 mg PO BID #14 tablet 04/03/18 Unknown Rx Amoxicillin/Potassium Clav 10 ml PO Q12HR #200 ml 04/16/18 Unknown Rx [Augmentin 400-57 MG / 5ml] Acetaminophen [Tylenol Arthritis] 650 mg PO Q6HR PRN #30 tablet.er 05/14/18 Unknown Rx Ibuprofen [Motrin] 600 mg PO Q8H PRN #30 tablet 05/14/18 Unknown Rx Naloxone HCl [Narcan Nasal [place]] 4 mg NS Q1HR PRN #5 spray 05/14/18 Unknown Rx ED Physical Exam - General Limitations: Other (patient has a tracheostomy.) General appearance: alert, in no apparent distress - Head Head exam: Present: atraumatic, normocephalic - Eye Eye exam: Present: normal appearance, EOMI - ENT ENT exam: Present: normal exam, normal orophraynx, mucous membranes moist, normal external ear exam - Neck Neck exam: Present: normal inspection, full ROM, other (no redness, pus or streaking). Absent: tenderness, meningismus - Respiratory Respiratory exam: Present: normal lung sounds bilaterally. Absent: respiratory distress, wheezes, rales, rhonchi, stridor, chest wall tenderness, accessory muscle use, decreased breath sounds, prolonged expiratory - Cardiovascular Cardiovascular Exam: Present: regular rate, normal rhythm, normal heart sounds. Absent: bradycardia, tachycardia, irregular rhythm, systolic murmur, diastolic murmur, rubs, gallop - GI/Abdominal GI/Abdominal exam: Present: soft. Absent: distended, tenderness, guarding, rebound, rigid, pulsatile mass - Rectal Rectal exam: Present: deferred - Extremities Exam Extremities exam: Present: normal inspection, full ROM, other (patient moving 4 extremities spontaneously. There is no obvious redness, pus or streaking.) - Back Exam Back exam: Present: normal inspection, full ROM. Absent: tenderness, CVA tenderness (R), paraspinal tenderness, vertebral tenderness - Neurological Exam Neurological exam: Present: alert, normal gait, other (patient moving 4 extremities spontaneously. There is no facial droop. Extraocular movements are intact bilaterally. Tongue is midline. Walking with a steady gait.) - Psychiatric Psychiatric exam: Present: anxious - Skin Skin exam: Present: warm, dry, intact, normal color. 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 1 05/09/2018 OXYCODONE HCL 15 MG TABLET 180.0 30 [place] RES[facility]MA [id number] [facility] ([id number]) 0 135.0 MME Medicaid [place] 05/10/2018 1 05/09/2018 LYRICA 50 MG CAPSULE 90.0 30 [place] RESHMA [id number] [facility] ([id number]) 0 [place] 04/29/2018 1 04/29/2018 ACETAMINOPHEN-COD #3 TABLET 15.0 3 OY [facility] [id number] [facility] ([id number]) 0 22.5 MME [place] 05/14/18 06:16 Differential diagnosis, including but not limited to: Migraine headache, tension headache, cluster headache, narcotic dependence Assessment and plan: 52-year-old gentleman whom I have evaluated in the past, with multiple ER visits for headache and musculoskeletal pain. We have reviewed the [place] prescription database, and it is elucidated that the patient received 180 tablets of oxycodone, 15 mg, 4 days ago, and Lyrica, 50 mg, 4 days ago. The patient has an unremarkable physical examination, and is in no acute distress at this time. His range of motion is intact, and the patient spent a rather prolonged period Of time trying to explain to me why he needed a new prescription for a narcotic. It was explained to the patient that he would need to follow up with his primary care doctor or pain specialist if he felt like he needed additional pain medication or pain prescription. This patient has had multiple evaluations in this emergency department for chronic pain, he is not tachycardic, he is not hypoxic, he is moving 4 extremities without difficulty, and he spent the majority of the interview pointing to his prescription record, indicating that he needed a narcotic refill. He does not appear to have an emergent medical condition at this point in time, the patient was informed that he would need to follow up with his primary care doctor or pain specialist if he felt like he required additional pain medication. The patient does not appear to have an emergent medical condition at this time, and he can be managed expectantly as an outpatient for his chronic pain syndrome. 05/17/18 20:10 ED Medical Decision Making - Lab Data Vital Signs 05/14/18 05/14/18 05:32 05:48 Temperature 99 F 99.7 F H Pulse Rate 99 H 78 Respiratory 18 16 Rate Blood Pressure 134/96 Blood Pressure 125/85 [Right] O2 Sat by Pulse 97 95 Oximetry Critical care attestation.: If time is entered above; I have spent that time in minutes in the direct care of this critically ill patient, excluding procedure time. ED Disposition Clinical Impression: Chronic pain, Narcotic dependence Disposition: DC-01 TO HOME OR SELFCARE Is pt being admited?: No Does the pt Need Aspirin: No Condition: Good Additional Instructions: Continue outpatient medications. Please note, that 4 days ago, the patient was prescribed 180 tablets of oxycodone, 15 mg, and 90 tablets of Lyrica, 50 milligrams. The patient needs to follow up with his primary pain doctor, or pain specialist, if he feels like his pain medication is not adequate. Return to the ER right away with new pain, worsening pain, migration of pain, confusion, projectile vomiting, change in mental status, inability to tolerate liquid feeds. It is recommended that the patient take his pain medication on the prescribed recommended basis, as noted on each individual prescription. Using these medications more frequently than the prescribed matter may result in adverse event, such as respiratory arrest, , paralysis, permanent loss of quality of life. Use the Narcan medication as needed/directed if the patient is concerned that he is developing symptoms of overdose. Prescriptions: Acetaminophen [Tylenol Arthritis] 650 mg PO Q6HR PRN #30 tablet.er PRN Reason: Pain Ibuprofen [Motrin] 600 mg PO Q8H PRN #30 tablet PRN Reason: Pain Naloxone HCl [Narcan Nasal [place]] 4 mg NS Q1HR PRN #5 spray PRN Reason: Opioid Reversal Referrals: FREDERIC BARFIELD MD [Primary Care Provider] - 3-5 Days
[2018-05-14] MEDS ORDERED: IBUPROFEN PO ONE (06:14)
[2018-05-14] MEDS ORDERED: TYLENOL PO ONE (06:14)
== END 2018-05-14 06:32 | disposition home or self-care (01) ==
LOC: ED 05:16
DX: R51 Headache (principal); M79.18 Myalgia, other site; G89.29 Other chronic pain; F11.20 Opioid dependence, uncomplicated; I10 Essential (primary) hypertension; Z85.9 Personal history of malignant neoplasm, unspecified
CPT/HCPCS: 99282

== ENCOUNTER 2018-10-26 20:34 | Emergency (ER) | payer MEDICAID ==
--- NOTE | 2018-10-26 21:28 | Event Note ---
ED Screening Note ED Screening Note: left sided facial edema that began two days ago denies any dental problem +subjective fever has happened once before but does not remember what it was from denies any dental issues PMHx throat cancer has a tracheostomy This initial assessment/diagnostic orders/clinical plan/treatment(s) is/are subject to change based on patients health status, clinical progression and re- assessment by fellow clinical providers in the ED. Further treatment and workup at subsequent clinical providers discretion. Patient/guardian urged not to elope from the ED as their condition may be serious if not clinically assessed and managed. Initial orders include: labs, CT face and neck with contrast
[2018-10-26] MEDS ORDERED: MORPHINE IV ONE (22:55)
--- NOTE | 2018-10-26 23:02 | Emergency Department Report ---
ED Neck Pain/Injury HPI - General Chief Complaint: Allergic Reaction Stated Complaint: FACIAL SWELLING Time Seen by Provider: 10/26/18 21:24 Mode of arrival: Ambulatory Limitations: No Limitations - History of Present Illness Initial Comments: 53-year-old male with history of laryngeal cancer s/p resection with trach in place presents to ED with left face and neck pain and swelling x 3 days. Denies fever. No recent surgery, states resection was done years ago. Pt states not currently on chemo or radiation, last chemo treatment was one month ago. Oncology: Fredo Castillo @ [place] Complaint: neck pain -: days(s) (3) Radiation: left lateral Severity: mild Quality: aching Improves With: none Worsens With: none Context: unknown Associated Symptoms: headache. denies: fever, difficulty swallowing, nausea, vomiting - Related Data Home Medications Medication Instructions Recorded Confirmed Last Taken Docusate Sodium [Colace CAP] 100 mg PO BID 10/01/15 12/22/16 04/18/16 Oxycodone HCl [Oxycontin] 10 mg PO QID PRN 10/01/15 12/22/16 04/18/16 hydroCHLOROthiazide [HCTZ] 25 mg PO QDAY 10/01/15 12/22/16 04/18/16 Potassium Chloride [K-Dur] 20 meq PO DAILY 05/21/16 12/22/16 Unknown Albuterol Sulfate [Albuterol 0.63% 0.63 mg IH Q4H PRN 12/22/16 12/22/16 Unknown NEBS] Aspirin [Aspirin TAB] 325 mg PO QDAY 12/22/16 12/22/16 Unknown Fluticasone/Salmeterol [Advair 1 puff IH BID 12/22/16 12/22/16 Unknown Diskus 250-50 mcg] Levothyroxine [Synthroid] 125 mcg PO QAM 12/22/16 12/22/16 Unknown Magnesium Oxide [Mag-Ox] 400 mg PO QDAY 12/22/16 12/22/16 Unknown Morphine Sulfate [Ms Contin] 120 mg PO Q8H PRN 12/22/16 12/22/16 Unknown Simvastatin [Zocor TAB] 40 mg PO QHS 12/22/16 12/22/16 Unknown Previous Rx's Medication Instructions Recorded Last Taken Type Ibuprofen [Motrin 800 MG tab] 800 mg PO Q8HR PRN #45 tablet 12/22/16 Unknown Rx Pantoprazole [Protonix TAB] 40 mg PO QDAY #30 tablet 12/22/16 Unknown Rx Ibuprofen [Motrin] 800 mg PO Q8HR PRN #15 tablet 01/03/17 Unknown Rx Neomy/Polymyx B/Hc (Otic) Soln 4 drops OTIC TID #1 bottle 01/03/17 Unknown Rx [Cortisporin (Otic) Soln] HYDROcodone/APAP 10-325 [[place] 1 each PO Q6HR PRN #15 tablet 01/06/17 Unknown Rx 10/325] Pregabalin [Lyrica] 50 mg PO BID #30 capsule 01/06/17 Unknown Rx Acetaminophen [Acetaminophen TAB] 500 mg PO Q6HR PRN #20 tablet 10/20/17 Unknown Rx Potassium Chloride [K-Dur] 20 meq PO QDAY #5 tablet 10/20/17 Unknown Rx Morphine ER [Ms Contin ER] 60 mg PO Q12HR PRN #10 tablet 11/21/17 Unknown Rx Naproxen [Naprosyn] 500 mg PO BID #14 tablet 04/03/18 Unknown Rx Amoxicillin/Potassium Clav 10 ml PO Q12HR #200 ml 04/16/18 Unknown Rx [Augmentin 400-57 MG / 5ml] Acetaminophen [Tylenol Arthritis] 650 mg PO Q6HR PRN #30 tablet.er 05/14/18 Unknown Rx Ibuprofen [Motrin] 600 mg PO Q8H PRN #30 tablet 05/14/18 Unknown Rx Naloxone HCl [Narcan Nasal [place]] 4 mg NS Q1HR PRN #5 spray 05/14/18 Unknown Rx Allergies Allergy/AdvReac Type Severity Reaction Status Date / Time No Known Allergies Allergy Verified 04/16/18 07:10 ED Review of Systems ROS: Stated complaint: FACIAL SWELLING Other details as noted in HPI Comment: All other systems reviewed and negative Constitutional: denies: fever Respiratory: shortness of breath Gastrointestinal: denies: nausea, vomiting Neurological: headache ED Past Medical Hx - Past Medical History Previous Medical History?: Yes Hx Hypertension: Yes Hx CVA: No Hx Heart Attack/AMI: No Hx Congestive Heart Failure: No Hx Diabetes: No Hx Deep Vein Thrombosis: Yes (left upper extremity secondary to a port) Hx Pulmonary Embolism: No Hx GERD: No Hx Liver Disease: No Hx Renal Disease: No Hx of Cancer: No Hx Sickle Cell Disease: No Hx Arthritis: No Hx Headaches / Migraines: No Hx Seizures: No Hx Kidney Stones: No Hx Psychiatric Treatment: No Hx Asthma: No Hx COPD: No Hx Dementia: No Hx HIV: No Additional medical history: throat cancer, trach placed 2012; 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 Removal of peg tube,. skin grafts, removed from left wrist and right inner thigh - Social History Smoking Status: Former Smoker Substance Use Type: None - Medications Home Medications: Home Medications Medication Instructions Recorded Confirmed Last Taken Type Docusate Sodium [Colace CAP] 100 mg PO BID 10/01/15 12/22/16 04/18/16 History Oxycodone HCl [Oxycontin] 10 mg PO QID PRN 10/01/15 12/22/16 04/18/16 History hydroCHLOROthiazide [HCTZ] 25 mg PO QDAY 10/01/15 12/22/16 04/18/16 History Potassium Chloride [K-Dur] 20 meq PO DAILY 05/21/16 12/22/16 Unknown History Albuterol Sulfate [Albuterol 0.63% 0.63 mg IH Q4H PRN 12/22/16 12/22/16 Unknown History NEBS] Aspirin [Aspirin TAB] 325 mg PO QDAY 12/22/16 12/22/16 Unknown History Fluticasone/Salmeterol [Advair 1 puff IH BID 12/22/16 12/22/16 Unknown History Diskus 250-50 mcg] Ibuprofen [Motrin 800 MG tab] 800 mg PO Q8HR PRN #45 tablet 12/22/16 Unknown Rx Levothyroxine [Synthroid] 125 mcg PO QAM 12/22/16 12/22/16 Unknown History Magnesium Oxide [Mag-Ox] 400 mg PO QDAY 12/22/16 12/22/16 Unknown History Morphine Sulfate [Ms Contin] 120 mg PO Q8H PRN 12/22/16 12/22/16 Unknown History Pantoprazole [Protonix TAB] 40 mg PO QDAY #30 tablet 12/22/16 Unknown Rx Simvastatin [Zocor TAB] 40 mg PO QHS 12/22/16 12/22/16 Unknown History Ibuprofen [Motrin] 800 mg PO Q8HR PRN #15 tablet 01/03/17 Unknown Rx Neomy/Polymyx B/Hc (Otic) Soln 4 drops OTIC TID #1 bottle 01/03/17 Unknown Rx [Cortisporin (Otic) Soln] HYDROcodone/APAP 10-325 [[place] 1 each PO Q6HR PRN #15 tablet 01/06/17 Unknown Rx 10/325] Pregabalin [Lyrica] 50 mg PO BID #30 capsule 01/06/17 Unknown Rx Acetaminophen [Acetaminophen TAB] 500 mg PO Q6HR PRN #20 tablet 10/20/17 U nknown Rx Potassium Chloride [K-Dur] 20 meq PO QDAY #5 tablet 10/20/17 Unknown Rx Morphine ER [Ms Contin ER] 60 mg PO Q12HR PRN #10 tablet 11/21/17 Unknown Rx Naproxen [Naprosyn] 500 mg PO BID #14 tablet 04/03/18 Unknown Rx Amoxicillin/Potassium Clav 10 ml PO Q12HR #200 ml 04/16/18 Unknown Rx [Augmentin 400-57 MG / 5ml] Acetaminophen [Tylenol Arthritis] 650 mg PO Q6HR PRN #30 tablet.er 05/14/18 Unknown Rx Ibuprofen [Motrin] 600 mg PO Q8H PRN #30 tablet 05/14/18 Unknown Rx Naloxone HCl [Narcan Nasal [place]] 4 mg NS Q1HR PRN #5 spray 05/14/18 Unknown Rx ED Physical Exam - General Limitations: No Limitations General appearance: alert, in no apparent distress, other (nontoxic-appearing) - Head Head exam: Present: atraumatic, normocephalic - Eye Eye exam: Present: normal appearance, PERRL, EOMI - ENT ENT exam: Present: mucous membranes moist - Neck Neck exam: Present: other (trach in place; s/p resection; mild swelling to left lateral and posterolateral neck; tender to palpation; no erythema) - Respiratory Respiratory exam: Present: normal lung sounds bilaterally. Absent: respiratory distress - Cardiovascular Cardiovascular Exam: Present: regular rate, normal rhythm - GI/Abdominal GI/Abdominal exam: Absent: distended - Extremities Exam Extremities exam: Present: normal inspection - Neurological Exam Neurological exam: Present: alert, oriented X3 - Psychiatric Psychiatric exam: Present: normal affect, normal mood - Skin Skin exam: Present: warm, dry, intact, normal color ED Course Vital Signs 10/26/18 10/26/18 10/26/18 21:10 21:25 22:56 Temperature 98.5 F 98.1 F Pulse Rate 73 74 Respiratory 22 20 Rate Blood Pressure 140/83 135/85 Blood Pressure 135/85 [Right] O2 Sat by Pulse 98 98 99 Oximetry 10/26/18 10/26/18 10/26/18 23:00 23:15 23:17 Temperature Pulse Rate Respiratory Rate Blood Pressure 140/83 140/83 140/83 Blood Pressure [Right] O2 Sat by Pulse 98 100 99 Oximetry 10/26/18 10/26/18 10/27/18 23:30 23:45 00:02 Temperature Pulse Rate Respiratory Rate Blood Pressure 144/82 144/82 140/83 Blood Pressure [Right] O2 Sat by Pulse 98 98 84 Oximetry 10/27/18 10/27/18 10/27/18 00:16 01:49 03:32 Temperature Pulse Rate 98 H Respiratory 17 Rate Blood Pressure 140/83 140/83 Blood Pressure 140/81 [Right] O2 Sat by Pulse 83 L 75 L 98 Oximetry 10/27/18 10/27/18 05:06 05:22 Temperature Pulse Rate Respiratory Rate Blood Pressure 156/75 Blood Pressure [Right] O2 Sat by Pulse 96 Oximetry - Consultations Consultation #1: 10/27/18 03:36 [place] transfer line contacted to get in touch with oncology. 10/27/18 04:[address] Gregg, oncologist. States pt had similar CT findings on 10/04/18 showing this mass w/ destruction of C1 and the skull base. Pt had f/u appt w/ his oncologist Dr Castillo on 10/09/18, results and palliative care vs hospice were discussed. However, since pt is having new and worsening pain, would like pt transferred to [facility]. Hospitalist will need to accept and oncology will consult. 10/27/18 05:38 Spoke w/ hospitalist, Dr Moreira. Accepts transfer. ED Medical Decision Making - Lab Data Result diagrams: 10/26/18 23:45 10/26/18 23:45 - Radiology Data Radiology results: report reviewed, image reviewed - Medical Decision Making 53-year-old male with history of laryngeal cancer s/p resection with trach in place presents to ED with left face and neck pain and swelling x [address] Gregg, oncologist. Pt had similar CT findings on 10/04/18 showing this mass w/ destruction of C1 and the skull base. Pt had f/u appt w/ his oncologist Dr Castillo on 10/09/18, results and palliative care vs hospice were discussed. However, since pt is having new and worsening pain, would like pt transferred to [facility]. Patient accepted by Dr Moreira, hospitalist. - Differential Diagnosis cellulitis, abscess, mass Critical care attestation.: If time is entered above; I have spent that time in minutes in the direct care of this critically ill patient, excluding procedure time. ED Disposition Clinical Impression: Parotid mass, Neck swelling, Neck pain, History of laryngeal cancer, Hypokalemia Disposition: DC/[place]-70 ANOTHER TYPE HLTHCARE Is pt being admited?: No Condition: Stable Referrals: CAITLYN CENTENO MD [Primary Care Provider] - 3-5 Days Time of Disposition: 05:38
[2018-10-26 23:55] LABS: Basophils # (Auto) 0.1 K/mm3 (0.0-0.1); Basophils % (Auto) 0.9 % (0.0-1.8); Eosinophils # (Auto) 0.3 K/mm3 (0.0-0.4); Eosinophils % (Auto) 4.6 % (0.0-4.3); Hematocrit 28.3 % (35.5-45.6); Hemoglobin 9.6 gm/dl (11.8-15.2); Lymphocytes # (Auto) 1.2 K/mm3 (1.2-5.4); Lymphocytes % (Auto) 18.9 % (13.4-35.0); Mean Corpuscular HGB Conc 34 % (32-34); Mean Corpuscular Volume 86 fl (84-94); Monocytes # (Auto) 0.9 K/mm3 (0.0-0.8); Monocytes % (Auto) 14.3 % (0.0-7.3); Platelet Count 427 K/mm3 (140-440); Red Cell Distribution Width 15.5 % (13.2-15.2)
[2018-10-27 00:30] LABS: BUN/Creatinine Ratio 10; Blood Urea Nitrogen 10 mg/dL (9-20); Calcium 9.1 mg/dL (8.4-10.2); Hemolysis Index 6
[2018-10-27] MEDS ORDERED: MORPHINE ONE (02:16)
[2018-10-27] MEDS ORDERED: MORPHINE IV ONE (02:18)
--- NOTE | 2018-10-27 03:21 | Cat Scan Report ---
CT NECK WITH INTRAVENOUS CONTRAST AND MULTIPLANAR RECONSTRUCTION CLINICAL HISTORY: left sided neck and facial edema, hx throat CA TECHNIQUE: 2.5 mm thick contiguous axial scans were obtained from the skull base down to the aortic arch during intravenous contrast administration. In addition to evaluation of axial source images sagittal and co jeremy multiplanar reconstructions were produced and reviewed for this report. Comparison THE colon CT neck 04/18/2016. FINDINGS: There is a large mass which appears to be centered in the left parotid space. This infiltrative ill-d efined lesion measures about 4.7 x 5.9 cm in transverse dimension by 5 cm in superior-inferior dimens ion. There is direct invasion of the adjacent C1 vertebrae with destruction of the left lateral mass of C1 there is invasion of the skull base with destruction of the left occipital condyle, portions of the left lateral aspect of the clivus and adjacent petrous bone. There is destruction of the rim of the foramen magnum between the 1:00 and 3:00 positions. Intracranial extension of disease is present in this location without compression of the spinal cord or medulla. There is medial extension into th e prevertebral musculature. 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 There is a 2.3 x 2.1 x 2.4 cm mass in left level 1B which may represents a necrotic lymph node or abn ormal left submandibular salivary gland. The right parotid gland has an unremarkable appearance. The right submandibular salivary gland is not identified and may be surgically absent. Evaluation of the floor the mouth reveals asymmetrical appearance with thickening of the mylohyoid mu scle adjacent to the left body of the mandible. This finding is stable. Evaluation of the tongue is r emarkable for fatty replacement of the left side of the tongue which has developed since previous kaley dy. This is likely related to involvement of the hypoglossal nerve by the patient's large left paroti d space/skull base tumor. Extensive infiltrative changes are seen in the subcutaneous and deep fat of the left suprahyoid neck extending up into the cheek. There is marked thickening of the left platysma muscle. These findings h ave developed since previous study. Differential diagnosis could include cellulitis, venous congestio n secondary to recurrent malignancy, post radiation therapy change versus infiltrative tumor. There i s no indication of abscess. Patient is status post laryngectomy and bilateral radical lymph node dissection. Surgical clips are s een in the right and left neck secondary to prior surgery. A tracheostomy tube is in satisfactory pos ition. Evaluation of the nasal cavity reveals no abnormality. Evaluation of the paranasal sinuses reveals mi ld circumferential mucosal thickening at the base of both maxillary sinuses and inflammatory disease in ethmoid air cells bilaterally. Sphenoid sinuses are clear. Frontal sinuses are largely excluded fr om this examination. Mastoid air cells are opacified on the left probably related to eustachian tube obstruction by the patient's large left parotid space tumor. Evaluation of the orbits a reveals no ab normality. The thyroid gland is normal in size and homogeneous in attenuation. No focal thyroid lesions are iden tified. Evaluation of the cervical spine reveals no abnormality. Normal alignment is maintained. No significa nt degenerative changes are identified. Evaluation of the lung apices reveals no abnormality. There is no indication of lung nodule or infilt rate. The visualized portions of the superior mediastinum have an unremarkable appearance. Enhancement of normal vascular structures is demonstrated. Right internal jugular central venous cath eter is present. The catheter tip is not included on this study. IMPRESSION: 1. There is a large ill-defined mass in the left parotid space with invasion of the C1 vertebral body and adjacent skull base as described in detail above. 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 2. Extensive infiltrative changes in the subcutaneous fat of the left suprahyoid neck and cheek and t hickening of the left platysma muscle as described above. While this could represent cellulitis there is no indication of abscess. Differential diagnosis is considered above. All CT imaging studies performed at this facility utilize dose modulation, iterative reconstruction o r weight based dosing, if appropriate, to obtain the lowest achievable radiation dose. Signer Name: Romero Apodaca MD Signed: 10/27/2018 3:17 AM Workstation Name: [id number]
[2018-10-27] MEDS ORDERED: K-DUR PO ONE (04:16)
[2018-10-27] MEDS ORDERED: PERCOCET 5/325 PO ONE (05:53)
[2018-10-27 06:41] VITALS: BP 147/82
== END 2018-10-27 07:20 | disposition other institution (70) ==
LOC: ED 20:34
DX: K11.8 Other diseases of salivary glands (principal); E87.6 Hypokalemia; I10 Essential (primary) hypertension; Z85.21 Personal history of malignant neoplasm of larynx; Z86.718 Personal history of other venous thrombosis and embolism; Z87.891 Personal history of nicotine dependence; Z85.818 Personal history of malignant neoplasm of other sites of lip, oral cavity, and pharynx; Z93.0 Tracheostomy status; Z98.890 Other specified postprocedural states; Z79.899 Other long term (current) drug therapy
CPT/HCPCS: 36415; 70491; 80048; 85025; 96374; 96376; 99285; J2270; Q9967

== ENCOUNTER 2018-12-19 09:29 | Emergency (ER) | payer MEDICAID ==
[2018-12-19] MEDS ORDERED: ATROVENT IH ONE (10:31)
[2018-12-19] MEDS ORDERED: PROVENTIL IH ONE (10:31)
--- NOTE | 2018-12-19 10:36 | Emergency Department Report ---
HPI - General Chief Complaint: Dyspnea/Respdistress Time Seen by Provider: 12/19/18 09:34 - HPI HPI: Room 5 The patient is a 53-year-old male presenting with chief complaint of shortness of breath. The patient states he developed shortness of breath for 1 day. Patient is an occasional cough that is occasionally productive of sputum. Patient denies chest pain or fever. Patient has a history of piriformis cancer status post tracheostomy and has had swelling to the left face since October 2018. Patient is not currently undergoing chemotherapy or radiation ED Past Medical Hx - Past Medical History Hx Hypertension: Yes Hx Deep Vein Thrombosis: Yes (left upper extremity secondary to a port) Additional medical history: throat cancer, trach placed 2012; 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 Removal of peg tube,. skin grafts, removed from left wrist and right inner thigh - Family History Family history: no significant - Social History Smoking Status: Never Smoker Substance Use Type: None - Medications Home Medications: Home Medications Medication Instructions Recorded Confirmed Last Taken Type Docusate Sodium [Colace CAP] 100 mg PO BID 10/01/15 12/22/16 04/18/16 History Oxycodone HCl [Oxycontin] 10 mg PO QID PRN 10/01/15 12/22/16 04/18/16 History hydroCHLOROthiazide [HCTZ] 25 mg PO QDAY 10/01/15 12/22/16 04/18/16 History Potassium Chloride [K-Dur] 20 meq PO DAILY 05/21/16 12/22/16 Unknown History Albuterol Sulfate [Albuterol 0.63% 0.63 mg IH Q4H PRN 12/22/16 12/22/16 Unknown History NEBS] Aspirin [Aspirin TAB] 325 mg PO QDAY 12/22/16 12/22/16 Unknown History Fluticasone/Salmeterol [Advair 1 puff IH BID 12/22/16 12/22/16 Unknown History Diskus 250-50 mcg] Ibuprofen [Motrin 800 MG tab] 800 mg PO Q8HR PRN #45 tablet 12/22/16 Unknown Rx Levothyroxine [Synthroid] 125 mcg PO QAM 12/22/16 12/22/16 Unknown History Magnesium Oxide [Mag-Ox] 400 mg PO QDAY 12/22/16 12/22/16 Unknown History Morphine Sulfate [Ms Contin] 120 mg PO Q8H PRN 12/22/16 12/22/16 Unknown History Pantoprazole [Protonix TAB] 40 mg PO QDAY #30 tablet 12/22/16 Unknown Rx Simvastatin [Zocor TAB] 40 mg PO QHS 12/22/16 12/22/16 Unknown History Ibuprofen [Motrin] 800 mg PO Q8HR PRN #15 tablet 01/03/17 Unknown Rx Neomy/Polymyx B/Hc (Otic) Soln 4 drops OTIC TID #1 bottle 01/03/17 Unknown Rx [Cortisporin (Otic) Soln] HYDROcodone/APAP 10-325 [[place] 1 each PO Q6HR PRN #15 tablet 01/06/17 Unknown Rx 10/325] Pregabalin [Lyrica] 50 mg PO BID #30 capsule 01/06/17 Unknown Rx Acetaminophen [Acetaminophen TAB] 500 mg PO Q6HR PRN #20 tablet 10/20/17 Unknown Rx Potassium Chloride [K-Dur] 20 meq PO QDAY #5 tablet 10/20/17 Unknown Rx Morphine ER [Ms Contin ER] 60 mg PO Q12HR PRN #10 tablet 11/21/17 Unknown Rx Naproxen [Naprosyn] 500 mg PO BID #14 tablet 04/03/18 Unknown Rx Amoxicillin/Potassium Clav 10 ml PO Q12HR #200 ml 04/16/18 Unknown Rx [Augmentin 400-57 MG / 5ml] Acetaminophen [Tylenol Arthritis] 650 mg PO Q6HR PRN #30 tablet.er 05/14/18 Unknown Rx Ibuprofen [Motrin] 600 mg PO Q8H PRN #30 tablet 05/14/18 Unknown Rx Naloxone HCl [Narcan Nasal [employer]] 4 mg NS Q1HR PRN #5 spray 05/14/18 Unknown Rx Azithromycin [Zithromax Z-FLIP] 0 mg PO DAILY #6 tab 12/19/18 Unknown Rx Prednisone [predniSONE 10 mg 10 mg PO .TAPER #1 tab.ds.pk 12/19/18 Unknown Rx (6-Day Pack, 21 Tabs)] ED Review of Systems ROS: Stated complaint: YOSVANY Other details as noted in HPI Constitutional: denies: fever Respiratory: cough, shortness of breath Cardiovascular: denies: chest pain Endocrine: no symptoms reported Gastrointestinal: denies: abdominal pain Genitourinary: denies: dysuria Musculoskeletal: denies: back pain Neurological: denies: headache Physical Exam - Physical Exam Vital Signs: Vital Signs 12/19/18 12/19/18 12/19/18 09:54 09:56 09:57 Temperature 98.7 F 98.7 F Pulse Rate 80 80 Respiratory 15 15 15 Rate Blood Pressure 139/98 Blood Pressure 139/98 [Left] O2 Sat by Pulse 95 95 95 Oximetry Physical Exam: GENERAL: The patient is well-developed well-nourished male lying on stretcher not appearing to be in acute distress obvious left facial swelling. [] HEENT: Normocephalic. Atraumatic. Extraocular motions are intact. Left facial swelling NECK: Supple. Firmness to the left jaw swelling. No stridor CHEST/LUNGS: Clear to auscultation. There is no respiratory distress noted. HEART/CARDIOVASCULAR: Regular. There is no tachycardia. There is no gallop rub or murmur. ABDOMEN: Abdomen is soft, nontender. Patient has normal bowel sounds. There is no abdominal distention. SKIN: There is no rash. There is no edema. There is no diaphoresis. NEURO: The patient is awake, alert, and oriented. The patient is cooperative. The patient has normal speech MUSCULOSKELETAL: There is no evidence of acute injury. ED Course Vital Signs 12/19/18 12/19/18 12/19/18 09:54 09:56 09:57 Temperature 98.7 F 98.7 F Pulse Rate 80 80 Respiratory 15 15 15 Rate Blood Pressure 139/98 Blood Pressure 139/98 [Left] O2 Sat by Pulse 95 95 95 Oximetry - Reevaluation(s) Reevaluation #1: 12/19/18 16:13 Patient says he feels improved and his breathing is normal. ED Medical Decision Making - Lab Data Result diagrams: 12/19/18 12:41 12/19/18 12:41 Laboratory Tests 12/19/18 12/19/18 12/19/18 12:41 12:41 12:41 WBC 7.7 RBC 4.25 Hgb 11.7 L Hct 35.2 L MCV 83 L MCH 27 L MCHC 33 RDW 15.4 H Plt Count 426 Lymph % (Auto) 10.8 L [place] % (Auto) 7.4 H Eos % (Auto) 0.6 Baso % (Auto) 0.4 Lymph # 0.8 L [place] # 0.6 Eos # 0.0 Baso # 0.0 Seg Neutrophils % 80.8 H Seg Neutrophils # 6.2 PT 13.3 INR 1.04 APTT 43.0 H Sodium 135 L Potassium 3.8 Chloride 90.2 L Carbon Dioxide 33 H Anion Gap 16 BUN 11 Creatinine 0.9 Estimated GFR > 60 BUN/Creatinine Ratio 12 Glucose 99 Calcium 10.3 H Total Bilirubin 0.60 AST 21 ALT 12 Alkaline Phosphatase 99 Total Creatine Kinase 112 CK-MB (CK-2) 1.5 CK-MB (CK-2) Rel Index 1.3 Troponin T < 0.010 Total Protein 8.1 Albumin 4.5 Albumin/Globulin Ratio 1.3 - Radiology Data Radiology results: report reviewed (CT chest, CT neck), image reviewed (CT chest, CT neck) [facility] [address] [place] [address] Cat Scan Report Signed Patient: ORLIN MERIDA MR#: [id number] : 1965 Acct:[id number] Age/Sex: 53 / M ADM Date: 12/19/18 Loc: ED Attending Dr: Ordering Physician: JOHN KLINE MD Date of Service: 12/19/18 Procedure(s): CT angio chest Accession Number(s): [id number] cc: JOHN KLINE MD CTA CHEST WITH CONTRAST INDICATION : shortness of breath. TECHNIQUE: Axial imaging performed through the chest, with contrast bolus timing set to maximize opacification of the pulmonary arteries. Sagittal and coronal reformatted images. 3-plane MIP reformatted images were obtained. All CT scans at this location are performed using CT dose reduction for ALARA by means of automated exposure control. 100 mL of intravenous contrast administered. COMPARISON: No relevant comparison FINDINGS: Bolus: Contrast bolus timing is adequate. PTE: No filling defect is present to suggest PTE. Mediastinum: Heart and great vessels appear normal. No pathologic mediastinal adenopathy. An endotracheal tube appears in good position. Lungs: Lungs are clear. Bones: Degenerative changes in the spine with nothing acute. Upper abdomen: Limited imaging of the upper abdomen shows nothing acute. IMPRESSION: Negative for PTE. Clear lungs. Signer Name: Jesse Velez Jr, MD Signed: 12/19/2018 3:33 PM Workstation Name: [id number] Transcribed By: TTR Dictated By: JESSE VELEZ JR, MD Electronically Authenticated By: JESSE VELEZ JR, MD Signed Date/Time: 12/19/18 1533 DD/ 1529 TD/TT: [facility] [address] [place] [address] Cat Scan Report Signed Patient: ORLIN MERIDA MR#: [id number] : 1965 Acct:[id number] Age/Sex: 53 / M ADM Date: 12/19/18 Loc: ED Attending Dr: Ordering Physician: JOHN KLINE MD Date of Service: 12/19/18 Procedure(s): CT neck w con Accession Number(s): [id number] cc: JOHN KLINE MD CT NECK WITH INTRAVENOUS CONTRAST AND MULTIPLANAR RECONSTRUCTION CLINICAL HISTORY: recurrent laryngeal CA COMPARISON STUDY: CT neck 12/02/2018, 10/27/2018 and 04/29/2018 TECHNIQUE: 3.75 mm thick contiguous axial scans were obtained from the skull base down to the aortic arch during intravenous contrast administration. In addition to evaluation of axial source images sagitt al and coronal multiplanar reconstructions were produced and reviewed for this report. FINDINGS: Again demonstrated is evidence of metastatic disease in the parapharyngeal space, deep parotid space extending up into the skull base. Extensive skull base destruction by tumor is again demonstrated. There is invasion and destruction of the left lateral mass of the C1 vertebrae. Extension of disease is observed into the spinal canal at the craniocervical junction. There is extension of disease into the left sphenoid sinus. These findings are not significantly changed since recent study 12/02/2018. There is an absence of perceptible contrast enhancement along the course of the left internal carotid artery which is encased by tumor. Decreased contrast enhancement is observed in the cavernous and supraclinoid segments of the left internal carotid artery in comparison to recent previous study. This could be secondary to suboptimal contrast bolus or decreased flow in the left internal carotid artery secondary to tumor encasement or occlusion. Postoperative changes status post laryngectomy are again demonstrated. Tracheostomy catheter is present in satisfactory position. Fatty replacement of the left side of the tongue is again demonstrated. Extensive subcutaneous edema is seen in the cheek and suprahyoid neck. This is unchanged. Inflammatory disease is present in the paranasal sinuses with bilateral maxillary sinus air-fluid levels and opacification multiple ethmoid air cells bilaterally. Similar findings were present on previous study. Note is made of a right chest wall Port-A-Cath. The catheter tip is not included on this study. IMPRESSION: Persistent recurrent or metastatic tumor with extensive involvement of the skull base and C1 vertebral body. There is decreased visualization of the left internal carotid artery which is encased by tumor in comparison to recent previous study. Findings are otherwise not significantly changed in comparison to recent previous study dated 12/02/2018. Contrast dose report: Isovue 350:100 mL administered intravenously. All CT imaging studies performed at this facility utilize dose modulation, iterative reconstruction or weight based dosing, if appropriate, to obtain the lowest achievable radiation dose. Signer Name: Romero Apodaca MD Signed: 12/19/2018 3:52 PM Workstation Name: [id number] Transcribed By: Dictated By: Romero Apodaca MD Electronically Authenticated By: Romero Apodaca MD Signed Date/Time: 12/19/18 1552 DD/ 1532 TD/TT: - Differential Diagnosis bronchitis, pneumonia, PE Critical care attestation.: If time is entered above; I have spent that time in minutes in the direct care of this critically ill patient, excluding procedure time. ED Disposition Clinical Impression: Bronchitis, Shortness of breath Disposition: DC-01 TO HOME OR SELFCARE Is pt being admited?: No Does the pt Need Aspirin: No Condition: Stable Instructions: Chronic Bronchitis (ED) Additional Instructions: Return to the emergency department should you develop worsening symptoms, inability to tolerate food or liquids, high fever or any other concerns Prescriptions: Prednisone [predniSONE 10 mg (6-Day Pack, 21 Tabs)] 10 mg PO .TAPER #1 tab.ds.pk Azithromycin [Zithromax Z-FLIP] 0 mg PO DAILY #6 tab Referrals: WESTON SOSA MD [Primary Care Provider] - 3-[address] Zohaib Cain [place] [Other] - 3-5 Days Time of Disposition: 16:09
[2018-12-19 13:02] LABS: INR 1.04 (0.87-1.13)
[2018-12-19 13:06] LABS: Basophils % (Auto) 0.4 % (0.0-1.8); Eosinophils % (Auto) 0.6 % (0.0-4.3); Hematocrit 35.2 % (35.5-45.6); Hemoglobin 11.7 gm/dl (11.8-15.2); Lymphocytes # (Auto) 0.8 K/mm3 (1.2-5.4); Lymphocytes % (Auto) 10.8 % (13.4-35.0); Mean Corpuscular HGB Conc 33 % (32-34); Mean Corpuscular Volume 83 fl (84-94); Monocytes # (Auto) 0.6 K/mm3 (0.0-0.8); Monocytes % (Auto) 7.4 % (0.0-7.3); Platelet Count 426 K/mm3 (140-440); Red Blood Count 4.25 M/mm3 (3.65-5.03); Red Cell Distribution Width 15.4 % (13.2-15.2)
[2018-12-19 13:07] LABS: Creatine Kinase MB 1.5 ng/mL (0.0-4.0)
[2018-12-19 13:09] LABS: Alanine Aminotransferase 12 units/L (7-56); Albumin 4.5 g/dL (3.9-5); BUN/Creatinine Ratio 12; Blood Urea Nitrogen 11 mg/dL (9-20); Calcium 10.3 mg/dL (8.4-10.2); Hemolysis Index 0
--- NOTE | 2018-12-19 15:37 | Cat Scan Report ---
CTA CHEST WITH CONTRAST INDICATION : shortness of breath. TECHNIQUE: Axial imaging performed through the chest, with contrast bolus timing set to maximize opa cification of the pulmonary arteries. Sagittal and coronal reformatted images. 3-plane MIP reformatte d images were obtained. All CT scans at this location are performed using CT dose reduction for ALAR A by means of automated exposure control. 100 mL of intravenous contrast administered. COMPARISON: No relevant comparison FINDINGS: Bolus: Contrast bolus timing is adequate. PTE: No filling defect is present to suggest PTE. Mediastinum: Heart and great vessels appear normal. No pathologic mediastinal adenopathy. An endotr acheal tube appears in good position. Lungs: Lungs are clear. Bones: Degenerative changes in the spine with nothing acute. Upper abdomen: Limited imaging of the upper abdomen shows nothing acute. IMPRESSION: Negative for PTE. Clear lungs. Signer Name: Jesse Vleez Jr, MD Signed: 12/19/2018 3:33 PM Workstation Name: [id number]
--- NOTE | 2018-12-19 15:56 | Cat Scan Report ---
CT NECK WITH INTRAVENOUS CONTRAST AND MULTIPLANAR RECONSTRUCTION CLINICAL HISTORY: recurrent laryngeal CA COMPARISON STUDY: CT neck 12/02/2018, 10/27/2018 and 04/29/2018 TECHNIQUE: 3.75 mm thick contiguous axial scans were obtained from the skull base down to the aortic arch during intravenous contrast administration. In addition to evaluation of axial source images sagittal and c oronal multiplanar reconstructions were produced and reviewed for this report. FINDINGS: Again demonstrated is evidence of metastatic disease in the parapharyngeal space, deep parotid space extending up into the skull base. Extensive skull base destruction by tumor is again demonstrated. Th ere is invasion and destruction of the left lateral mass of the C1 vertebrae. Extension of disease is observed into the spinal canal at the craniocervical junction. There is extension of disease into th e left sphenoid sinus. These findings are not significantly changed since recent study 12/02/2018. The re is an absence of perceptible contrast enhancement along the course of the left internal carotid ar birdie which is encased by tumor. Decreased contrast enhancement is observed in the cavernous and supra clinoid segments of the left internal carotid artery in comparison to recent previous study. This cou ld be secondary to suboptimal contrast bolus or decreased flow in the left internal carotid artery se condary to tumor encasement or occlusion. Postoperative changes status post laryngectomy are again demonstrated. Tracheostomy catheter is prese nt in satisfactory position. Fatty replacement of the left side of the tongue is again demonstrated. Extensive subcutaneous edema is seen in the cheek and suprahyoid neck. This is unchanged. Inflammatory disease is present in the paranasal sinuses with bilateral maxillary sinus air-fluid lev els and opacification multiple ethmoid air cells bilaterally. Similar findings were present on previo us study. Note is made of a right chest wall Port-A-Cath. The catheter tip is not included on this study. IMPRESSION: Persistent recurrent or metastatic tumor with extensive involvement of the skull base and C1 vertebra l body. There is decreased visualization of the left internal carotid artery which is encased by tumo r in comparison to recent previous study. Findings are otherwise not significantly changed in compari son to recent previous study dated 12/02/2018. Contrast dose report: Isovue 350:100 mL administered intravenously. All CT imaging studies performed at this facility utilize dose modulation, iterative reconstruction o r weight based dosing, if appropriate, to obtain the lowest achievable radiation dose. Signer Name: Romero Apodaca MD Signed: 12/19/2018 3:52 PM Workstation Name: [id number]
[2018-12-19 16:57] VITALS: BP 167/93
== END 2018-12-19 17:59 | disposition home or self-care (01) ==
LOC: ED 09:29
DX: J40 Bronchitis, not specified as acute or chronic (principal); I10 Essential (primary) hypertension; Z98.890 Other specified postprocedural states; Z79.82 Long term (current) use of aspirin; Z79.899 Other long term (current) drug therapy
CPT/HCPCS: 36415; 70491; 71275; 80053; 82550; 82553; 84484; 85025; 85610; 85730; 94640; 99284; Q9967; 94644

== ENCOUNTER 2019-01-19 16:36 | Emergency (ER) | payer MEDICAID ==
[2019-01-19] MEDS ORDERED: HYDROmorphone 1 MG/1 ML INJ IV ONE (18:52)
--- NOTE | 2019-01-19 19:12 | Emergency Department Report ---
ED General Adult HPI - General Chief complaint: Dyspnea/Respdistress Stated complaint: YOSVANY Time Seen by Provider: 01/19/19 18:28 Source: patient, family, EMS Mode of arrival: Stretcher Limitations: Other - History of Present Illness Initial comments: 53-year-old male with history of laryngeal cancer, lymphedema face presents to ED with exacerbation of his chronic face and neck pain. Patient is currently under hospice care, has Dilaudid pump that administers 2 mg of Dilaudid every hour. Family at bedside. Patient denies any difficulty breathing, reports only exacerbation of pain. Sister states his pump ran out of Dilaudid earlier in the day, however the company came out and replaced the medication. -: This afternoon Location: face, neck Consistency: constant Improves with: none Worsens with: none Associated Symptoms: denies other symptoms. denies: shortness of breath - Related Data Home Medications Medication Instructions Recorded Confirmed Last Taken Docusate Sodium [Colace CAP] 100 mg PO BID 10/01/15 12/22/16 04/18/16 Oxycodone HCl [Oxycontin] 10 mg PO QID PRN 10/01/15 12/22/16 04/18/16 hydroCHLOROthiazide [HCTZ] 25 mg PO QDAY 10/01/15 12/22/16 04/18/16 Potassium Chloride [K-Dur] 20 meq PO DAILY 05/21/16 12/22/16 Unknown Albuterol Sulfate [Albuterol 0.63% 0.63 mg IH Q4H PRN 12/22/16 12/22/16 Unknown NEBS] Aspirin [Aspirin TAB] 325 mg PO QDAY 12/22/16 12/22/16 Unknown Fluticasone/Salmeterol [Advair 1 puff IH BID 12/22/16 12/22/16 Unknown Diskus 250-50 mcg] Levothyroxine [Synthroid] 125 mcg PO QAM 12/22/16 12/22/16 Unknown Magnesium Oxide [Mag-Ox] 400 mg PO QDAY 12/22/16 12/22/16 Unknown Morphine Sulfate [Ms Contin] 120 mg PO Q8H PRN 12/22/16 12/22/16 Unknown Simvastatin [Zocor TAB] 40 mg PO QHS 12/22/16 12/22/16 Unknown Previous Rx's Medication Instructions Recorded Last Taken Type Ibuprofen [Motrin 800 MG tab] 800 mg PO Q8HR PRN #45 tablet 12/22/16 Unknown Rx Pantoprazole [Protonix TAB] 40 mg PO QDAY #30 tablet 12/22/16 Unknown Rx Ibuprofen [Motrin] 800 mg PO Q8HR PRN #15 tablet 01/03/17 Unknown Rx Neomy/Polymyx B/Hc (Otic) Soln 4 drops OTIC TID #1 bottle 01/03/17 Unknown Rx [Cortisporin (Otic) Soln] HYDROcodone/APAP 10-325 [[place] 1 each PO Q6HR PRN #15 tablet 01/06/17 Unknown Rx 10/325] Pregabalin [Lyrica] 50 mg PO BID #30 capsule 01/06/17 Unknown Rx Acetaminophen [Acetaminophen TAB] 500 mg PO Q6HR PRN #20 tablet 10/20/17 Unknown Rx Potassium Chloride [K-Dur] 20 meq PO QDAY #5 tablet 10/20/17 Unknown Rx Morphine ER [Ms Contin ER] 60 mg PO Q12HR PRN #10 tablet 11/21/17 Unknown Rx Naproxen [Naprosyn] 500 mg PO BID #14 tablet 04/03/18 Unknown Rx Amoxicillin/Potassium Clav 10 ml PO Q12HR #200 ml 04/16/18 Unknown Rx [Augmentin 400-57 MG / 5ml] Acetaminophen [Tylenol Arthritis] 650 mg PO Q6HR PRN #30 tablet.er 05/14/18 Unknown Rx Ibuprofen [Motrin] 600 mg PO Q8H PRN #30 tablet 05/14/18 Unknown Rx Naloxone HCl [Narcan Nasal [place]] 4 mg NS Q1HR PRN #5 spray 05/14/18 Unknown Rx Azithromycin [Zithromax Z-FLIP] 0 mg PO DAILY #6 tab 12/19/18 Unknown Rx Prednisone [predniSONE 10 mg 10 mg PO .TAPER #1 tab.ds.pk 12/19/18 Unknown Rx (6-Day Pack, 21 Tabs)] Allergies Allergy/AdvReac Type Severity Reaction Status Date / Time No Known Allergies Allergy Verified 01/19/19 16:49 ED Review of Systems ROS: Stated complaint: YOSVANY Other details as noted in HPI Comment: All other systems reviewed and negative Constitutional: denies: fever Respiratory: denies: shortness of breath ED Past Medical Hx - Past Medical History Previous Medical History?: Yes Hx Hypertension: Yes Hx CVA: No Hx Heart Attack/AMI: No Hx Congestive Heart Failure: No Hx Diabetes: No Hx Deep Vein Thrombosis: Yes (left upper extremity secondary to a port) Hx Pulmonary Embolism: No Hx GERD: No Hx Liver Disease: No Hx Renal Disease: No Hx Sickle Cell Disease: No Hx Arthritis: No Hx Headaches / Migraines: No Hx Seizures: No Hx Kidney Stones: No Hx Psychiatric Treatment: No Hx Asthma: No Hx COPD: No Hx Dementia: No Hx HIV: No Additional medical history: throat cancer, trach placed 2012; 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 Removal of peg tube,. skin grafts, removed from left wrist and right inner thigh - Social History Smoking Status: Never Smoker Substance Use Type: None - Medications Home Medications: Home Medications Medication Instructions Recorded Confirmed Last Taken Type Docusate Sodium [Colace CAP] 100 mg PO BID 10/01/15 12/22/16 04/18/16 History Oxycodone HCl [Oxycontin] 10 mg PO QID PRN 10/01/15 12/22/16 04/18/16 History hydroCHLOROthiazide [HCTZ] 25 mg PO QDAY 10/01/15 12/22/16 04/18/16 History Potassium Chloride [K-Dur] 20 meq PO DAILY 05/21/16 12/22/16 Unknown History Albuterol Sulfate [Albuterol 0.63% 0.63 mg IH Q4H PRN 12/22/16 12/22/16 Unknown History NEBS] Aspirin [Aspirin TAB] 325 mg PO QDAY 12/22/16 12/22/16 Unknown History Fluticasone/Salmeterol [Advair 1 puff IH BID 12/22/16 12/22/16 Unknown History Diskus 250-50 mcg] Ibuprofen [Motrin 800 MG tab] 800 mg PO Q8HR PRN #45 tablet 12/22/16 Unknown Rx Levothyroxine [Synthroid] 125 mcg PO QAM 12/22/16 12/22/16 Unknown History Magnesium Oxide [Mag-Ox] 400 mg PO QDAY 12/22/16 12/22/16 Unknown History Morphine Sulfate [Ms Contin] 120 mg PO Q8H PRN 12/22/16 12/22/16 Unknown History Pantoprazole [Protonix TAB] 40 mg PO QDAY #30 tablet 12/22/16 Unknown Rx Simvastatin [Zocor TAB] 40 mg PO QHS 12/22/16 12/22/16 Unknown History Ibuprofen [Motrin] 800 mg PO Q8HR PRN #15 tablet 01/03/17 Unknown Rx Neomy/Polymyx B/Hc (Otic) Soln 4 drops OTIC TID #1 bottle 01/03/17 Unknown Rx [Cortisporin (Otic) Soln] HYDROcodone/APAP 10-325 [[place] 1 each PO Q6HR PRN #15 tablet 01/06/17 Unknown Rx 10/325] Pregabalin [Lyrica] 50 mg PO BID #30 capsule 01/06/17 Unknown Rx Acetaminophen [Acetaminophen TAB] 500 mg PO Q6HR PRN #20 tablet 10/20/17 Unknown Rx Potassium Chloride [K-Dur] 20 meq PO QDAY #5 tablet 10/20/17 Unknown Rx Morphine ER [Ms Contin ER] 60 mg PO Q12HR PRN #10 tablet 11/21/17 Unknown Rx Naproxen [Naprosyn] 500 mg PO BID #14 tablet 04/03/18 Unknown Rx Amoxicillin/Potassium Clav 10 ml PO Q12HR #200 ml 04/16/18 Unknown Rx [Augmentin 400-57 MG / 5ml] Acetaminophen [Tylenol Arthritis] 650 mg PO Q6HR PRN #30 tablet.er 05/14/18 Unknown Rx Ibuprofen [Motrin] 600 mg PO Q8H PRN #30 tablet 05/14/18 Unknown Rx Naloxone HCl [Narcan Nasal [place]] 4 mg NS Q1HR PRN #5 spray 05/14/18 Unknown Rx Azithromycin [Zithromax Z-FLIP] 0 mg PO DAILY #6 tab 12/19/18 Unknown Rx Prednisone [predniSONE 10 mg 10 mg PO .TAPER #1 tab.ds.pk 12/19/18 Unknown Rx (6-Day Pack, 21 Tabs)] ED Physical Exam - General Limitations: Other General appearance: alert, in no apparent distress, cachectic - Head Head exam: Present: other (moderate swelling present to the left face (baseline per family)) - Eye Eye exam: Present: normal appearance - ENT ENT exam: Present: mucous membranes moist - Neck Neck exam: Present: other (tracheostomy tube in place) - Respiratory Respiratory exam: Present: normal lung sounds bilaterally. Absent: respiratory distress, stridor - Cardiovascular Cardiovascular Exam: Present: regular rate, normal rhythm - GI/Abdominal GI/Abdominal exam: Absent: distended - Extremities Exam Extremities exam: Present: normal inspection - Neurological Exam Neurological exam: Present: alert - Psychiatric Psychiatric exam: Present: normal affect, normal mood - Skin Skin exam: Present: warm, dry, intact, normal color ED Course Vital Signs 01/19/19 01/19/19 16:45 18:48 Temperature 98.5 F Pulse Rate 84 69 Respiratory 16 22 Rate Blood Pressure 162/102 Blood Pressure 161/108 [Left] O2 Sat by Pulse 100 97 Oximetry ED Medical Decision Making - Medical Decision Making - Vitals stable, pt is hypertensive, however, O2 sats normal, no resp distress - advised family to contact his physician regarding pain management - Differential Diagnosis chronic pain Critical care attestation.: If time is entered above; I have spent that time in minutes in the direct care of this critically ill patient, excluding procedure time. ED Disposition Clinical Impression: Chronic pain Disposition: DC-01 TO HOME OR SELFCARE Is pt being admited?: No Condition: Stable Instructions: Chronic Pain (ED) Referrals: WESTON SOSA MD [Primary Care Provider] - 3-5 Days
[2019-01-19 19:57] VITALS: BP 161/108
== END 2019-01-19 19:30 | disposition home or self-care (01) ==
LOC: ED 16:36
DX: G89.29 Other chronic pain (principal); R51 Headache; M54.2 Cervicalgia; I10 Essential (primary) hypertension; Z86.718 Personal history of other venous thrombosis and embolism; Z85.01 Personal history of malignant neoplasm of esophagus
CPT/HCPCS: 96374; 99283; J1170

== ENCOUNTER 2019-02-01 02:49 | Emergency (ER) | payer MEDICAID ==
[2019-02-01 03:11] VITALS: BP 143/97
--- NOTE | 2019-02-01 03:21 | Emergency Department Report ---
ED General Adult HPI - General Chief complaint: Dyspnea/Respdistress Stated complaint: YOSVANY Time Seen by Provider: 02/01/19 02:54 Source: patient, family, EMS ( EMS documentation not available at time of chart dictation ), old records reviewed Mode of arrival: Stretcher Limitations: Other (patient does not speak. He indicates endpoints, history obtained by speaking to friends, family, patient's indications, and old medical records) - History of Present Illness Initial comments: this is a 53-year-old gentleman. Patient unfortunately has a history of advanced head and neck cancer. He has an indwelling tracheostomy with catheter. He takes the catheter in and out and his discretion. This is confirmed by his family. The patient is brought to the hospital with family with a complaint of gradual worsening of face swelling, with a sensation that the swelling is making it difficult to breathe. Apparently, this is been going on for some time. The patient is on a chronic hydromorphone pump. The patient declines pain medication at this time. His family endorses that he is tolerating liquid feeds at home. There is no endorsement of vomiting, diaphoresis, loss of consciousness, abdominal pain. Family corroborates that he is at his baseline. The patient declined pain medication in the emergency room. -: Gradual, days(s) Location: head, neck Consistency: other Improves with: other Worsens with: other - Related Data Home Medications Medication Instructions Recorded Confirmed Last Taken Docusate Sodium [Colace CAP] 100 mg PO BID 10/01/15 12/22/16 04/18/16 Oxycodone HCl [Oxycontin] 10 mg PO QID PRN 10/01/15 12/22/16 04/18/16 hydroCHLOROthiazide [HCTZ] 25 mg PO QDAY 10/01/15 12/22/16 04/18/16 Potassium Chloride [K-Dur] 20 meq PO DAILY 05/21/16 12/22/16 Unknown Albuterol Sulfate [Albuterol 0.63% 0.63 mg IH Q4H PRN 12/22/16 12/22/16 Unknown NEBS] Aspirin [Aspirin TAB] 325 mg PO QDAY 12/22/16 12/22/16 Unknown Fluticasone/Salmeterol [Advair 1 puff IH BID 12/22/16 12/22/16 Unknown Diskus 250-50 mcg] Levothyroxine [Synthroid] 125 mcg PO QAM 12/22/16 12/22/16 Unknown Magnesium Oxide [Mag-Ox] 400 mg PO QDAY 12/22/16 12/22/16 Unknown Morphine Sulfate [Ms Contin] 120 mg PO Q8H PRN 12/22/16 12/22/16 Unknown Simvastatin [Zocor TAB] 40 mg PO QHS 12/22/16 12/22/16 Unknown Previous Rx's Medication Instructions Recorded Last Taken Type Ibuprofen [Motrin 800 MG tab] 800 mg PO Q8HR PRN #45 tablet 12/22/16 Unknown Rx Pantoprazole [Protonix TAB] 40 mg PO QDAY #30 tablet 12/22/16 Unknown Rx Ibuprofen [Motrin] 800 mg PO Q8HR PRN #15 tablet 01/03/17 Unknown Rx Neomy/Polymyx B/Hc (Otic) Soln 4 drops OTIC TID #1 bottle 01/03/17 Unknown Rx [Cortisporin (Otic) Soln] HYDROcodone/APAP 10-325 [[place] 1 each PO Q6HR PRN #15 tablet 01/06/17 Unknown Rx 10/325] Pregabalin [Lyrica] 50 mg PO BID #30 capsule 01/06/17 Unknown Rx Acetaminophen [Acetaminophen TAB] 500 mg PO Q6HR PRN #20 tablet 10/20/17 Unknown Rx Potassium Chloride [K-Dur] 20 meq PO QDAY #5 tablet 10/20/17 Unknown Rx Morphine ER [Ms Contin ER] 60 mg PO Q12HR PRN #10 tablet 11/21/17 Unknown Rx Naproxen [Naprosyn] 500 mg PO BID #14 tablet 04/03/18 Unknown Rx Amoxicillin/Potassium Clav 10 ml PO Q12HR #200 ml 04/16/18 Unknown Rx [Augmentin 400-57 MG / 5ml] Acetaminophen [Tylenol Arthritis] 650 mg PO Q6HR PRN #30 tablet.er 05/14/18 Unknown Rx Ibuprofen [Motrin] 600 mg PO Q8H PRN #30 tablet 05/14/18 Unknown Rx Naloxone HCl [Narcan Nasal [place]] 4 mg NS Q1HR PRN #5 spray 05/14/18 Unknown Rx Azithromycin [Zithromax Z-FLIP] 0 mg PO DAILY #6 tab 12/19/18 Unknown Rx Prednisone [predniSONE 10 mg 10 mg PO .TAPER #1 tab.ds.pk 12/19/18 Unknown Rx (6-Day Pack, 21 Tabs)] Allergies Allergy/AdvReac Type Severity Reaction Status Date / Time No Known Allergies Allergy Verified 01/19/19 16:49 ED Review of Systems ROS: Stated complaint: YOSVANY Other details as noted in HPI Comment: see hpi ED Past Medical Hx - Past Medical History Previous Medical History?: Yes Hx Hypertension: Yes Hx CVA: No Hx Heart Attack/AMI: No Hx Congestive Heart Failure: No Hx Diabetes: No Hx Deep Vein Thrombosis: Yes (left upper extremity secondary to a port) Hx Pulmonary Embolism: No Hx GERD: No Hx Liver Disease: No Hx Renal Disease: No Hx Sickle Cell Disease: No Hx Arthritis: No Hx Headaches / Migraines: No Hx Seizures: No Hx Kidney Stones: No Hx Psychiatric Treatment: No Hx Asthma: No Hx COPD: No Hx Dementia: No Hx HIV: No Additional medical history: throat cancer, trach placed 2012; 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 Removal of peg tube,. skin grafts, removed from left wrist and right inner thigh - Social History Smoking Status: Never Smoker Substance Use Type: None - Medications Home Medications: Home Medications Medication Instructions Recorded Confirmed Last Taken Type Docusate Sodium [Colace CAP] 100 mg PO BID 10/01/15 12/22/16 04/18/16 History Oxycodone HCl [Oxycontin] 10 mg PO QID PRN 10/01/15 12/22/16 04/18/16 History hydroCHLOROthiazide [HCTZ] 25 mg PO QDAY 10/01/15 12/22/16 04/18/16 History Potassium Chloride [K-Dur] 20 meq PO DAILY 05/21/16 12/22/16 Unknown History Albuterol Sulfate [Albuterol 0.63% 0.63 mg IH Q4H PRN 12/22/16 12/22/16 Unknown History NEBS] Aspirin [Aspirin TAB] 325 mg PO QDAY 12/22/16 12/22/16 Unknown History Fluticasone/Salmeterol [Advair 1 puff IH BID 12/22/16 12/22/16 Unknown History Diskus 250-50 mcg] Ibuprofen [Motrin 800 MG tab] 800 mg PO Q8HR PRN #45 tablet 12/22/16 Unknown Rx Levothyroxine [Synthroid] 125 mcg PO QAM 12/22/16 12/22/16 Unknown History Magnesium Oxide [Mag-Ox] 400 mg PO QDAY 12/22/16 12/22/16 Unknown History Morphine Sulfate [Ms Contin] 120 mg PO Q8H PRN 12/22/16 12/22/16 Unknown History Pantoprazole [Protonix TAB] 40 mg PO QDAY #30 tablet 12/22/16 Unknown Rx Simvastatin [Zocor TAB] 40 mg PO QHS 12/22/16 12/22/16 Unknown History Ibuprofen [Motrin] 800 mg PO Q8HR PRN #15 tablet 01/03/17 Unknown Rx Neomy/Polymyx B/Hc (Otic) Soln 4 drops OTIC TID #1 bottle 01/03/17 Unknown Rx [Cortisporin (Otic) Soln] HYDROcodone/APAP 10-325 [[place] 1 each PO Q6HR PRN #15 tablet 01/06/17 Unknown Rx 10/325] Pregabalin [Lyrica] 50 mg PO BID #30 capsule 01/06/17 Unknown Rx Acetaminophen [Acetaminophen TAB] 500 mg PO Q6HR PRN #20 tablet 10/20/17 Unknown Rx Potassium Chloride [K-Dur] 20 meq PO QDAY #5 tablet 10/20/17 Unknown Rx Morphine ER [Ms Contin ER] 60 mg PO Q12HR PRN #10 tablet 11/21/17 Unknown Rx Naproxen [Naprosyn] 500 mg PO BID #14 tablet 04/03/18 Unknown Rx Amoxicillin/Potassium Clav 10 ml PO Q12HR #200 ml 04/16/18 Unknown Rx [Augmentin 400-57 MG / 5ml] Acetaminophen [Tylenol Arthritis] 650 mg PO Q6HR PRN #30 tablet.er 05/14/18 Unknown Rx Ibuprofen [Motrin] 600 mg PO Q8H PRN #30 tablet 05/14/18 Unknown Rx Naloxone HCl [Narcan Nasal [place]] 4 mg NS Q1HR PRN #5 spray 05/14/18 Unknown Rx Azithromycin [Zithromax Z-FLIP] 0 mg PO DAILY #6 tab 12/19/18 Unknown Rx Prednisone [predniSONE 10 mg 10 mg PO .TAPER #1 tab.ds.pk 12/19/18 Unknown Rx (6-Day Pack, 21 Tabs)] ED Physical Exam - General Limitations: Other (the patient is nonverbal. The patient has chronic left- sided facial swelling) General appearance: alert, in no apparent distress - Head Head exam: Present: atraumatic, normocephalic - Eye Eye exam: Present: normal appearance - ENT ENT exam: Present: normal external ear exam, other (the neck is supple. There is chronic left-sided facial swelling. There is a tracheostomy stoma noted, with no redness, pus or streaking. There is no stridor or dysphonia.) - Neck Neck exam: Present: normal inspection, full ROM. Absent: tenderness, meningismus - Respiratory Respiratory exam: Present: normal lung sounds bilaterally. Absent: respiratory distress - Cardiovascular Cardiovascular Exam: Present: regular rate, normal rhythm, normal heart sounds. Absent: bradycardia, tachycardia, irregular rhythm, systolic murmur, diastolic murmur, rubs, gallop - GI/Abdominal GI/Abdominal exam: Present: soft. Absent: distended, tenderness, guarding, rebound, rigid, pulsatile mass - Rectal Rectal exam: Present: deferred - Extremities Exam Extremities exam: Present: normal inspection, full ROM, other (2+ pulses noted in the bilateral upper, lower extremities. There is no long bone tenderness. Musculoskeletal compartments are soft. The pelvis is stable.). Absent: pedal edema, calf tenderness - Back Exam Back exam: Present: normal inspection, full ROM. Absent: tenderness, CVA tenderness (R), CVA tenderness (L), paraspinal tenderness, vertebral tenderness - Neurological Exam Neurological exam: Present: alert, other (the extraocular movements are intact bilaterally. Patient moves 4 extremities spontaneously. Sensation is intact to light touch in 4 extremities) - Skin Skin exam: Present: warm, dry, intact, normal color. Absent: rash ED Course Vital Signs 02/01/19 02/01/19 02:51 03:14 Temperature 98.1 F Pulse Rate 80 Respiratory 14 14 Rate Blood Pressure 143/97 O2 Sat by Pulse 98 98 Oximetry ED Medical Decision Making - Lab Data Vital Signs 02/01/19 02/01/19 02:51 03:14 Temperature 98.1 F Pulse Rate 80 Respiratory 14 14 Rate Blood Pressure 143/97 O2 Sat by Pulse 98 98 Oximetry - Radiology Data Radiology results: report reviewed, image reviewed Previous imaging studies are reviewed from December 2012, including CT scan of neck, and CT scan of the chest - Medical Decision Making Differential diagnosis, including not limited to: Natural progression of head and neck cancer Assessment and plan: 43-year-old gentleman here with chronic complaints. He is saturating at 97% on room air. He does not appear to be in any acute distress. Family corroborates that she is tolerating liquid medications at home. Family indicates that he'll actively takes his tracheostomy catheter out. The site does not appear to be infected. The patient declined pain medication. The patient and family were counseled that this is likely the natural expected progression of his underlying head and neck cancer. He is strongly encouraged to follow up with his outpatient head and neck oncologist, surgeon. Critical care attestation.: If time is entered above; I have spent that time in minutes in the direct care of this critically ill patient, excluding procedure time. ED Disposition Clinical Impression: Head and neck cancer Disposition: DC-01 TO HOME OR SELFCARE Is pt being admited?: No Does the pt Need Aspirin: No Condition: Stable Additional Instructions: Continue outpatient medications. Follow-up with your ENT physician as soon as possible. Unfortunately, patient is likely experiencing the expected progression of head and neck cancer. This will likely continue to get worse. Return to the emergency room right away with new, worsened or different symptoms not present on initial emergency room evaluation. Referrals: ISAMAR STEVENSON MD [Staff Physician] - 3-[address] CANTOR MD [Staff Physician] - 3-5 Days
== END 2019-02-01 04:20 | disposition home or self-care (01) ==
LOC: ED 02:49
DX: C76.0 Malignant neoplasm of head, face and neck (principal); I10 Essential (primary) hypertension; Z86.718 Personal history of other venous thrombosis and embolism; Z98.890 Other specified postprocedural states; Z79.899 Other long term (current) drug therapy; Z79.82 Long term (current) use of aspirin
CPT/HCPCS: 99282